=== PATIENT | female | born 1955 | race Caucasian/White ===

== ENCOUNTER 2019-11-08 20:43 | Emergency (ER) | payer OTHER, SELFPAY ==
[2019-11-08 20:53] VITALS: BP 118/66; PULSE 97; RESP 19; TEMP 36.6; O2SAT 97; BMI 38.2
--- NOTE | 2019-11-08 20:53 | ED.LOWEXIN ---
HPI - Extremity Injury (Lower) General Chief Complaint: Extremity Injury, Lower Stated Complaint: left knee pain Time Seen by Provider: 11/08/19 20:52 History of Present Illness HPI Narrative: 64-year-old woman with known left knee injuries and ganglion cyst was reaching up to grab a pain and stood on her tiptoes and experienced acute severe lancinating pain in the left knee. There was no specific trauma other than the extension. She was not able to bear weight and is in significant pain on arrival in the emergency room. Related Data Home Medications Medication Instructions Recorded Confirmed atorvastatin 10 mg tablet 10 mg PO BEDTIME 02/21/19 11/08/19 levothyroxine 50 mcg capsule 50 mcg PO QAM cap 02/21/19 11/08/19 aspirin 81 mg chewable tablet 81 mg PO DAILY 07/04/19 11/08/19 dupilumab 300 mg/2 mL subcutaneous 300 mg SUBCUT Q2W 08/01/19 11/08/19 syringe Previous Rx's Medication Instructions Recorded trazodone 100 mg tablet 200 mg PO BEDTIME #180 tab 04/11/19 venlafaxine 150 mg 150 mg PO DAILY #90 cap 04/11/19 capsule,extended release 24 hr duloxetine 60 mg capsule,delayed 60 mg PO BID #180 cap 10/31/19 release morphine 15 mg PO Q8H PRN #10 tab 11/08/19 Allergies Allergy/AdvReac Type Severity Reaction Status Date / Time adhesive tape Allergy Severe rash Verified 11/08/19 21:36 pseudoephedrine Allergy Severe tachy Verified 11/08/19 21:36 [From Sudafed] Sulfa (Sulfonamide Allergy Severe hives Verified 11/08/19 21:36 Antibiotics) fluticasone Allergy Intermediate hives Verified 11/08/19 21:36 [From Advair Diskus] salmeterol Allergy Intermediate hives Verified 11/08/19 21:36 [From Advair Diskus] naproxen Allergy Mild hives Verified 11/08/19 21:36 erythromycin base AdvReac Intermediate vomiting Verified 11/08/19 21:36 Review of Systems Review of Systems Narrative: Pertinent positive and negative findings as per HPI Remainder of review of systems is otherwise unremarkable for Constitutional: Fevers, chills, weakness ENT: No sore throat, neck pain, ear pain CV: Chest pain, palpitations, dyspnea on exertion Respiratory: Cough, wheeze, dyspnea GI: Nausea, vomiting, diarrhea, change in bowel habits, black or bloody stools : Dysuria, hematuria, flank pain MS: Muscle weakness, numbness, joint swelling or warmth Skin: Rashes, nonhealing lesions Neuro: Syncope, dizziness, tingling Psych: Depression, anxiety, suicidal ideation Endocrine: Fatigue, heat or cold intolerance, very dry skin Heme: Easy bruising or bleeding Allergy: Seasonal rhinorrhea, itchy eyes Patient History Medical History (Updated 11/08/19 @ 21:50 by Kimmy Larkin MD) Anxiety (Acute) History of posttraumatic stress disorder (PTSD) (Acute) Hypothyroid (Acute) Major depressive disorder, recurrent severe without psychotic features (Acute) Surgical History (Updated 11/08/19 @ 21:08 by Kimmy Larkin MD) H/O dilation and curettage (Acute) H/O hysterectomy with oophorectomy (Acute) H/O left wrist surgery (Acute) H/O sinus surgery (Acute) History of left knee surgery (Acute) Hx of breast biopsy (Acute) S/P rotator cuff repair (Acute) Social History Smoking Status: Never smoker Smoking Status: Never smoker Exam Narrative Exam Narrative: General: Alert appropriate in no acute distress Respiratory: Able to speak in full sentences, no obvious respiratory distress Skin: No obvious rashes, warm and dry Neurologic: Grossly intact no obvious asymmetries or abnormalities Psych, appropriate insight and affect, cooperative Left knee: No significant effusion, tender through the entire knee with more tenderness along the medial aspect of the knee. She is too tender to do any range of motion testing and having difficulty flexing or fully straightening the leg. Position of comfort is at approximately 20-30 degrees of flexion. There is no obvious deformity. She is neurovascularly intact distal. Initial Vital Signs Initial Vital Signs: Vital Signs Temperature 97.8 F 11/08/19 20:53 Pulse Rate 97 H 11/08/19 20:53 Respiratory Rate 19 11/08/19 20:53 Blood Pressure 118/66 11/08/19 20:53 Pulse Oximetry 97 11/08/19 20:53 Course Orders Ordered: Discontinued Medications Hydromorphone HCl (Dilaudid) 2 mg IM NOW ONE Stop: 11/08/19 21:03 Last Admin: 11/08/19 21:17 Dose: 2 mg Documented by: MILES Oxycodone/Acetaminophen (Endocet 5/325 Prepack) 1 bottle [facility] ONE Stop: 11/08/19 21:37 Last Admin: 11/08/19 21:46 Dose: 1 bottle Documented by: MILES Vital Signs Vital signs: Vital Signs - 8 hr 11/08/19 20:53 Temperature 97.8 F Pulse Rate 97 H Respiratory Rate 19 Blood Pressure 118/66 Pulse Oximetry 97 MDM - Extremity Injury (Lower) Imaging Data Left knee MRI: Radiologist's Impression: Study was done at [facility] on 10/17/2019 patient has an appointment with Dr. Mccauley, orthopedist on 11/13/2023 pain in the left knee. MRI was done in anticipation of that visit. She has the report and disc available for review. Report indicates: Tricompartmental osteoarthritis Persistent oblique tear at the posterior horn medial meniscus Persistent small radial or vertical tear at the inner 3rd of the lateral meniscal body 2.4 x 1.8 x 0.6 cm ganglion or synovial cyst between the superficial medial collateral ligament and the medial meniscal tibial ligaments without ligamentous tear Gerald Brooks MD 10/17/2019 [facility] Narrative Medical decision making narrative: Given the minimal injury prior to the excruciating pain I suspect that the full extension in reaching up to grab the kelly allowed her to rupture the ganglion or synovial cyst. She is neurovascularly intact, she has crutches at home, she has a follow-up orthopedic appointment already scheduled. She is placed in a knee immobilizer for pain control. Previous orthopedic surgeries have indicated that she does best with oral immediate release morphine for pain control and shared he has meloxicam that she uses twice a day. Will have her nonweightbearing, knee immobilizer in place as is helpful, crutches and keep her orthopedic follow-up in 5 days as previously scheduled Discharge Plan Departure Patient Disposition: Home Clinical Impression: Acute knee pain Qualifiers: Laterality: left Qualified Code(s): M25.562 - Pain in left knee Instructions: DI Ganglion Cyst Activity Restrictions/Additional Instructions: Thank you for coming in today Given the acute severe pain with the mechanism of injury being acute extension of the joint I suspect that the noted ganglion or synovial cyst in the medial part of your knee has ruptured. Aside from treating the acute pain there is nothing else that needs to be done at this time. Because of the pain I am concerned that your knee is less stable so I have given you a knee immobilizer. I would recommend crutches and a knee immobilizer until your able to safely and comfortably bear weight. Please keep your appointment next week with Dr. Mccauley regarding the ongoing knee issues. I do hope you feel better soon Prescriptions: New morphine 15 mg tablet 15 mg PO Q8H PRN (Reason: pain) Qty: 10 RF: 0 No Action levothyroxine 50 mcg capsule 50 mcg PO QAM RF: 0 atorvastatin [Lipitor] 10 mg tablet 10 mg PO BEDTIME RF: 0 duloxetine [Cymbalta] 60 mg capsule,delayed release(DR/EC) 60 mg PO BID Qty: 180 RF: 3 venlafaxine 150 mg capsule,extended release 24hr 150 mg PO DAILY Qty: 90 RF: 3 trazodone 100 mg tablet 200 mg PO BEDTIME Qty: 180 RF: 3 aspirin [Aspirin Childrens] 81 mg tablet,chewable 81 mg PO DAILY RF: 0 Dupixent 300 mg/2 mL syringe 300 mg SUBCUT Q2W RF: 0 Referrals: Momo Mccauley MD [Non-Staff] - Tamia Cabral PA-C [Primary Care Provider] -
[2019-11-08] MEDS: HYDROMORPHONE 1 MG INJ 2 MG IM (21:17)
[2019-11-08] MEDS: OXYCODONE/APAP 5/325 PREPACK 1 BOTTLE MISC (21:46)
[2019-11-08 21:54] VITALS: BP 104/59; PULSE 84; RESP 16; O2SAT 95
== END 2019-11-08 21:55 | disposition home or self-care (01) ==
PROVIDERS: Emergency Provider Emergency Medicine; PCP Physician Assistant Medical; Referring Provider Orthopaedic Surgery
DX: M25.562 Pain in left knee (principal)
CPT/HCPCS: 96372; 99283; J1170

== ENCOUNTER 2020-08-23 18:31 | Emergency (ER) | payer OTHER, SELFPAY ==
[2020-08-23] VITALS (10 sets, daily range): BP systolic 113–142; BP diastolic 58–77; PULSE 89–97; RESP 17–31; TEMP 36.6–36.9; O2SAT 93–98
--- NOTE | 2020-08-23 19:05 | DI.RAD.S_ITS ---
PROCEDURE: XR CHEST 2V INDICATIONS: shortness of breath TECHNIQUE: 2 views of the chest were acquired. COMPARISON: [facility], CR, XR CHEST 1 VIEW, 05/22/2019, 16:23. FINDINGS: Surgical changes and devices: None. Lungs and pleura: Lungs are clear. No pleural effusions or pneumothorax. Mediastinum: Mediastinal contours are normal. Heart size is normal. Bones and chest wall: No suspicious bony abnormalities. Soft tissues appear unremarkable. IMPRESSION: No acute cardiopulmonary disease. Dictated by: Matthew Puri M.D. on 08/23/2020 at 20:01 Approved by: Matthew Puri M.D. on 08/23/2020 at 20:01
[2020-08-23 19:33] LABS: COVID19 -Nasal RAPID Negative (Negative)
--- NOTE | 2020-08-23 19:56 | ED.SOB ---
HPI - SOB/Dyspnea General Chief Complaint: Shortness of Breath/Dyspnea Stated Complaint: cold, asthma, getting worse Time Seen by Provider: 08/23/20 19:41 Source: patient Mode of arrival: Wheelchair Limitations: no limitations History of Present Illness HPI Narrative: Patient is a 65-year-old female history of asthma presenting with respiratory symptoms ongoing for the last 3 days ago. She has nonproductive cough she is complaining of chest tightness. She used her albuterol inhaler last night in got some erythema on her face and no longer wants to take albuterol. She denies any lip swelling tongue swelling or worsening difficulty breathing. She was seen at a walk-in clinic today she got an IM injection of Solu-Medrol and inhalers of Atrovent along with prednisone taper. She presents here with worsening shortness of breath and chest tightness. She also has a history of remote PE she is no longer on any anticoagulation. She denies any fever chills, or coffee MD Complaint: shortness of breath Onset (ago): day(s) (3) Related Data Home Medications Medication Instructions Recorded Confirmed atorvastatin 10 mg tablet 10 mg PO BEDTIME 02/21/19 06/12/20 levothyroxine 50 mcg capsule 50 mcg PO QAM cap 02/21/19 06/12/20 aspirin 81 mg chewable tablet 81 mg PO DAILY 07/04/19 06/12/20 dupilumab 300 mg/2 mL subcutaneous 300 mg SUBCUT Q2W 08/01/19 06/12/20 syringe cholecalciferol (vitamin D3) 125 125 mcg PO DAILY 12/25/19 06/12/20 mcg (5,000 unit) capsule cyclobenzaprine 10 mg tablet 10 mg PO TID 06/12/20 06/12/20 methoprednisolone PO taper for 6 .ROUTE 06/12/20 06/12/20 days Previous Rx's Medication Instructions Recorded venlafaxine 150 mg 150 mg PO DAILY #90 cap 03/20/20 capsule,extended release 24 hr duloxetine 60 mg capsule,delayed 60 mg PO BID #180 cap 05/05/20 release trazodone 100 mg tablet 100 mg PO BEDTIME #90 tab 06/12/20 levalbuterol HCl [Xopenex] 1.25 mg INHALATION Q4-6H PRN #75 ml 08/23/20 Allergies Allergy/AdvReac Type Severity Reaction Status Date / Time adhesive tape Allergy Severe rash Verified 08/23/20 19:06 pseudoephedrine Allergy Severe tachy Verified 08/23/20 19:06 [From Sudafed] Sulfa (Sulfonamide Allergy Severe hives Verified 08/23/20 19:06 Antibiotics) fluticasone Allergy Intermediate hives Verified 08/23/20 19:06 [From Advair Diskus] salmeterol Allergy Intermediate hives Verified 08/23/20 19:06 [From Advair Diskus] naproxen Allergy Mild hives Verified 08/23/20 19:06 erythromycin base AdvReac Intermediate vomiting Verified 08/23/20 19:06 albuterol AdvReac Mild Verified 08/23/20 19:06 Review of Systems Review of Systems Narrative: GENERAL: Denies chills, fatigue, malaise, fever, sweats, travel HEENT: Denies sinus pain, ear pain, sore throat, difficulty swallowing, neck pain RESPIRATORY: See HPI CARDIOVASCULAR: Denies chest pain, palpitations, orthopnea, edema GASTROINTESTINAL: Denies nausea, vomiting, abdominal pain, diarrhea, constipation, melena. : Denies dysuria, frequency, incontinence, hematuria, urinary retention, flank pain. MUSCULOSKELETAL: Denies weakness, joint pain, or bony pain SKIN: No rash, no erythema, no pruritus NEUROLOGIC: Denies weakness, dizziness, headache, numbness, change in speech, confusion PSYCHIATRIC: No concerning psychosocial issues. 12 point review of systems is negative except for those stated above and HPI Patient History Medical History Anxiety History of posttraumatic stress disorder (PTSD) Hypothyroid Major depressive disorder, recurrent severe without psychotic features Surgical History H/O dilation and curettage H/O hysterectomy with oophorectomy H/O left wrist surgery H/O sinus surgery History of left knee surgery Hx of breast biopsy S/P rotator cuff repair Social History Smoking Status: Never smoker Smoking Status: Never smoker Substance Use Type: does not use Exam Initial Vital Signs Initial Vital Signs: Vital Signs Temperature 97.9 F 08/23/20 18:58 Pulse Rate 95 H 08/23/20 18:58 Respiratory Rate 17 08/23/20 18:58 Blood Pressure 142/77 H 08/23/20 18:58 Pulse Oximetry 97 08/23/20 18:58 GENERAL: Alert 65-year-old female slightly anxious and in no acute distress. HEENT: Head atraumatic,EOMI, pupils reactive, face symmetric, moist mucous membranes CARDIOVASCULAR: Regular rate and rhythm without murmurs, rubs or gallops. RESPIRATORY: Breath sounds equal bilaterally, no wheezes rales or rhonchi. ABDOMEN: Soft, nontender. Normoactive bowel sounds all 4 quadrants. No guarding or rebound. EXTREMITIES: Normal range of motion, no clubbing or edema. Neurovascularly intact NEUROLOGICAL: Alert and oriented x4.Normal gait and speech. Cranial nerves II through XII grossly intact. SKIN: Warm, dry, no laceration, no petechiae, no rashes or lesions. Course Orders Ordered: ED Orders 08/23/20 19:03 EKG-12 Lead Stat 08/23/20 19:05 XR chest 2V Stat COVID19 Stat Measure peak expiratory flow ONCE RT Consult Eval and Treat Now 08/23/20 19:57 CT angio chest PE protocol Stat 08/23/20 19:58 Complete Blood Count AUTO DIFF Stat Comprehensive Metabolic Panel Stat Lactate (Lactic Acid) Stat Discontinued Medications Levalbuterol HCl (Levalbuterol 0.63 Mg/3 Ml Neb) 0.63 mg INH NOW ONE Stop: 08/23/20 19:58 Last Admin: 08/23/20 20:37 Dose: Not Given Documented by: KWAKU Levalbuterol HCl (Levalbuterol 1.25 Mg/0.5 Ml Neb) 1.25 mg INH NOW ONE Stop: 08/23/20 20:18 Last Admin: 08/23/20 20:20 Dose: 1.25 mg Documented by: MICHELLE Levalbuterol HCl (Levalbuterol Hfa 200 Puff Inh) 1 puff INH NOW ONE Stop: 08/23/20 22:06 Last Admin: 08/23/20 22:22 Dose: Not Given Documented by: KWAKU Vital Signs Vital signs: Vital Signs - 8 hr 08/23/20 19:14 08/23/20 19:30 08/23/20 20:00 Temperature Pulse Rate 90 91 H 89 Respiratory Rate 19 21 23 Blood Pressure 138/69 Pulse Oximetry 94 93 93 08/23/20 20:20 08/23/20 20:30 08/23/20 21:00 Temperature 98.4 F Pulse Rate 94 H 92 H 97 H Respiratory Rate 20 31 H 23 Blood Pressure Pulse Oximetry 96 98 93 08/23/20 21:25 08/23/20 21:30 08/23/20 22:00 Temperature Pulse Rate 93 H 91 H 90 Respiratory Rate 24 25 H 27 H Blood Pressure 125/58 L 128/64 113/73 Pulse Oximetry 95 94 95 MDM - SOB/Dyspnea Lab Data Attestation: I reviewed the patient's lab results. Result diagrams: 08/23/20 19:58 08/23/20 19:58 Labs: Lab Results 08/23/20 08/23/20 08/23/20 Range/Units 19:05 19:58 19:58 WBC 7.3 (4.5-11.0) X10^3/uL RBC 4.37 (4.0-5.2) X10^6/uL Hgb 13.0 (12.0-16.0) g/dL Hct 39.7 (36-46) % MCV 90.7 (80-100) fL MCH 29.7 (26-34) PG MCHC 32.7 (30-36) % RDW 13.8 (11.6-14.8) % Plt Count 241 (150-400) X10^3/uL Neut % (Auto) 86.3 H (50-75) % Lymph % (Auto) 11.7 L (25-40) % Da[place]hin % (Auto) 1.6 L (3-14) % Eos % (Auto) 0.1 L (2-4) % Baso % (Auto) 0.3 (0-2) % Neut # (Auto) 6300 (2350-2242) /uL Lymph # (Auto) 900 L (9274-0007) /uL [place]hin # (Auto) 100 (0-900) /uL Eos # (Auto) 0 (0-450) /uL Baso # (Auto) 0 (0-100) /uL Sodium 137 (137-145) mmol/L Potassium 4.0 (3.4-5.1) mmol/L Chloride 107 (98-107) mmol/L Carbon Dioxide 22 (22-32) mmol/L BUN 21 H (7-17) mg/dL Creatinine 0.67 (0.52-1.04) mg/dL Estimated GFR > 60.0 (>60) mL/min BUN/Creatinine Ratio 31.3 H (6-22) Glucose 167 H (80-110) mg/dL Lactate (0.7-2.1) mmol/L Calcium 9.7 (8.4-10.2) mg/dL Total Bilirubin 0.4 (0.2-1.3) mg/dL AST 46 H (14-36) IU/L ALT 38 H (<35) IU/L Alkaline Phosphatase 75 (38-126) U/L Total Protein 7.5 (6.3-8.2) g/dL Albumin 4.4 (3.5-5.0) g/dL Globulin 3.1 (1.7-4.1) g/dL Albumin/Globulin Ratio 1.4 (1.0-2.8) SARS-CoV-2 (PCR) Negative (Negative) 08/23/20 Range/Units 19:58 WBC (4.5-11.0) X10^3/uL RBC (4.0-5.2) X10^6/uL Hgb (12.0-16.0) g/dL Hct (36-46) % MCV (80-100) fL MCH (26-34) PG MCHC (30-36) % RDW (11.6-14.8) % Plt Count (150-400) X10^3/uL Neut % (Auto) (50-75) % Lymph % (Auto) (25-40) % Da[place]hin % (Auto) (3-14) % Eos % (Auto) (2-4) % Baso % (Auto) (0-2) % Neut # (Auto) (1924-4314) /uL Lymph # (Auto) (1396-1761) /uL [place]hin # (Auto) (0-900) /uL Eos # (Auto) (0-450) /uL Baso # (Auto) (0-100) /uL Sodium (137-145) mmol/L Potassium (3.4-5.1) mmol/L Chloride (98-107) mmol/L Carbon Dioxide (22-32) mmol/L BUN (7-17) mg/dL Creatinine (0.52-1.04) mg/dL Estimated GFR (>60) mL/min BUN/Creatinine Ratio (6-22) Glucose (80-110) mg/dL Lactate 1.8 (0.7-2.1) mmol/L Calcium (8.4-10.2) mg/dL Total Bilirubin (0.2-1.3) mg/dL AST (14-36) IU/L ALT (<35) IU/L Alkaline Phosphatase (38-126) U/L Total Protein (6.3-8.2) g/dL Albumin (3.5-5.0) g/dL Globulin (1.7-4.1) g/dL Albumin/Globulin Ratio (1.0-2.8) SARS-CoV-2 (PCR) (Negative) Urine Dip Bedside Urine Glucose Negative Bedside Urine Bilirubin - Negative Bedside Urine Ketone - Negative Urine Specific Cushing 1.020 Bedside Urine Occult Blood + Bedside Urine pH 6.0 Bedside Urine Protein - Negative Bedside Urine Urobilinogen - Negative Bedside Urine Nitrite - Negative Bedside Urine Leukocytes - Negative Esterase Imaging Data Chest x-ray: Radiologist's Impression: PROCEDURE: XR CHEST 2V INDICATIONS: shortness of breath TECHNIQUE: 2 views of the chest were acquired. COMPARISON: [facility], XR CHEST 1 VIEW, 05/22/2019, 16:23. FINDINGS: Surgical changes and devices: None. Lungs and pleura: Lungs are clear. No pleural effusions or pneumothorax. Mediastinum: Mediastinal contours are normal. Heart size is normal. Bones and chest wall: No suspicious bony abnormalities. Soft tissues appear unremarkable. IMPRESSION: No acute cardiopulmonary disease. Dictated by: Matthew Puri M.D. on 08/23/2020 at 20:01 CT scan - chest: Radiologist's Impression: PROCEDURE: CT ANGIO CHEST PE PROTOCOL INDICATIONS: prior PE with SOB TECHNIQUE: After the administration of intravenous contrast, 2 mm thick sections acquired from the pulmonary apices to the posterior costophrenic angles. 3-dimensional maximum intensity projection (MIP) coronal and sagittal reformats were then acquired through the thorax. For radiation dose reduction, the following was used: automated exposure control, adjustment of mA and/or kV according to patient size. COMPARISON: [facility], XR CHEST 2V, 08/23/2020, 19:28. FINDINGS: Image quality: Excellent. Pulmonary arteries: Pulmonary arteries are normal in size, and demonstrate no intraluminal filling defects to suggest central pulmonary embolism. There is a small right lower lobe nodule. Nodule 1: 4mm; RLL; series 5, image 163. Lungs and pleura: Lungs are clear. No pleural effusions or pneumothorax. Central and peripheral airways are patent. Mediastinum: Heart size is normal, without pericardial effusion. Mild mediastinal adenopathy. There is a 1.1 cm right paratracheal lymph node. A 1.4 cm subcarinal lymph node is noted. Thoracic aorta is normal in caliber and enhancement. Esophagus is normal in caliber, without hiatal hernia. Bones and chest wall: No suspicious bony lesions. Ribs and thoracic spine appear intact throughout. Thyroid gland is normal. No axillary or supraclavicular adenopathy. Abdomen: Visualized upper abdominal solid organs appear normal in the early arterial phase of enhancement. IMPRESSION: 1. No evidence for pulmonary embolism. 2. Mild mediastinal lymphadenopathy. This finding is nonspecific and may be secondary to infectious, inflammatory or neoplastic etiology. Recommend clinical correlation and follow up. 3. A 4 mm right lower lobe nodule. Please see enclosed follow-up recommendation. Fleischner Society criteria for SOLID lung nodule followup. Nodule size (mm)Low-risk patientHigh-risk patient?4No follow-up neededFollow-up at 12 mo; if no change, no further follow-up>2-2Rnrbhd-mh CT at 12 mo; if no change, no further follow-up needed.Initial follow-up CT at 6-12 mo, then 18-24 mo if no change. >6-8Initial follow-up CT at 6-12 mo, then 18-24 mo if no change. Initial follow-up CT at 3-6 mo, then 9-12 mo and 24 mo if no change. >8Follow-up CT at 3, 9, 24 mo. Or PET and/or biopsy.Same as for low-risk pts. Dictated by: Matthew Puri M.D. on 08/23/2020 at 21:02 ECG Data Attestation: I personally reviewed and interpreted this ECG as follows: Prior ECG tracings: not available for review Interpretation: Normal sinus rhythm rate 91 p.r. interval 194 QRS [address] changes Q-wave noted in lead 3 only MDM Narrative Medical decision making narrative: Patient improved this open next. Signs and symptoms are consistent with asthma exacerbation. No indication for antibiotics at this time. CT is negative for PE. Her symptoms improved with Xopenex. She has already been given prescription for long prednisone taper. I have instructed her again how to take this medication. She is given Xopenex as opposed to albuterol. I recommend she use this as a rescue inhaler and have advised her that if her pain is not a rescue inhaler and was used as an adjunct with albuterol or Xopenex. I discussed all findings with the patient and spouse, Education has been performed regarding treatment plan, diagnosis, warning signs and symptoms and all concerns have been addressed. Verbally agree with and understood all of the above. Discharge Plan Departure Patient Disposition: Home Clinical Impression: Asthma with exacerbation Qualifiers: Asthma severity: moderate Asthma persistence: persistent Qualified Code(s): J45.41 - Moderate persistent asthma with (acute) exacerbation Instructions: DI for Asthma -- Adult Activity Restrictions/Additional Instructions: *You have been diagnosed with asthma exacerbation *What to do: At this time no antibiotics are indicated. CT scan is negative for pulmonary embolism. Recommend resting. *Continue to take medications as directed Xopenex 1-2 puffs every 4 hours if needed for shortness of breath Atrovent 1-2 times daily to be used with Xopenex, this is not a rescue inhaler Take prednisone as previously prescribed *Follow up with your primary care provider in 2-3 days *Return to ER if you should have increase use of Dovonex, increasing shortness of breath, chest pain or any new, worsening or concerning symptoms Prescriptions: New levalbuterol HCl [Xopenex] 1.25 mg/3 mL solution for nebulization 1.25 mg inhalation Q4-6H PRN (Reason: shortness of breath or wheezing) Qty: 75 RF: 0 No Action levothyroxine 50 mcg capsule 50 mcg PO QAM RF: 0 atorvastatin [Lipitor] 10 mg tablet 10 mg PO BEDTIME RF: 0 cholecalciferol (vitamin D3) 125 mcg (5,000 unit) capsule 125 mcg PO DAILY RF: 0 venlafaxine 150 mg capsule,extended release 24hr 150 mg PO DAILY Qty: 90 RF: 3 aspirin [Aspirin Childrens] 81 mg tablet,chewable 81 mg PO DAILY RF: 0 Dupixent Syringe 300 mg/2 mL syringe 300 mg SUBCUT Q2W RF: 0 cyclobenzaprine 10 mg tablet 10 mg PO TID RF: 0 methoprednisolone PO taper for 6 days .Route RF: 0 trazodone 100 mg tablet 100 mg PO BEDTIME Qty: 90 RF: 3 duloxetine [Cymbalta] 60 mg capsule,delayed release(DR/EC) 60 mg PO BID Qty: 180 RF: 3 Referrals: Tamia Cabral PA-C [Primary Care Provider] -
[2020-08-23 20:06] LABS: Add Manual Diff / Slide Review NO; Basophils Absolute Auto 0 /uL (0-100); Basophils Percent Auto 0.3 % (0-2); Eosinophils Absolute Auto 0 /uL (0-450); Eosinophils Percent Auto 0.1 % (2-4); Hematocrit 39.7 % (36-46); Lymphocytes Absolute Auto 900 /uL (1100-4500); Lymphocytes Percent Auto 11.7 % (25-40); Mean Corpuscular HGB Conc 32.7 % (30-36); Mean Corpuscular Hemoglobin 29.7 PG (26-34); Mean Corpuscular Volume 90.7 fL (80-100); Monocytes Absolute Auto 100 /uL (0-900); Monocytes Percent Auto 1.6 % (3-14); Neutrophils Absolute Auto 6300 /uL (1500-7000); Neutrophils Percent Auto 86.3 % (50-75); Platelet Count 241 X10^3/uL (150-400); Red Blood Cell Count 4.37 X10^6/uL (4.0-5.2); Red Cell Distribution Width 13.8 % (11.6-14.8); White Blood Cell Count 7.3 X10^3/uL (4.5-11.0)
[2020-08-23 20:17] LABS: Lactate (Lactic Acid) 1.8 mmol/L (0.7-2.1)
[2020-08-23 20:19] LABS: Alanine Aminotransferase 38 IU/L (<35); Albumin 4.4 g/dL (3.5-5.0); Albumin Globulin Ratio 1.4 (1.0-2.8); Alkaline Phosphatase 75 U/L (38-126); Aspartate Aminotransferase 46 IU/L (14-36); BUN Creatinine Ratio 31.3 (6-22); Bilirubin Total 0.4 mg/dL (0.2-1.3); Blood Urea Nitrogen 21 mg/dL (7-17); Calcium 9.7 mg/dL (8.4-10.2); Carbon Dioxide 22 mmol/L (22-32); Chloride 107 mmol/L (98-107); Estimated Glomerular Filt Rate > 60.0 mL/min (>60); Globulin 3.1 g/dL (1.7-4.1); Glucose 167 mg/dL (80-110); HEMOLYSIS < 15 (0-50); Sodium 137 mmol/L (137-145); Total Protein 7.5 g/dL (6.3-8.2)
[2020-08-23] MEDS: LEVALBUTEROL 1.25 MG/0.5 ML NEB INH (20:20)
--- NOTE | 2020-08-23 21:30 | PC.NURSE ---
accepting provider at [facility] requesting BiPap for pt's ABG. Pt advised and educated by RT on purpose of Bipap. pt refusing. aware.
== END 2020-08-23 22:23 | disposition home or self-care (01) ==
PROVIDERS: Emergency Provider Emergency Medicine; PCP Physician Assistant Medical
DX: J45.41 Moderate persistent asthma with (acute) exacerbation (principal); R06.02 Shortness of breath; R07.9 Chest pain, unspecified; Z20.822 Contact with and (suspected) exposure to COVID-19
CPT/HCPCS: 36415; 71046; 71275; 80053; 81003; 83605; 85025; 87635; 93005; 94150; 94640; 99284; C9803; J7614; Q9967

== ENCOUNTER 2020-08-25 09:57 | Inpatient (IN) | payer OTHER, SELFPAY ==
[2020-08-25] VITALS (21 sets, daily range): BP systolic 115–150; BP diastolic 55–84; PULSE 72–90; RESP 14–36; TEMP 36.3–37.2; O2SAT 92–99; BMI 39.1
--- NOTE | 2020-08-25 10:23 | ED.SOB ---
HPI - SOB/Dyspnea <Beatrice Sorto, [employer] PROFESSOR-BC - Last Filed: 08/25/20 14:40> General Chief Complaint: Shortness of Breath/Dyspnea Stated Complaint: Asthma flare up Time Seen by Provider: 08/25/20 10:19 Source: patient Mode of arrival: Ambulatory Limitations: no limitations History of Present Illness HPI Narrative: The patient is a 65-year-old with history of asthma presents with a chief complaint of worsening shortness of breath and an asthma exacerbation. She was actually here 2 days ago, received chest x-ray, coronavirus swab, was placed on a steroid pack for which she is on day 3. She does note that she did not get albuterol last time as she states she had an allergy, which is clarified to be red skin on her forehead. She presents this time requesting albuterol. She does complain of shortness of breath with exertion today. She notes that a few days ago, she had a CT a to rule out pulmonary embolism, as well as a chest x-ray. The past few days she states she has started producing yellow off colored sputum. Denies any fevers. She states she thinks she is taking 40 mg of prednisone per day, but is not sure. She has been admitted for her asthma prior, has never been intubated. Most recent admission was a few years ago at [facility] for several days. Related Data Home Medications Medication Instructions Recorded Confirmed atorvastatin 10 mg tablet 20 mg PO BEDTIME 02/21/19 08/25/20 levothyroxine 50 mcg capsule 50 mcg PO QAM cap 02/21/19 08/25/20 aspirin 81 mg chewable tablet 81 mg PO DAILY 07/04/19 08/25/20 dupilumab 300 mg/2 mL subcutaneous 300 mg SUBCUT Q2W 08/01/19 08/25/20 syringe cholecalciferol (vitamin D3) 125 125 mcg PO DAILY 12/25/19 08/25/20 mcg (5,000 unit) capsule prednisolone acetate [Pred Forte] 1 drp EYE-RIGHT BID 08/25/20 08/25/20 prednisone 40 mg PO DAILY 08/25/20 08/25/20 venlafaxine [Effexor XR] 150 mg PO DAILY 08/25/20 08/25/20 Previous Rx's Medication Instructions Recorded duloxetine 60 mg capsule,delayed 60 mg PO BID #180 cap 05/05/20 release trazodone 100 mg tablet 100 mg PO BEDTIME #90 tab 06/12/20 levalbuterol HCl [Xopenex] 1.25 mg INHALATION Q4-6H PRN #75 ml 08/23/20 levalbuterol tartrate [Xopenex HFA] 2 puff INHALATION Q4-6H PRN #15 g 08/24/20 Allergies Allergy/AdvReac Type Severity Reaction Status Date / Time adhesive tape Allergy Severe rash Verified 08/23/20 19:06 pseudoephedrine Allergy Severe tachy Verified 08/23/20 19:06 [From Sudafed] Sulfa (Sulfonamide Allergy Severe hives Verified 08/23/20 19:06 Antibiotics) fluticasone Allergy Intermediate hives Verified 08/23/20 19:06 [From Advair Diskus] salmeterol Allergy Intermediate hives Verified 08/23/20 19:06 [From Advair Diskus] naproxen Allergy Mild hives Verified 08/23/20 19:06 erythromycin base AdvReac Intermediate vomiting Verified 08/23/20 19:06 albuterol AdvReac Mild Verified 08/23/20 19:06 Review of Systems <LEELA Malin - Last Filed: 08/25/20 14:40> Review of Systems Narrative: GENERAL: Denies chills, fatigue, malaise, fever, sweats. HEENT: Denies sinus pain, ear pain, sore throat, difficulty swallowing, dizziness. RESPIRATORY: See HPI CARDIOVASCULAR: Denies chest pain, palpitations, orthopnea, edema, GASTROINTESTINAL: Denies nausea, vomiting, abdominal pain, diarrhea, constipation, melena. : Denies dysuria, frequency, incontinence, hematuria, urinary retention. MUSCULOSKELETAL: denies weakness, joint pain, or bony pain SKIN: Denies rash, skin lesions, or other NEUROLOGIC: Denies weakness, headache, numbness, change in speech, confusion, seizures, incoordination. PSYCHIATRIC: No concerning psychosocial issues. 12 point review of systems is negative except for those stated above Patient History <LEELA Malin - Last Filed: 08/25/20 14:40> Medical History (Updated 08/25/20 @ 17:14 by Guillermina Aviles RN) Anxiety Diabetes History of posttraumatic stress disorder (PTSD) Hypothyroid Major depressive disorder, recurrent severe without psychotic features Surgical History H/O dilation and curettage H/O hysterectomy with oophorectomy H/O left wrist surgery H/O sinus surgery History of left knee surgery Hx of breast biopsy S/P rotator cuff repair Social History household members: spouse Smoking Status: Never smoker alcohol intake: current Smoking Status: Never smoker Substance Use Type: does not use Exam <MCKAYLA Malin - Last Filed: 08/25/20 14:40> Narrative Exam Narrative: GENERAL: This is a well-nourished, well-developed patient, in no acute distress HEAD: Atraumatic. Normocephalic. No temporal or scalp tenderness. EYES: Pupils equal round and reactive. Extraocular motions intact. No scleral icterus. No injection or drainage. ENT: Nose without bleeding, purulent drainage or septal hematoma. Throat without erythema, tonsillar hypertrophy or exudate. Uvula midline. Airway patent. NECK: Trachea midline. No JVD or lymphadenopathy. Supple, nontender, no meningeal signs. CARDIOVASCULAR: Regular rate and rhythm without murmurs, gallops, or rubs. RESPIRATORY: Tachypneic, 2 word dyspnea, decreased to auscultation with very slight expiratory wheeze noted upper left, however not try potting and lying back reclining on stretcher GASTROINTESTINAL: Abdomen soft, non-tender, nondistended. No hepato-splenomegaly, or palpable masses. No guarding. EXTREMITIES: No clubbing, cyanosis, or edema. No joint tenderness, effusion, or edema noted. BACK: Nontender without deformity or crepitance. No flank tenderness. NEURO: AOx3. SKIN: No rash or erythema on visible skin Initial Vital Signs Initial Vital Signs: Vital Signs Temperature 98.9 F 08/25/20 10:19 Pulse Rate 90 08/25/20 10:19 Respiratory Rate 16 08/25/20 10:19 Blood Pressure 140/68 08/25/20 10:19 Pulse Oximetry 98 08/25/20 10:19 <David Powers DO - Last Filed: 08/25/20 17:25> Initial Vital Signs Initial Vital Signs: Vital Signs Temperature 98.9 F 08/25/20 10:19 Pulse Rate 90 08/25/20 10:19 Respiratory Rate 16 08/25/20 10:19 Blood Pressure 140/68 08/25/20 10:19 Pulse Oximetry 98 08/25/20 10:19 Scores <Beatrice OSBALDO Sorto-BC - Last Filed: 08/25/20 14:40> GCS [place] coma scale eye opening: Spontaneous [place] coma scale verbal response: Orientated [place] coma scale motor response: Obey commands [place] coma scale total score: 15 Course <Beatrice OSBALDO Sorto-BC - Last Filed: 08/25/20 14:40> Orders Ordered: ED Orders 08/25/20 10:17 COVID19 Stat 08/25/20 10:56 XR chest 2V Stat Sputum Culture Stat 08/25/20 11:16 Complete Blood Count AUTO DIFF Stat Comprehensive Metabolic Panel Stat Magnesium Stat NT-proBNP (BNP-Adult 18+) Stat Partial Thromboplastin Time Stat Prothrombin Time INR Stat Troponin & CK Cardiac Panel Stat 08/25/20 12:55 Arterial Blood Gas Stat Acetaminophen (Acetaminophen 325 Mg Tablet) 650 mg PO Q6HR PRN PRN Reason: Fever/Mild Pain (1-3) Last Admin: 08/25/20 17:18 Dose: 650 mg Documented by: LASHANDA Albuterol (Albuterol 2.5 Mg/3 Ml Neb (Adult)) 2.5 mg INH [id number] PRN PRN Reason: shortness of breath Albuterol/Ipratropium (Albuterol/Ipratropium 3 Ml Ampul) 3 ml INH RTBID JUSTIN Atorvastatin Calcium (Atorvastatin 20 Mg Tablet) 20 mg PO BEDTIME JUSTIN Duloxetine HCl (Duloxetine 30 Mg Capsule) 60 mg PO BID [facility] Enoxaparin Sodium (Enoxaparin 40 Mg/0.4 Ml Syringe) 40 mg SUBCUT DAILY [facility] Levothyroxine Sodium (Levothyroxine 50 Mcg Tablet) 50 mcg PO 0600 JUSTIN Prednisolone Acetate (Prednisolone Ophth Susp) 1 drops EYE-RIGHT BID [facility] Trazodone HCl (Trazodone 100 Mg Tablet) 100 mg PO BEDTIME JUSTIN Venlafaxine HCl (Venlafaxine Er 75 Mg Cap) 150 mg PO DAILY [facility] Vitamin D (Cholecalciferol (Vitamin D3) 5,000 Unit Tablet) 5,000 unit PO DAILY JUSTIN Discontinued Medications Albuterol (Albuterol 2.5 Mg/3 Ml Neb (Adult)) 2.5 mg INH NOW ONE Stop: 08/25/20 10:21 Last Admin: 08/25/20 11:04 Dose: 2.5 mg Documented by: ZACKERY Albuterol (Albuterol Hfa Mdi 60 Puff/8 Gm Inhaler) 2 puff INH NOW ONE Stop: 08/25/20 10:21 Last Admin: 08/25/20 10:32 Dose: 2 puff Documented by: ZACKERY Albuterol (Albuterol 2.5 Mg/3 Ml Neb (Adult)) 2.5 mg INH NOW ONE Stop: 08/25/20 11:52 Last Admin: 08/25/20 11:59 Dose: 2.5 mg Documented by: ZACKERY Magnesium Sulfate (Magnesium Sulfate) 2 gm in 50 mls @ 25 mls/hr IV NOW ONE Stop: 08/25/20 14:09 Last Infusion: 08/25/20 12:50 Dose: 0 mls/hr Documented by: KWAKU Cosigned by: ELIZABETH Admin: 08/25/20 12:23 Dose: 100 mls/hr Documented by: KWAKU Cosigned by: ELIZABETH Methylprednisolone (Methylprednisolone 125 Mg/2 Ml Vial) 125 mg IV NOW ONE Stop: 08/25/20 11:44 Last Admin: 08/25/20 11:50 Dose: 125 mg Documented by: KWAKU Vital Signs Vital signs: Vital Signs - 8 hr 08/25/20 10:19 08/25/20 10:28 08/25/20 10:53 Temperature 98.9 F Pulse Rate 90 80 81 Respiratory Rate 16 26 H 29 H Blood Pressure 140/68 Pulse Oximetry 98 99 94 08/25/20 11:00 08/25/20 11:05 08/25/20 11:28 Temperature Pulse Rate 86 82 Respiratory Rate 36 H 26 H Blood Pressure 128/69 115/58 L Pulse Oximetry 94 98 93 08/25/20 11:29 08/25/20 11:30 08/25/20 11:52 Temperature 97.5 F L Pulse Rate 80 81 Respiratory Rate 26 H 23 Blood Pressure 117/55 L Pulse Oximetry 93 92 08/25/20 11:59 08/25/20 12:00 08/25/20 12:23 Temperature Pulse Rate 78 82 80 Respiratory Rate 24 14 28 H Blood Pressure 124/60 Pulse Oximetry 99 98 94 08/25/20 12:30 08/25/20 13:00 08/25/20 13:30 Temperature Pulse Rate 84 79 83 Respiratory Rate 23 32 H 25 H Blood Pressure 122/55 L 116/56 L 118/58 L Pulse Oximetry 93 95 95 <David Powers, DO - Last Filed: 08/25/20 17:25> Orders Ordered: ED Orders 08/25/20 10:17 COVID19 Stat 08/25/20 10:56 XR chest 2V Stat Sputum Culture Stat 08/25/20 11:16 Complete Blood Count AUTO DIFF Stat Comprehensive Metabolic Panel Stat Magnesium Stat NT-proBNP (BNP-Adult 18+) Stat Partial Thromboplastin Time Stat Prothrombin Time INR Stat Troponin & CK Cardiac Panel Stat 08/25/20 12:55 Arterial Blood Gas Stat Acetaminophen (Acetaminophen 325 Mg Tablet) 650 mg PO Q6HR PRN PRN Reason: Fever/Mild Pain (1-3) Last Admin: 08/25/20 17:18 Dose: 650 mg Documented by: LASHANDA Albuterol (Albuterol 2.5 Mg/3 Ml Neb (Adult)) 2.5 mg INH [id number] PRN PRN Reason: shortness of breath Albuterol/Ipratropium (Albuterol/Ipratropium 3 Ml Ampul) 3 ml INH RTBID JUSTIN Atorvastatin Calcium (Atorvastatin 20 Mg Tablet) 20 mg PO BEDTIME JUSTIN Duloxetine HCl (Duloxetine 30 Mg Capsule) 60 mg PO BID [facility] Enoxaparin Sodium (Enoxaparin 40 Mg/0.4 Ml Syringe) 40 mg SUBCUT DAILY [facility] Levothyroxine Sodium (Levothyroxine 50 Mcg Tablet) 50 mcg PO 0600 [facility] Prednisolone Acetate (Prednisolone Ophth Susp) 1 drops EYE-RIGHT BID JUSTIN Trazodone HCl (Trazodone 100 Mg Tablet) 100 mg PO BEDTIME JUSTIN Venlafaxine HCl (Venlafaxine Er 75 Mg Cap) 150 mg PO DAILY [facility] Vitamin D (Cholecalciferol (Vitamin D3) 5,000 Unit Tablet) 5,000 unit PO DAILY JUSTIN Discontinued Medications Albuterol (Albuterol 2.5 Mg/3 Ml Neb (Adult)) 2.5 mg INH NOW ONE Stop: 08/25/20 10:21 Last Admin: 08/25/20 11:04 Dose: 2.5 mg Documented by: ZACKERY Albuterol (Albuterol Hfa Mdi 60 Puff/8 Gm Inhaler) 2 puff INH NOW ONE Stop: 08/25/20 10:21 Last Admin: 08/25/20 10:32 Dose: 2 puff Documented by: ZACKERY Albuterol (Albuterol 2.5 Mg/3 Ml Neb (Adult)) 2.5 mg INH NOW ONE Stop: 08/25/20 11:52 Last Admin: 08/25/20 11:59 Dose: 2.5 mg Documented by: ZACKERY Magnesium Sulfate (Magnesium Sulfate) 2 gm in 50 mls @ 25 mls/hr IV NOW ONE Stop: 08/25/20 14:09 Last Infusion: 08/25/20 12:50 Dose: 0 mls/hr Documented by: KWAKU Cosigned by: ELIZABETH Admin: 08/25/20 12:23 Dose: 100 mls/hr Documented by: KWAKU Cosigned by: ELIZABETH Methylprednisolone (Methylprednisolone 125 Mg/2 Ml Vial) 125 mg IV NOW ONE Stop: 08/25/20 11:44 Last Admin: 08/25/20 11:50 Dose: 125 mg Documented by: KWAKU Vital Signs Vital signs: Vital Signs - 8 hr 08/25/20 10:19 08/25/20 10:28 08/25/20 10:53 Temperature 98.9 F Pulse Rate 90 80 81 Respiratory Rate 16 26 H 29 H Blood Pressure 140/68 Pulse Oximetry 98 99 94 08/25/20 11:00 08/25/20 11:05 08/25/20 11:28 Temperature Pulse Rate 86 82 Respiratory Rate 36 H 26 H Blood Pressure 128/69 115/58 L Pulse Oximetry 94 98 93 08/25/20 11:29 08/25/20 11:30 08/25/20 11:52 Temperature 97.5 F L Pulse Rate 80 81 Respiratory Rate 26 H 23 Blood Pressure 117/55 L Pulse Oximetry 93 92 08/25/20 11:59 08/25/20 12:00 08/25/20 12:23 Temperature Pulse Rate 78 82 80 Respiratory Rate 24 14 28 H Blood Pressure 124/60 Pulse Oximetry 99 98 94 08/25/20 12:30 08/25/20 13:00 08/25/20 13:30 Temperature Pulse Rate 84 79 83 Respiratory Rate 23 32 H 25 H Blood Pressure 122/55 L 116/56 L 118/58 L Pulse Oximetry 93 95 95 MDM - SOB/Dyspnea <Beatrice Sorto [employer] PROFESSOR-BC - Last Filed: 08/25/20 14:40> Differential Diagnosis Differential diagnosis: Likely acute exacerbation of chronic obstructive airways disease, congestive heart failure, community acquired pneumonia and asthma with exacerbation Lab Data Attestation: I reviewed the patient's lab results. Result diagrams: 08/25/20 11:16 08/25/20 11:16 Labs: Lab Results 08/25/20 08/25/20 08/25/20 Range/Units 10:17 11:16 11:16 WBC 9.7 (4.5-11.0) X10^3/uL RBC 4.31 (4.0-5.2) X10^6/uL Hgb 13.0 (12.0-16.0) g/dL Hct 39.2 (36-46) % MCV 90.9 (80-100) fL MCH 30.2 (26-34) PG MCHC 33.2 (30-36) % RDW 13.7 (11.6-14.8) % Plt Count 225 (150-400) X10^3/uL Neut % (Auto) 81.7 H (50-75) % Lymph % (Auto) 13.5 L (25-40) % [place] % (Auto) 4.0 (3-14) % Eos % (Auto) 0.5 L (2-4) % Baso % (Auto) 0.3 (0-2) % Neut # (Auto) 7900 H (6770-7608) /uL Lymph # (Auto) 1300 (1918-4465) /uL [place] # (Auto) 400 (0-900) /uL Eos # (Auto) 0 (0-450) /uL Baso # (Auto) 0 (0-100) /uL PT 11.6 (10.1-12.7) SECONDS INR 1.0 (0.9-1.3) APTT 25 L (26.4-36.2) SECONDS ABG pH (7.35-7.45) ABG pCO2 (35-45) mmHg ABG pO2 (80-100) mmHg ABG HCO3 (22-26) mmol/L ABG Total CO2 (21-31) mmol/L ABG O2 Saturation (95-100) % ABG Base Excess (-2-2) mmol/L FiO2 Sodium (137-145) mmol/L Potassium (3.4-5.1) mmol/L Chloride (98-107) mmol/L Carbon Dioxide (22-32) mmol/L BUN (7-17) mg/dL Creatinine (0.52-1.04) mg/dL Estimated GFR (>60) mL/min BUN/Creatinine Ratio (6-22) Glucose (80-110) mg/dL Calcium (8.4-10.2) mg/dL Magnesium (1.6-2.3) mg/dL Total Bilirubin (0.2-1.3) mg/dL AST (14-36) IU/L ALT (<35) IU/L Alkaline Phosphatase (38-126) U/L Total Creatine Kinase (30-135) U/L CK-MB (CK-2) (<2.37) ng/mL CK-MB (CK-2) Rel Index (1.5-5.0) % Troponin I (0.01-0.034) ng/mL NT-Pro-B Natriuret Pep (<125) pg/mL Total Protein (6.3-8.2) g/dL Albumin (3.5-5.0) g/dL Globulin (1.7-4.1) g/dL Albumin/Globulin Ratio (1.0-2.8) SARS-CoV-2 (PCR) Negative (Negative) 08/25/20 08/25/20 Range/Units 11:16 12:55 WBC (4.5-11.0) X10^3/uL RBC (4.0-5.2) X10^6/uL Hgb (12.0-16.0) g/dL Hct (36-46) % MCV (80-100) fL MCH (26-34) PG MCHC (30-36) % RDW (11.6-14.8) % Plt Count (150-400) X10^3/uL Neut % (Auto) (50-75) % Lymph % (Auto) (25-40) % [place] % (Auto) (3-14) % Eos % (Auto) (2-4) % Baso % (Auto) (0-2) % Neut # (Auto) (7633-4201) /uL Lymph # (Auto) (8492-3881) /uL [place] # (Auto) (0-900) /uL Eos # (Auto) (0-450) /uL Baso # (Auto) (0-100) /uL PT (10.1-12.7) SECONDS INR (0.9-1.3) APTT (26.4-36.2) SECONDS ABG pH 7.49 H (7.35-7.45) ABG pCO2 29.7 L (35-45) mmHg ABG pO2 84 (80-100) mmHg ABG HCO3 23 (22-26) mmol/L ABG Total CO2 24 (21-31) mmol/L ABG O2 Saturation 97 (95-100) % ABG Base Excess 0.0 (-2-2) mmol/L FiO2 21 Sodium 137 (137-145) mmol/L Potassium 3.7 (3.4-5.1) mmol/L Chloride 105 (98-107) mmol/L Carbon Dioxide 25 (22-32) mmol/L BUN 23 H (7-17) mg/dL Creatinine 0.84 (0.52-1.04) mg/dL Estimated GFR > 60.0 (>60) mL/min BUN/Creatinine Ratio 27.4 H (6-22) Glucose 139 H (80-110) mg/dL Calcium 9.5 (8.4-10.2) mg/dL Magnesium 2.2 (1.6-2.3) mg/dL Total Bilirubin 0.4 (0.2-1.3) mg/dL AST 28 (14-36) IU/L ALT 35 H (<35) IU/L Alkaline Phosphatase 72 (38-126) U/L Total Creatine Kinase 128 (30-135) U/L CK-MB (CK-2) 1.15 (<2.37) ng/mL CK-MB (CK-2) Rel Index 0.9 L (1.5-5.0) % Troponin I < 0.012 (0.01-0.034) ng/mL NT-Pro-B Natriuret Pep 32 (<125) pg/mL Total Protein 7.1 (6.3-8.2) g/dL Albumin 4.6 (3.5-5.0) g/dL Globulin 2.5 (1.7-4.1) g/dL Albumin/Globulin Ratio 1.8 (1.0-2.8) SARS-CoV-2 (PCR) (Negative) Imaging Data Chest x-ray: Radiologist's Impression: [address] [place] [id number] ReportSigned Patient: Mora Kim DMR#: [id number]: 8Acct:[id number]/Sex: 65 / FDate of Service: 08/25/20Loc: EDAccession Number: [id number] Procedure: XR chest 2V Ordering Provider: Beatrice Sorto PROCEDURE: XR CHEST 2V INDICATIONS: sob, asthma TECHNIQUE: 2 views of the chest were acquired. COMPARISON: [facility], CR, XR CHEST 1 VIEW, 05/22/2019, 16:23. [facility], CR, XR CHEST 2V, 08/23/2020, 19:28. FINDINGS: Surgical changes and devices: None. Lungs and pleura: Lungs are clear without consolidation. No pleural effusions or pneumothorax. Mediastinum: Mediastinal contours are normal. Heart size is normal. Bones and chest wall: No suspicious bony abnormalities. Soft tissues appear unremarkable. IMPRESSION: 1. No acute cardiopulmonary disease. Dictated by: Juwan Louise M.D. on 08/25/2020 at 10:15 Approved by: Juwan Louise M.D. on 08/25/2020 at 10:17 ECG Data Attestation: I personally reviewed and interpreted this ECG as follows: Interpretation: Sinus rhythm. Ventricular rate 75. P.r. interval 170. QRS 90. viewed by Dr Yevgeniy THORNE Narrative Medical decision making narrative: The patient is a 65-year-old female with history of asthma who presents with a chief complaint of worsening of her asthma despite outpatient therapy. She was seen and evaluated at this facility 2 days ago, had a CT to rule out pulmonary embolism. She has been using her nebulizers every 4 hours at home. She has been on outpatient p.o. steroids. We re-did labs, BNP is normal, COVID is negative, chest x-ray is no acute findings. Given that the patient remains tachypneic, with 2-3 word dyspnea, I spoke with Dr Vuong regarding admission. He came down to evaluate the patient, we elected to do an ABG to help determine location of admission. Patient states understanding and appreciation. Patient to be admitted observation <David Powers DO - Last Filed: 08/25/20 17:25> Lab Data Labs: Lab Results 08/25/20 08/25/20 08/25/20 Range/Units 10:17 11:16 11:16 WBC 9.7 (4.5-11.0) X10^3/uL RBC 4.31 (4.0-5.2) X10^6/uL Hgb 13.0 (12.0-16.0) g/dL Hct 39.2 (36-46) % MCV 90.9 (80-100) fL MCH 30.2 (26-34) PG MCHC 33.2 (30-36) % RDW 13.7 (11.6-14.8) % Plt Count 225 (150-400) X10^3/uL Neut % (Auto) 81.7 H (50-75) % Lymph % (Auto) 13.5 L (25-40) % [place] % (Auto) 4.0 (3-14) % Eos % (Auto) 0.5 L (2-4) % Baso % (Auto) 0.3 (0-2) % Neut # (Auto) 7900 H (0508-3584) /uL Lymph # (Auto) 1300 (3338-3556) /uL [place] # (Auto) 400 (0-900) /uL Eos # (Auto) 0 (0-450) /uL Baso # (Auto) 0 (0-100) /uL PT 11.6 (10.1-12.7) SECONDS INR 1.0 (0.9-1.3) APTT 25 L (26.4-36.2) SECONDS ABG pH (7.35-7.45) ABG pCO2 (35-45) mmHg ABG pO2 (80-100) mmHg ABG HCO3 (22-26) mmol/L ABG Total CO2 (21-31) mmol/L ABG O2 Saturation (95-100) % ABG Base Excess (-2-2) mmol/L FiO2 Sodium (137-145) mmol/L Potassium (3.4-5.1) mmol/L Chloride (98-107) mmol/L Carbon Dioxide (22-32) mmol/L BUN (7-17) mg/dL Creatinine (0.52-1.04) mg/dL Estimated GFR (>60) mL/min BUN/Creatinine Ratio (6-22) Glucose (80-110) mg/dL Calcium (8.4-10.2) mg/dL Magnesium (1.6-2.3) mg/dL Total Bilirubin (0.2-1.3) mg/dL AST (14-36) IU/L ALT (<35) IU/L Alkaline Phosphatase (38-126) U/L Total Creatine Kinase (30-135) U/L CK-MB (CK-2) (<2.37) ng/mL CK-MB (CK-2) Rel Index (1.5-5.0) % Troponin I (0.01-0.034) ng/mL NT-Pro-B Natriuret Pep (<125) pg/mL Total Protein (6.3-8.2) g/dL Albumin (3.5-5.0) g/dL Globulin (1.7-4.1) g/dL Albumin/Globulin Ratio (1.0-2.8) SARS-CoV-2 (PCR) Negative (Negative) 08/25/20 08/25/20 Range/Units 11:16 12:55 WBC (4.5-11.0) X10^3/uL RBC (4.0-5.2) X10^6/uL Hgb (12.0-16.0) g/dL Hct (36-46) % MCV (80-100) fL MCH (26-34) PG MCHC (30-36) % RDW (11.6-14.8) % Plt Count (150-400) X10^3/uL Neut % (Auto) (50-75) % Lymph % (Auto) (25-40) % [place] % (Auto) (3-14) % Eos % (Auto) (2-4) % Baso % (Auto) (0-2) % Neut # (Auto) (3768-5343) /uL Lymph # (Auto) (5975-4967) /uL [place] # (Auto) (0-900) /uL Eos # (Auto) (0-450) /uL Baso # (Auto) (0-100) /uL PT (10.1-12.7) SECONDS INR (0.9-1.3) APTT (26.4-36.2) SECONDS ABG pH 7.49 H (7.35-7.45) ABG pCO2 29.7 L (35-45) mmHg ABG pO2 84 (80-100) mmHg ABG HCO3 23 (22-26) mmol/L ABG Total CO2 24 (21-31) mmol/L ABG O2 Saturation 97 (95-100) % ABG Base Excess 0.0 (-2-2) mmol/L FiO2 21 Sodium 137 (137-145) mmol/L Potassium 3.7 (3.4-5.1) mmol/L Chloride 105 (98-107) mmol/L Carbon Dioxide 25 (22-32) mmol/L BUN 23 H (7-17) mg/dL Creatinine 0.84 (0.52-1.04) mg/dL Estimated GFR > 60.0 (>60) mL/min BUN/Creatinine Ratio 27.4 H (6-22) Glucose 139 H (80-110) mg/dL Calcium 9.5 (8.4-10.2) mg/dL Magnesium 2.2 (1.6-2.3) mg/dL Total Bilirubin 0.4 (0.2-1.3) mg/dL AST 28 (14-36) IU/L ALT 35 H (<35) IU/L Alkaline Phosphatase 72 (38-126) U/L Total Creatine Kinase 128 (30-135) U/L CK-MB (CK-2) 1.15 (<2.37) ng/mL CK-MB (CK-2) Rel Index 0.9 L (1.5-5.0) % Troponin I < 0.012 (0.01-0.034) ng/mL NT-Pro-B Natriuret Pep 32 (<125) pg/mL Total Protein 7.1 (6.3-8.2) g/dL Albumin 4.6 (3.5-5.0) g/dL Globulin 2.5 (1.7-4.1) g/dL Albumin/Globulin Ratio 1.8 (1.0-2.8) SARS-CoV-2 (PCR) (Negative) Discharge Plan Departure Patient Disposition: Admitted as Observation Clinical Impression: Asthma with exacerbation Qualifiers: Asthma severity: unspecified severity Asthma persistence: unspecified Qualified Code(s): J45.901 - Unspecified asthma with (acute) exacerbation Admit Date/Time: 08/25/20 13:41 Admit Provider: Momo Vuong <David Powers, - Last Filed: 08/25/20 17:25> Cosign ED Attending Cosignature Attestation: Dr Powers Co-Sign Statement: I was available for consultation during this patient's emergency department visit. This chart is signed by myself for administrative purposes only. I did not have direct contact with this patient during this visit. They were seen independently by the APC.
--- NOTE | 2020-08-25 10:30 | RT ---
Peak flow predicted 415 Peak flow pre treatment 400 Peak flow post treatment 400 Moderate WOB, complaining of feeling SOB, anterior/posterior bilateral clear diminished in the bases home Asthma medications as directed
[2020-08-25] MEDS: ALBUTEROL HFA MDI 60 PUFF/8 GM INHALER INH (10:32)
[2020-08-25 10:54] LABS: COVID19 -Nasal RAPID Negative (Negative)
--- NOTE | 2020-08-25 10:56 | DI.RAD.S_ITS ---
PROCEDURE: XR CHEST 2V INDICATIONS: sob, asthma TECHNIQUE: 2 views of the chest were acquired. COMPARISON: [facility], CR, XR CHEST 1 VIEW, 05/22/2019, 16:23. [facility], CR, XR CHEST 2V, 08/23/2020, 19:28. FINDINGS: Surgical changes and devices: None. Lungs and pleura: Lungs are clear without consolidation. No pleural effusions or pneumothorax. Mediastinum: Mediastinal contours are normal. Heart size is normal. Bones and chest wall: No suspicious bony abnormalities. Soft tissues appear unremarkable. IMPRESSION: 1. No acute cardiopulmonary disease. Dictated by: Juwan Louise M.D. on 08/25/2020 at 10:15 Approved by: Juwan Louise M.D. on 08/25/2020 at 10:17
[2020-08-25] MEDS: ALBUTEROL 2.5 MG/3 ML NEB (ADULT) INH ×2 (11:04→11:59)
[2020-08-25 11:26] LABS: Add Manual Diff / Slide Review NO; Basophils Absolute Auto 0 /uL (0-100); Basophils Percent Auto 0.3 % (0-2); Eosinophils Absolute Auto 0 /uL (0-450); Eosinophils Percent Auto 0.5 % (2-4); Hematocrit 39.2 % (36-46); Lymphocytes Absolute Auto 1300 /uL (1100-4500); Lymphocytes Percent Auto 13.5 % (25-40); Mean Corpuscular HGB Conc 33.2 % (30-36); Mean Corpuscular Hemoglobin 30.2 PG (26-34); Mean Corpuscular Volume 90.9 fL (80-100); Monocytes Absolute Auto 400 /uL (0-900); Neutrophils Absolute Auto 7900 /uL (1500-7000); Neutrophils Percent Auto 81.7 % (50-75); Platelet Count 225 X10^3/uL (150-400); Red Blood Cell Count 4.31 X10^6/uL (4.0-5.2); Red Cell Distribution Width 13.7 % (11.6-14.8); White Blood Cell Count 9.7 X10^3/uL (4.5-11.0)
[2020-08-25 11:30] LABS: HEMOLYSIS < 15 (0-50)
[2020-08-25 11:31] LABS: Prothrombin Time 11.6 SECONDS (10.1-12.7)
[2020-08-25 11:35] LABS: PTT Partial Thromboplastin Tim 25 SECONDS (26.4-36.2)
[2020-08-25 11:37] LABS: Alanine Aminotransferase 35 IU/L (<35); Albumin 4.6 g/dL (3.5-5.0); Albumin Globulin Ratio 1.8 (1.0-2.8); Alkaline Phosphatase 72 U/L (38-126); Aspartate Aminotransferase 28 IU/L (14-36); BUN Creatinine Ratio 27.4 (6-22); Bilirubin Total 0.4 mg/dL (0.2-1.3); Blood Urea Nitrogen 23 mg/dL (7-17); Calcium 9.5 mg/dL (8.4-10.2); Carbon Dioxide 25 mmol/L (22-32); Chloride 105 mmol/L (98-107); Creatine Kinase 128 U/L (30-135); Estimated Glomerular Filt Rate > 60.0 mL/min (>60); Globulin 2.5 g/dL (1.7-4.1); Glucose 139 mg/dL (80-110); Magnesium 2.2 mg/dL (1.6-2.3); Potassium 3.7 mmol/L (3.4-5.1); Sodium 137 mmol/L (137-145); Total Protein 7.1 g/dL (6.3-8.2)
[2020-08-25] MEDS: methylPREDNISolone 125 MG/2 ML VIAL IV (11:50)
[2020-08-25 11:59] LABS: NT-proBNP (BNP-Adult 18+) 32 pg/mL (<125); Troponin I < 0.012 ng/mL (0.01-0.034)
[2020-08-25] MEDS: MAGNESIUM SULFATE 2 GM/50 ML PIGGYBACK IV (12:23)
[2020-08-25 13:10] LABS: HCO3 ABG 23 mmol/L (22-26); Oxygen Saturation ABG 97 % (95-100); PO2 ABG 84 mmHg (80-100); TCO2 ABG 24 mmol/L (21-31); pH ABG 7.49 (7.35-7.45)
[2020-08-25 13:11] LABS: Fractionated Inspired Oxygen 21
[2020-08-25 13:12] LABS: PCO2 ABG 29.7 mmHg (35-45)
--- NOTE | 2020-08-25 13:55 | P.HP_ITS ---
History of Present Illness History of Present Illness Date Patient Seen: 08/25/20 Time Patient Seen: 12:30 Chief complaint: Asthma flare up Narrative: Mora Kim is a 65-year-old female with a past medical history of severe persistent asthma on Dexilant, HLD, hypothyroidism and anxiety/ depression who presented with worsening shortness of breath. She has been experiencing symptoms in total for the past 5 days with shortness of breath. She was initially seen in an urgent care and given an IM dose of steroids and sent home on a steroid taper with continued worsening of her symptoms. She then presented to the ER and was discharged home with a change in her inhalers from albuterol to levalbuterol. Since then she has had continued worsening of her symptoms and became very difficult to breathe even at rest today. She denies any overt fever, chills, lower extremity edema. She does prop herself up with pillows at night and feels worse with lying flat. She states this episode started with nasal congestion and a runny nose, she has had multiple negative COVID tests. She had a negative CT angiogram while here in the emergency department a couple of days ago. In the emergency room, patient's vital signs were notable for tachypnea in the upper 20s to low 30s at times and she appeared very uncomfortable despite continued nebulizer therapies. She was given a dose of magnesium with some improvement and a dose of 125 mg of Solu-Medrol. Initial laboratory evaluation was unremarkable with a negative troponin and negative proBNP. Full respiratory panel was positive for rhino virus, negative for COVID-19. The chest x-ray shows poor inspiratory volumes, no gross consolidations although there does appear to be possibly some mild congestion versus poor inspiratory volume. Patient was admitted under observation status for further treatment of acute asthma exacerbation. Patient History Medical History Anxiety Diabetes History of posttraumatic stress disorder (PTSD) Hypothyroid Major depressive disorder, recurrent severe without psychotic features Surgical History H/O dilation and curettage H/O hysterectomy with oophorectomy H/O left wrist surgery H/O sinus surgery History of left knee surgery Hx of breast biopsy S/P rotator cuff repair Family & Social History Safety & Behavioral: Feels Safe in Current Yes Environment Been Physically Hurt or No Threatened By a Person Tobacco & Substance use: Smoking Status Never smoker Substance Use Type does not use Meds Home Medications and Allergies Home Medications Medication Instructions Recorded Confirmed Type atorvastatin 10 mg tablet 20 mg PO BEDTIME 02/21/19 08/25/20 History levothyroxine 50 mcg capsule 50 mcg PO QAM cap 02/21/19 08/25/20 History aspirin 81 mg chewable tablet 81 mg PO DAILY 07/04/19 08/25/20 History dupilumab 300 mg/2 mL subcutaneous 300 mg SUBCUT Q2W 08/01/19 08/25/20 History syringe cholecalciferol (vitamin D3) 125 125 mcg PO DAILY 12/25/19 08/25/20 History mcg (5,000 unit) capsule duloxetine 60 mg capsule,delayed 60 mg PO BID #180 cap 05/05/20 08/25/20 Rx release trazodone 100 mg tablet 100 mg PO BEDTIME #90 tab 06/12/20 08/25/20 Rx levalbuterol HCl [Xopenex] 1.25 mg INHALATION Q4-6H PRN #75 ml 08/23/20 08/25/20 Rx levalbuterol tartrate [Xopenex HFA] 2 puff INHALATION Q4-6H PRN #15 g 08/24/20 08/25/20 Rx prednisolone acetate [Pred Forte] 1 drp EYE-RIGHT BID 08/25/20 08/25/20 History prednisone 40 mg PO DAILY 08/25/20 08/25/20 History venlafaxine [Effexor XR] 150 mg PO DAILY 08/25/20 08/25/20 History Allergies Allergy/AdvReac Type Severity Reaction Status Date / Time adhesive tape Allergy Severe rash Verified 08/23/20 19:06 pseudoephedrine Allergy Severe tachy Verified 08/23/20 19:06 [From Sudafed] Sulfa (Sulfonamide Allergy Severe hives Verified 08/23/20 19:06 Antibiotics) fluticasone Allergy Intermediate hives Verified 08/23/20 19:06 [From Advair Diskus] salmeterol Allergy Intermediate hives Verified 08/23/20 19:06 [From Advair Diskus] naproxen Allergy Mild hives Verified 08/23/20 19:06 erythromycin base AdvReac Intermediate vomiting Verified 08/23/20 19:06 albuterol AdvReac Mild Verified 08/23/20 19:06 Review of Systems Review of Systems Narrative: All other systems reviewed with the patient and are negative unless otherwise stated. Exam Vital Signs (past 8 hours): - 08/25/20 10:19 08/25/20 10:28 08/25/20 10:53 Temperature 98.9 F Pulse Rate 90 80 81 Respiratory Rate 16 26 H 29 H Blood Pressure 140/68 Pulse Oximetry 98 99 94 08/25/20 11:00 08/25/20 11:05 08/25/20 11:28 Temperature Pulse Rate 86 82 Respiratory Rate 36 H 26 H Blood Pressure 128/69 115/58 L Pulse Oximetry 94 98 93 08/25/20 11:29 08/25/20 11:30 08/25/20 11:52 Temperature 97.5 F L Pulse Rate 80 81 Respiratory Rate 26 H 23 Blood Pressure 117/55 L Pulse Oximetry 93 92 08/25/20 11:59 08/25/20 12:00 08/25/20 12:23 Temperature Pulse Rate 78 82 80 Respiratory Rate 24 14 28 H Blood Pressure 124/60 Pulse Oximetry 99 98 94 08/25/20 12:30 08/25/20 13:00 Temperature Pulse Rate 84 79 Respiratory Rate 23 32 H Blood Pressure 122/55 L 116/56 L Pulse Oximetry 93 95 Oxygen Delivery Method Room Air Narrative Exam Narrative: GENERAL APPEARANCE: Well developed, well nourished, appears uncomfortable speaking in 2-3 word sentences and is very short of breath. SKIN: Inspection of the skin reveals no rashes, ulcerations or petechiae. HEENT: Normocephalic atraumatic, extraocular muscles are intact, oropharynx is clear and mucous membranes are moist, neck is supple without adenopathy NECK: Supple and symmetric. There was no thyroid enlargement, and no tenderness, or masses were felt. CHEST: Normal AP diameter and normal contour without any kyphoscoliosis. LUNGS: Auscultation of the lungs diffuse inspiratory and expiratory wheezing, although poor air flow and diminished breath sounds throughout. CARDIOVASCULAR: There was a regular rate and rhythm without any murmurs, gallops, rubs. Peripheral pulses were 2+ and symmetric. ABDOMEN: Soft and nontender with normal bowel sounds. No ascites was noted. MUSCULOSKELETAL: There was no tenderness or effusions noted. Muscle strength and tone were normal. EXTREMITIES: No cyanosis, clubbing or edema. NEUROLOGIC: Alert and oriented x 3. Normal affect. Strength is +5/5 in the Upper Extremities and Lower Extremities Bilaterally. Objective ECG Impression: NSR. Unremarkable EKG. Imaging Chest x-ray: My impression: The chest x-ray shows poor inspiratory volumes, no gross consolidations although there does appear to be possibly some mild congestion versus poor inspiratory volume. Radiologist's impression: PROCEDURE: XR CHEST 2V INDICATIONS: sob, asthma TECHNIQUE: 2 views of the chest were acquired. COMPARISON: [facility], CR, XR CHEST 1 VIEW, 05/22/2019, 16:23. [facility], CR, XR CHEST 2V, 08/23/2020, 19:28. FINDINGS: Surgical changes and devices: None. Lungs and pleura: Lungs are clear without consolidation. No pleural effusions or pneumothorax. Mediastinum: Mediastinal contours are normal. Heart size is normal. Bones and chest wall: No suspicious bony abnormalities. Soft tissues appear unremarkable. IMPRESSION: 1. No acute cardiopulmonary disease. Labs Result Diagrams: 08/25/20 11:16 08/25/20 11:16 Labs: Laboratory Results - last 24 hr 08/25/20 08/25/20 08/25/20 10:17 11:16 11:16 WBC 9.7 RBC 4.31 Hgb 13.0 Hct 39.2 MCV 90.9 MCH 30.2 MCHC 33.2 RDW 13.7 Plt Count 225 Neut % (Auto) 81.7 H Lymph % (Auto) 13.5 L [place] % (Auto) 4.0 Eos % (Auto) 0.5 L Baso % (Auto) 0.3 Neut # (Auto) 7900 H Lymph # (Auto) 1300 [place] # (Auto) 400 Eos # (Auto) 0 Baso # (Auto) 0 PT 11.6 INR 1.0 APTT 25 L ABG pH ABG pCO2 ABG pO2 ABG HCO3 ABG Total CO2 ABG O2 Saturation ABG Base Excess FiO2 Sodium Potassium Chloride Carbon Dioxide BUN Creatinine Estimated GFR BUN/Creatinine Ratio Glucose Calcium Magnesium Total Bilirubin AST ALT Alkaline Phosphatase Total Creatine Kinase Troponin I NT-Pro-B Natriuret Pep Total Protein Albumin Globulin Albumin/Globulin Ratio SARS-CoV-2 (PCR) Negative 08/25/20 08/25/20 11:16 12:55 WBC RBC Hgb Hct MCV MCH MCHC RDW Plt Count Neut % (Auto) Lymph % (Auto) [place] % (Auto) Eos % (Auto) Baso % (Auto) Neut # (Auto) Lymph # (Auto) [place] # (Auto) Eos # (Auto) Baso # (Auto) PT INR APTT ABG pH 7.49 H ABG pCO2 29.7 L ABG pO2 84 ABG HCO3 23 ABG Total CO2 24 ABG O2 Saturation 97 ABG Base Excess 0.0 FiO2 21 Sodium 137 Potassium 3.7 Chloride 105 Carbon Dioxide 25 BUN 23 H Creatinine 0.84 Estimated GFR > 60.0 BUN/Creatinine Ratio 27.4 H Glucose 139 H Calcium 9.5 Magnesium 2.2 Total Bilirubin 0.4 AST 28 ALT 35 H Alkaline Phosphatase 72 Total Creatine Kinase 128 Troponin I < 0.012 NT-Pro-B Natriuret Pep 32 Total Protein 7.1 Albumin 4.6 Globulin 2.5 Albumin/Globulin Ratio 1.8 SARS-CoV-2 (PCR) Assessment & Plan Assessment & Plan narrative: Mora Kim is a 65-year-old female with a past medical history of severe persistent asthma on Dexilant, HLD, hypothyroidism and anxiety/ depression who presented with worsening shortness of breath. She is admitted under observation status for further treatment of acute asthma exacerbation. 1. Severe persistent asthma with acute exacerbation, present on admission - RT evaluation and treatment - continue methylprednisolone 60 q8 hours, given 125 mg in ER. - patient is on outpatient dexilant, continue home inhalers in addition to steroids. Likely brought on by rhinovirus infection. - given persistence of symptoms despite adequate outpatient therapy, and given obesity can mask elevated pro-BNP, along with questionable congestion based on my evaluation of her CXR and orthopnic symptoms will perform an echocardiogram to evaluate for possibility of heart failure or possible pulmonary HTN. 2. Rhinoviral infection, acute, present on admission - continue with above supportive therapies, no symptoms of nasal congestion at this time. 3. HLD - continue home statin 4. Hypothyroidism, chronic - continue home levothyroxine. Will check TSH in AM. 5. Depression/anxiety - sees Dr. Sánchez of psychiatry, patient appears slightly anxious but reasonable given trouble breathing. No SI or HI. Continue home medications. 6. Elevated BP without a diagnosis of hypertension. - possibly related to steroid therapy, anxiety. Will continue to monitor. Code: full as discussed with the patient. Dispo: Admit under observation status. DVT: lovenox daily.
[2020-08-25 15:14] LABS: CKMB % Relative Index 0.9 % (1.5-5.0); Creatine Kinase MB 1.15 ng/mL (<2.37)
[2020-08-25 15:36] LABS: Adenovirus Not Detected (Not Detect); B. parapertussis Not Detected (Not Detecte); Bordetella pertussis Not Detected (Not Detecte); Chlamydophila pneumoniae Not Detected (Not Detect); Coronavirus 229E Not Detected (Not Detect); Coronavirus HKU1 Not Detected (Not Detect); Coronavirus NL 63 Not Detected (Not Detect); Coronavirus OC43 Not Detected (Not Detect); Human Metapneumovirus Not Detected (Not Detect); Human Rhinovirus/Enterovirus Detected (Not Detect); Influenza A Not Detected (Not Detect); Influenza B Not Detected (Not Detect); Mycoplasma pneumoniae Not Detected (Not Detect); Parainfluenza Virus 1 Not Detected (Not Detect); Parainfluenza Virus 2 Not Detected (Not Detect); Parainfluenza Virus 3 Not Detected (Not Detect); Parainfluenza Virus 4 Not Detected (Not Detect); Respiratory Syncytial Virus Not Detected (Not Detect); SARS- CoV-2 Not Detected (Not Detecte)
[2020-08-25] MEDS: ACETAMINOPHEN 325 MG TABLET 650 MG PO (17:18)
--- NOTE | 2020-08-25 18:13 | DI.ECHO.S_ITS ---
[place] [facility]---------+ [facility] +---------+ : : [address] : : : : [id number] : : : : Phone: [phone]+ Echocardiogram Report + + :Name: AMEYA BLANCO Study Date: 08/26/2020 Height: 65 in : :[facility] ReadingLocation: Weight: 235 lb : : Gender: Female BSA: 2.1 m2 : :: 1955 Age: 65 yrs BP: 124/57 mmHg: :Reason For Study: SHORTNESS OF BREATH, EVALUATE FOR HEART : :FAILURE : :Ordering Physician: GORDY, : :CLAYTON JOSEPH Performed By: Laney Concepcion : :Referring: CLAYTON KAMINSKI : + + Interpretation Summary 1) Normal left ventricular thickness, size, and systolic function (EF 60-65%). 2) There are no obvious focal wall motion abnormalities noted but poor endocardial definition reduces the sensitivity for the detection of such. 3) Grossly, normal right ventricular size and function. 4) No significant valvular abnormalities. 5) No prior Echo available for comparison. Procedure: A two-dimensional transthoracic echocardiogram with color flow and Doppler was performed. The study quality was technically adequate. There is no prior echocardiogram noted for this patient. The patient was in sinus rhythm with heart rates between 73-87 bpm during the exam. Left Ventricle: The left ventricle is normal in size. There is normal left ventricular wall thickness. The ejection fraction is estimated to be 60-65%. Left ventricular systolic function is normal. There are no obvious focal wall motion abnormalities noted but poor endocardial definition reduces the sensitivity for the detection of such. Diastolic parameters suggest a relaxation abnormality of the left ventricle, consistent with probable normal filling pressures. Right Ventricle: The right ventricle is not well visualized. The right ventricle visually is grossly normal size. The right ventricular systolic function is normal. Atria: The left atrium is mildly dilated. Right atrial size is normal. There is no Doppler evidence for an interatrial shunt. Mitral Valve: The mitral valve leaflets appear mildly thickened, but open well. There is trace mitral regurgitation. Aortic Valve: The aortic valve is trileaflet. The aortic valve opens well. There is no aortic valve stenosis. There is trace aortic regurgitation. Tricuspid Valve: The tricuspid valve is normal in structure and function. There is trace tricuspid regurgitation. Pulmonary artery pressures cannot be estimated because of the lack of a measurable TR jet velocity but the IVC suggests a CVP of around 3 mmHg. Pulmonic Valve: The pulmonic valve leaflets are thin and pliable; valve motion is normal. There is trace pulmonic regurgitation. Great Vessels: The aortic root is normal size. The dimensions of the ascending aorta are normal. The IVC is of normal diameter and collapses greater than 50% with a sniff. This suggests a low right atrial pressure of 3 mm Hg. Pericardium/ Pleura There is no pericardial effusion. There is no pleural effusion. MMode/2D Measurements & Calculations LVIDd: 4.6 cm LVOT diam: 2.0 cm LVIDs: 2.8 cm Ao root diam: 3.1 cm FS: 39.1 % asc Aorta Diam: 3.1 cm EPSS: 0.37 cm Ao Arch Diam (Prox Trans): 3.0 cm IVSd: 1.1 cm LVPWd: 0.86 cm LV moses. diameter/BSA (cm/m^2): 2.2 LV sys. diameter/BSA (cm/m^2): 1.3 LA A2 area: 24.8 cm2 RA long axis: 5.5 cm LA A4 area: 19.8 cm2 RA area: 16.5 cm2 LA length (vol): 5.6 cm RA vol: 41.7 ml LA vol: 74.9 ml RA : 19.7 ml/m2 LA vol index: 35.4 ml/m2 IVC diam: 1.6 cm TAPSE: 2.6 cm Doppler Measurements & Calculations Ao V2 max: 163.6 cm/sec LVOT Max Shukri: 142.7 cm/sec Ao V2 mean: 113.4 cm/sec LV V1 max P.1 mmHg Ao max P.7 mmHg LV V1 VTI: 27.8 cm Ao mean P.8 mmHg JULISA(I,D): 2.7 cm2 Ao V2 VTI: 33.7 cm JULISA(V,D): 2.8 cm2 sev ratio: 0.83 JULISA indexed to BSA (cm^2/m^2): 1.3 MV E max shukri: 99.0 cm/sec PA V2 max: 81.5 cm/sec MV A max shukri: 126.8 cm/sec PA V2 mean: 55.6 cm/sec MV E/A: 0.78 PA mean P.4 mmHg Med Peak E' Shukri: 8.6 cm/sec PA pr(Accel): 24.2 mmHg E/E' med: 11.5 Lat Peak E' Shukri: 8.6 cm/sec E/E' lat: 11.5 E/e' average: 11.5 MV dec time: 0.18 sec MVA(VTI): 2.4 cm2 MV V2 mean: 97.5 cm/sec SV(LVOT): 90.1 ml MV mean P.3 mmHg MV V2 VTI: 37.0 cm Reading Physician:01:00 PM
[2020-08-25] MEDS: ALBUTEROL/IPRATROPIUM 3 ML AMPUL INH (19:15)
[2020-08-25] MEDS: methylPREDNISolone 125 MG/2 ML VIAL 60 MG IV (19:45)
[2020-08-25] MEDS: prednisoLONE OPHTH SUSP 1 DROPS EYE-RIGHT (20:45)
[2020-08-25] MEDS: ATORVASTATIN 20 MG TABLET PO (20:46)
[2020-08-25] MEDS: TRAZODONE 100 MG TABLET PO (20:46)
[2020-08-25] MEDS: SODIUM CHLORIDE 0.9% FLUSH 10 ML IV (20:46)
[2020-08-25] MEDS: DULOXETINE 30 MG CAPSULE 60 MG PO (20:46)
--- NOTE | 2020-08-25 22:17 | PC.NURSE ---
Evening Shift Note- Patient alert and oriented and able to make needs known to staff. Patient reports headache pain at 4/10 durinbg assessment. PRN tylenol given as ordered per patient request. Patient tolerated with no s/s of ASE noted. No complaints of N/V. Respirations labored at rest and with exertion. Patient sating 95-97% on room air. Lung sounds clear and diminished throughout. Safety measures in place. Patient agrees to call for assistance as needed. Call fung and phone within reach. Will continue to monitor.
[2020-08-26] VITALS (10 sets, daily range): BP systolic 120–129; BP diastolic 56–74; PULSE 72–83; RESP 17–28; TEMP 36.3–36.8; O2SAT 95–100
[2020-08-26] MEDS: ALBUTEROL 2.5 MG/3 ML NEB (ADULT) INH ×3 (00:11→16:46)
--- NOTE | 2020-08-26 01:26 | PC.NURSE ---
Addendum entered by Rosa Perez R.N. 08/26/20 03:51: Up to BSC with SBA and did not become SOB like she had earlier. Now back in bed. Original Note: 0028: upon arrival to room found patient in bed and very SOB with RR of 28. Unable to speak in complete sentences but indicates she gets SOB when getting up to bathroom. RA sat 98% and breath sounds CTA. Notified RT who came and gave neb Rx after which patient improved but still exhibiting some SOB so placed on oxygen at 2L/min. Has intermittent non productive cough. Is on continuous oximetry. HRR w/telemetry reading of SR 1st degree AVB. Denies nausea. BT present and abdomen is soft. Denies dysuria, frequency or urgency with urination. Has been independent with mobility but due to SOB will have patient use BSC tonight. She states she is feeling weaker so instructed to call for staff assist when getting out of bed and patient verbalizes understanding. Noted puffiness in bilateral ankles. Placed on droplet isolation as respiratory panel done yesterday is positive for rhinovirus; patient informed and verbalizes understanding. Denies pain. Fall risk score is moderate.
[2020-08-26] MEDS: methylPREDNISolone 125 MG/2 ML VIAL 60 MG IV ×3 (03:13→19:32)
[2020-08-26] MEDS: SODIUM CHLORIDE 0.9% FLUSH 10 ML IV ×3 (03:14→22:33)
[2020-08-26 05:30] LABS: Hematocrit 37.8 % (36-46); Hemoglobin 12.4 g/dL (12.0-16.0); Mean Corpuscular HGB Conc 32.8 % (30-36); Mean Corpuscular Hemoglobin 29.9 PG (26-34); Mean Corpuscular Volume 91.1 fL (80-100); Platelet Count 229 X10^3/uL (150-400); Red Blood Cell Count 4.15 X10^6/uL (4.0-5.2); Red Cell Distribution Width 14.1 % (11.6-14.8); White Blood Cell Count 15.5 X10^3/uL (4.5-11.0)
[2020-08-26 05:33] LABS: Add Manual Diff / Slide Review YES
[2020-08-26 05:38] LABS: Blood Urea Nitrogen 20 mg/dL (7-17); Calcium 8.8 mg/dL (8.4-10.2); Carbon Dioxide 25 mmol/L (22-32); Chloride 105 mmol/L (98-107); Estimated Glomerular Filt Rate > 60.0 mL/min (>60); Glucose 168 mg/dL (80-110); HEMOLYSIS < 15 (0-50); Magnesium 2.6 mg/dL (1.6-2.3); Potassium 4.7 mmol/L (3.4-5.1); Sodium 135 mmol/L (137-145)
[2020-08-26] MEDS: LEVOTHYROXINE 50 MCG TABLET PO (05:43)
[2020-08-26 06:05] LABS: Neutrophils Absolute Manual 14105 /uL (3000-5900); RBC Morphology Normal Morphology; Total Cells Counted 100
[2020-08-26 06:06] LABS: TSH w/ Reflex to FT4 0.21 uIU/mL (0.47-4.68)
[2020-08-26 06:32] LABS: Free T4, Direct Thyroxine 0.72 ng/dL (0.78-2.19)
[2020-08-26] MEDS: ALBUTEROL/IPRATROPIUM 3 ML AMPUL INH ×2 (07:28→20:05)
[2020-08-26] MEDS: prednisoLONE OPHTH SUSP 1 DROPS EYE-RIGHT (08:03)
[2020-08-26] MEDS: DULOXETINE 30 MG CAPSULE 60 MG PO ×2 (08:05→19:40)
[2020-08-26] MEDS: VENLAFAXINE ER 75 MG CAP 150 MG PO (08:05)
[2020-08-26] MEDS: CHOLECALCIFEROL (VITAMIN D3) 5,000 UNIT TABLET 5000 UNIT PO (08:05)
[2020-08-26] MEDS: ACETAMINOPHEN 325 MG TABLET 650 MG PO ×2 (08:05→13:58)
[2020-08-26] MEDS: ENOXAPARIN 40 MG/0.4 ML SYRINGE SUBCUT (08:06)
[2020-08-26] MEDS: KETOROLAC 10 MG TABLET PO ×2 (11:01→16:51)
--- NOTE | 2020-08-26 11:33 | CM.DANOTE ---
Addendum entered by Sarah Cisneros LPN 08/26/20 11:50: Of note: pt also follows with Dr. Sánchez [facility]ry [facility]. Original Note: Discharge Planning/Care Management DCP: assessment: Case received, EMR reviewed and went to room to meet with pt. Found her in midst of ECHO: BOUBACAR Manzanares noted that this would take about 30 more minutes. Due to caseload triage need will defer the rest of in person assessment to dcp team on for this afternoon or tomorrow. Pt is a 65 year old female who admitted yesterday to care of hospitalist team. PCP: listed as Tamia Cabral Payer: Lucie Titus Admission status: OBS with change to INPT: confirmed by UR BOUBACAR Echeverria. CM Discharge Assessment Start: 08/26/20 11:31 Freq: Status: Active Protocol: Document 08/26/20 11:31 ITV (Rec: 08/26/20 11:33 ITV [id number]) Discharge Planning Assessment Advance Directives? No Advance Directives on File No History Provided By Medical Record Prior Living Arrangements House Household Members spouse Is patient alert and oriented? Yes Review Status In Process
--- NOTE | 2020-08-26 12:20 | PM.PN.1 ---
Subjective Subjective Date Patient Seen: 08/26/20 Time Patient Seen: 09:15 Interval history: Mora Kim is a 65-year-old female with a past medical history of severe persistent asthma on Dexilant, HLD, hypothyroidism and anxiety/ depression who presented with worsening shortness of breath. She is admitted for presumed asthma exacerbation. She is more comfortable appearing today but still has 2-3 were dyspnea and remain short of breath. She has been on IV steroids. Leukocytosis increased today likely secondary to the steroids. Echocardiogram was performed but read is currently pending for further evaluation of her shortness of breath. She denies any fevers or chills overnight. She remains off of oxygen. Exam Vital Signs (past 8 hours): - 08/26/20 07:29 08/26/20 07:30 08/26/20 09:31 Temperature 97.8 F Pulse Rate 74 72 78 Respiratory Rate 18 21 22 Blood Pressure 120/60 Pulse Oximetry 96 97 100 Oxygen Delivery Method Room Air Oxygen Flow Rate 0 Narrative Exam Narrative: GENERAL APPEARANCE: Well developed, well nourished, appears more comfortable but still speaking in 2-3 word sentences and is very short of breath. SKIN: Inspection of the skin reveals no rashes, ulcerations or petechiae. HEENT: Normocephalic atraumatic, extraocular muscles are intact, oropharynx is clear and mucous membranes are moist, neck is supple without adenopathy NECK: Supple and symmetric. There was no thyroid enlargement, and no tenderness, or masses were felt. CHEST: Normal AP diameter and normal contour without any kyphoscoliosis. LUNGS: Diminished breath sounds bilaterally, no wheezing today, no rhonchi or rales. CARDIOVASCULAR: There was a regular rate and rhythm without any murmurs, gallops, rubs. Peripheral pulses were 2+ and symmetric. ABDOMEN: Soft and nontender with normal bowel sounds. No ascites was noted. MUSCULOSKELETAL: There was no tenderness or effusions noted. Muscle strength and tone were normal. EXTREMITIES: No cyanosis, clubbing or edema. NEUROLOGIC: Alert and oriented x 3. Normal affect. Strength is +5/5 in the Upper Extremities and Lower Extremities Bilaterally. Objective Labs Result Diagrams: 08/26/20 05:05 08/26/20 05:05 Labs: Laboratory Results - last 24 hr 08/25/20 08/25/20 08/25/20 11:16 12:55 13:45 WBC RBC Hgb Hct MCV MCH MCHC RDW Plt Count Neut % (Auto) Lymph % (Auto) [place] % (Auto) Eos % (Auto) Baso % (Auto) Lymph # (Auto) [place] # (Auto) Baso # (Auto) Total Counted Seg Neutrophils % Band Neutrophils % Lymphocytes % (Manual) Monocytes % (Manual) Neutrophils # (Manual) RBC Morphology ABG pH 7.49 H ABG pCO2 29.7 L ABG pO2 84 ABG HCO3 23 ABG Total CO2 24 ABG O2 Saturation 97 ABG Base Excess 0.0 FiO2 21 Sodium Potassium Chloride Carbon Dioxide BUN Creatinine Estimated GFR BUN/Creatinine Ratio Glucose Calcium Magnesium CK-MB (CK-2) 1.15 CK-MB (CK-2) Rel Index 0.9 L TSH Free T4 Chlamy pneumoniae PCR Cancelled Adenovirus (PCR) Cancelled B. pertussis DNA (PCR) B.parapertussis DNA PCR Cancelled Coronavirus OC43 (PCR) Cancelled Coronavirus HKU1 (PCR) Cancelled Coronavirus 229E (PCR) Cancelled SARS-CoV-2 (PCR) Cancelled Coronavirus NL63 (PCR) Cancelled Human Metapneumovir PCR Cancelled Influenza Type A (PCR) Cancelled Influenza Type B (PCR) Cancelled M. pneumoniae (PCR) Cancelled Parainfluenza 1 (PCR) Cancelled Parainfluenza 2 (PCR) Cancelled Parainfluenza 3 (PCR) Cancelled Parainfluenza 4 (PCR) Cancelled RSV (PCR) Cancelled Entero/Rhino (PCR) Cancelled 08/25/20 08/25/20 08/25/20 13:45 13:45 13:59 WBC RBC Hgb Hct MCV MCH MCHC RDW Plt Count Neut % (Auto) Lymph % (Auto) [place] % (Auto) Eos % (Auto) Baso % (Auto) Lymph # (Auto) [place] # (Auto) Baso # (Auto) Total Counted Seg Neutrophils % Band Neutrophils % Lymphocytes % (Manual) Monocytes % (Manual) Neutrophils # (Manual) RBC Morphology ABG pH ABG pCO2 ABG pO2 ABG HCO3 ABG Total CO2 ABG O2 Saturation ABG Base Excess FiO2 Sodium Potassium Chloride Carbon Dioxide BUN Creatinine Estimated GFR BUN/Creatinine Ratio Glucose Calcium Magnesium CK-MB (CK-2) CK-MB (CK-2) Rel Index TSH Free T4 Chlamy pneumoniae PCR Not detected Cancelled Adenovirus (PCR) Not detected Cancelled B. pertussis DNA (PCR) Not detected B.parapertussis DNA PCR Cancelled Not detected Cancelled Coronavirus OC43 (PCR) Not detected Cancelled Coronavirus HKU1 (PCR) Not detected Cancelled Coronavirus 229E (PCR) Not detected Cancelled SARS-CoV-2 (PCR) Not detected Cancelled Coronavirus NL63 (PCR) Not detected Cancelled Human Metapneumovir PCR Not detected Cancelled Influenza Type A (PCR) Not detected Cancelled Influenza Type B (PCR) Not detected Cancelled M. pneumoniae (PCR) Not detected Cancelled Parainfluenza 1 (PCR) Not detected Cancelled Parainfluenza 2 (PCR) Not detected Cancelled Parainfluenza 3 (PCR) Not detected Cancelled Parainfluenza 4 (PCR) Not detected Cancelled RSV (PCR) Not detected Cancelled Entero/Rhino (PCR) Detected H Cancelled 08/25/20 08/26/20 08/26/20 13:59 05:05 05:05 WBC 15.5 H D RBC 4.15 Hgb 12.4 Hct 37.8 MCV 91.1 MCH 29.9 MCHC 32.8 RDW 14.1 Plt Count 229 Neut % (Auto) Not Reportable Lymph % (Auto) Not Reportable [place] % (Auto) Not Reportable Eos % (Auto) Not Reportable Baso % (Auto) Not Reportable Lymph # (Auto) Not Reportable [place] # (Auto) Not Reportable Baso # (Auto) Not Reportable Total Counted 100 Seg Neutrophils % 88.0 H Band Neutrophils % 3.0 Lymphocytes % (Manual) 7.0 L Monocytes % (Manual) 2.0 Neutrophils # (Manual) 07424 H RBC Morphology Normal morphology ABG pH ABG pCO2 ABG pO2 ABG HCO3 ABG Total CO2 ABG O2 Saturation ABG Base Excess FiO2 Sodium 135 L Potassium 4.7 Chloride 105 Carbon Dioxide 25 BUN 20 H Creatinine 0.69 Estimated GFR > 60.0 BUN/Creatinine Ratio 29.0 H Glucose 168 H Calcium 8.8 Magnesium 2.6 H CK-MB (CK-2) CK-MB (CK-2) Rel Index TSH Free T4 Chlamy pneumoniae PCR Adenovirus (PCR) B. pertussis DNA (PCR) B.parapertussis DNA PCR Cancelled Coronavirus OC43 (PCR) Coronavirus HKU1 (PCR) Coronavirus 229E (PCR) SARS-CoV-2 (PCR) Coronavirus NL63 (PCR) Human Metapneumovir PCR Influenza Type A (PCR) Influenza Type B (PCR) M. pneumoniae (PCR) Parainfluenza 1 (PCR) Parainfluenza 2 (PCR) Parainfluenza 3 (PCR) Parainfluenza 4 (PCR) RSV (PCR) Entero/Rhino (PCR) 08/26/20 05:05 WBC RBC Hgb Hct MCV MCH MCHC RDW Plt Count Neut % (Auto) Lymph % (Auto) [place] % (Auto) Eos % (Auto) Baso % (Auto) Lymph # (Auto) [place] # (Auto) Baso # (Auto) Total Counted Seg Neutrophils % Band Neutrophils % Lymphocytes % (Manual) Monocytes % (Manual) Neutrophils # (Manual) RBC Morphology ABG pH ABG pCO2 ABG pO2 ABG HCO3 ABG Total CO2 ABG O2 Saturation ABG Base Excess FiO2 Sodium Potassium Chloride Carbon Dioxide BUN Creatinine Estimated GFR BUN/Creatinine Ratio Glucose Calcium Magnesium CK-MB (CK-2) CK-MB (CK-2) Rel Index TSH 0.21 L Free T4 0.72 L Chlamy pneumoniae PCR Adenovirus (PCR) B. pertussis DNA (PCR) B.parapertussis DNA PCR Coronavirus OC43 (PCR) Coronavirus HKU1 (PCR) Coronavirus 229E (PCR) SARS-CoV-2 (PCR) Coronavirus NL63 (PCR) Human Metapneumovir PCR Influenza Type A (PCR) Influenza Type B (PCR) M. pneumoniae (PCR) Parainfluenza 1 (PCR) Parainfluenza 2 (PCR) Parainfluenza 3 (PCR) Parainfluenza 4 (PCR) RSV (PCR) Entero/Rhino (PCR) [facility] Medical History Anxiety Diabetes History of posttraumatic stress disorder (PTSD) Hypothyroid Major depressive disorder, recurrent severe without psychotic features Surgical History H/O dilation and curettage H/O hysterectomy with oophorectomy H/O left wrist surgery H/O sinus surgery History of left knee surgery Hx of breast biopsy S/P rotator cuff repair Social History (Reviewed 08/25/20 @ 11:08 by Beatrice Sorto [facility]) household members: spouse Smoking Status: Never smoker alcohol intake: current Assessment & Plan Assessment & Plan narrative: Mora Kim is a 65-year-old female with a past medical history of severe persistent asthma on Dexilant, HLD, hypothyroidism and anxiety/ depression who presented with worsening shortness of breath. She is admitted under observation status for further treatment of acute asthma exacerbation. 1. Severe persistent asthma with acute exacerbation, present on admission - appreciate respiratory therapy consultation - continue methylprednisolone 60 q8 hours, given 125 mg in ER. - patient is on outpatient dexilant, continue home inhalers in addition to steroids. Likely brought on by rhinovirus infection. - given persistence of symptoms despite adequate outpatient therapy, and given obesity can mask elevated pro-BNP, along with questionable congestion based on my evaluation of her CXR and orthopnic symptoms ordered an echocardiogram, which was performed today however her final read is currently pending. 2. Rhinoviral infection, acute, present on admission - continue with above supportive therapies, no symptoms of nasal congestion at this time. 3. HLD - continue home statin 4. Hypothyroidism, chronic - continue home levothyroxine. TSH is low with a borderline low free T4. Recommend recheck given no overt symptoms once improved from her asthma exacerbation. 5. Depression/anxiety - sees Dr. Sánchez of psychiatry, patient appears slightly anxious but reasonable given trouble breathing. No SI or HI. Continue home medications. 6. Elevated BP without a diagnosis of hypertension, improved. - possibly related to steroid therapy, anxiety. Will continue to monitor, but her blood pressures have improved today. Code: full as discussed with the patient. Dispo: changed to inpatient, discharge home when dyspnea improves. DVT: lovenox daily. Quality VTE Deep Vein Thrombosis/Pulmonary Embolism Present on Admission: No
[2020-08-26] MEDS: TRAZODONE 100 MG TABLET PO (19:40)
[2020-08-26] MEDS: ATORVASTATIN 20 MG TABLET PO (19:40)
--- NOTE | 2020-08-26 22:59 | PC.NURSE ---
Report received, care assumed 1530. A&Ox4. SOB at rest, shallow breathing, but oxygen sats in high 90's on RA. Requests respiratory treatments for comfort. Becomes winded with activity; therefore, voids in BSC. C/o headache, resolved with Toradol. Using home CPAP when sleeping.
[2020-08-27] VITALS (10 sets, daily range): BP systolic 121–141; BP diastolic 62–90; PULSE 68–88; RESP 15–26; TEMP 36.5–37.1; O2SAT 96–100
[2020-08-27] MEDS: methylPREDNISolone 125 MG/2 ML VIAL 60 MG IV ×3 (03:08→20:39)
[2020-08-27] MEDS: KETOROLAC 10 MG TABLET PO ×3 (03:08→20:37)
[2020-08-27] MEDS: ALBUTEROL 2.5 MG/3 ML NEB (ADULT) INH ×2 (03:58→17:30)
[2020-08-27] MEDS: LEVOTHYROXINE 50 MCG TABLET PO (05:24)
[2020-08-27 06:29] LABS: Add Manual Diff / Slide Review NO; Basophils Absolute Auto 0 /uL (0-100); Basophils Percent Auto 0.1 % (0-2); Eosinophils Absolute Auto 0 /uL (0-450); Eosinophils Percent Auto 0.1 % (2-4); Hematocrit 37.8 % (36-46); Hemoglobin 12.4 g/dL (12.0-16.0); Lymphocytes Absolute Auto 1300 /uL (1100-4500); Lymphocytes Percent Auto 8.4 % (25-40); Mean Corpuscular HGB Conc 32.9 % (30-36); Mean Corpuscular Volume 91.1 fL (80-100); Monocytes Absolute Auto 600 /uL (0-900); Monocytes Percent Auto 4.1 % (3-14); Neutrophils Absolute Auto 13500 /uL (1500-7000); Neutrophils Percent Auto 87.3 % (50-75); Platelet Count 235 X10^3/uL (150-400); Red Blood Cell Count 4.15 X10^6/uL (4.0-5.2); White Blood Cell Count 15.4 X10^3/uL (4.5-11.0)
[2020-08-27 06:37] LABS: Blood Urea Nitrogen 27 mg/dL (7-17); Calcium 9.1 mg/dL (8.4-10.2); Carbon Dioxide 23 mmol/L (22-32); Chloride 104 mmol/L (98-107); Estimated Glomerular Filt Rate > 60.0 mL/min (>60); Glucose 217 mg/dL (80-110); HEMOLYSIS 16 (0-50); Magnesium 2.3 mg/dL (1.6-2.3); Potassium 4.4 mmol/L (3.4-5.1); Sodium 134 mmol/L (137-145)
[2020-08-27] MEDS: ALBUTEROL/IPRATROPIUM 3 ML AMPUL INH ×2 (07:42→20:42)
[2020-08-27] MEDS: prednisoLONE OPHTH SUSP 1 DROPS EYE-RIGHT (08:23)
[2020-08-27] MEDS: DULOXETINE 30 MG CAPSULE 60 MG PO ×2 (08:24→20:37)
[2020-08-27] MEDS: CHOLECALCIFEROL (VITAMIN D3) 5,000 UNIT TABLET 5000 UNIT PO (08:24)
[2020-08-27] MEDS: VENLAFAXINE ER 75 MG CAP 150 MG PO (08:24)
[2020-08-27] MEDS: ENOXAPARIN 40 MG/0.4 ML SYRINGE SUBCUT (08:25)
[2020-08-27] MEDS: ACETAMINOPHEN 325 MG TABLET 650 MG PO (08:25)
[2020-08-27] MEDS: SODIUM CHLORIDE 0.9% FLUSH 10 ML IV ×2 (08:25→20:39)
--- NOTE | 2020-08-27 10:18 | PC.NURSE ---
Assess- Patient is A&Ox3, her breath sounds are cdi, 98% RA, she does get sob with exertion. Given tylenol for discomfort and headache and this seems to have helped. She states that when she takes any kind of steroids that she gets bad headaches. Patient is do for iv steroid around 12, will medicate her with toradol prior. She is resting in bed now and tolerated her breakfast well.
[2020-08-27] MEDS: levoFLOXacin 750 MG/150 ML PIGGYBACK 100 MG IV (11:05)
--- NOTE | 2020-08-27 15:40 | CM.DPC ---
DCP Cont: Discussed patient during team rounds. Dr. Vuong indicated that patent is not yet medically ready for discharge, need to get Asthma under control, and may need antibiotics. Patient is not on oxygen. P: DCP to continue to follow. Plan is for home when stable, will be available for any resources if needed. Gricelda Danielson RN/[employer]
--- NOTE | 2020-08-27 16:36 | P.PN_ITS ---
Subjective Subjective Date Patient Seen: 08/27/20 Time Patient Seen: 10:30 Interval history: Mora Kim is a 65-year-old female with a past medical history of severe persistent asthma on Dexilant, HLD, hypothyroidism and anxiety/ depression who presented with worsening shortness of breath. She is admitted for presumed asthma exacerbation. She still has 2-3 were dyspnea and remain short of breath. She has been on IV steroids. Leukocytosis stable but increased cough and sputum production. Echocardiogram was performed and was unremarkable. She denies any fevers or chills overnight. She remains off of oxygen. Will start antibiotics given leukocytosis and increased sputum production today. Exam Vital Signs (past 8 hours): - 08/27/20 12:00 08/27/20 15:30 Temperature 98.7 F 97.7 F Pulse Rate 74 68 Respiratory Rate 18 26 H Blood Pressure 121/62 141/71 H Pulse Oximetry 98 97 Oxygen Delivery Method Room Air Oxygen Flow Rate 0 Narrative Exam Narrative: GENERAL APPEARANCE: Well developed, well nourished, appears more comfortable but still speaking in 2-3 word sentences and is very short of breath. SKIN: Inspection of the skin reveals no rashes, ulcerations or petechiae. HEENT: Normocephalic atraumatic, extraocular muscles are intact, oropharynx is clear and mucous membranes are moist, neck is supple without adenopathy NECK: Supple and symmetric. There was no thyroid enlargement, and no tenderness, or masses were felt. CHEST: Normal AP diameter and normal contour without any kyphoscoliosis. LUNGS: Diminished breath sounds bilaterally, no wheezing today, no rhonchi or rales. CARDIOVASCULAR: There was a regular rate and rhythm without any murmurs, gallops, rubs. Peripheral pulses were 2+ and symmetric. ABDOMEN: Soft and nontender with normal bowel sounds. No ascites was noted. MUSCULOSKELETAL: There was no tenderness or effusions noted. Muscle strength and tone were normal. EXTREMITIES: No cyanosis, clubbing or edema. NEUROLOGIC: Alert and oriented x 3. Normal affect. Strength is +5/5 in the Upper Extremities and Lower Extremities Bilaterally. Objective Labs Result Diagrams: 08/27/20 05:53 08/27/20 05:53 Labs: Laboratory Results - last 24 hr 08/27/20 08/27/20 05:53 05:53 WBC 15.4 H RBC 4.15 Hgb 12.4 Hct 37.8 MCV 91.1 MCH 30.0 MCHC 32.9 RDW 14.0 Plt Count 235 Neut % (Auto) 87.3 H Lymph % (Auto) 8.4 L [place] % (Auto) 4.1 Eos % (Auto) 0.1 L Baso % (Auto) 0.1 Neut # (Auto) 78586 H Lymph # (Auto) 1300 [place] # (Auto) 600 Eos # (Auto) 0 Baso # (Auto) 0 Sodium 134 L Potassium 4.4 Chloride 104 Carbon Dioxide 23 BUN 27 H Creatinine 0.71 Estimated GFR > 60.0 BUN/Creatinine Ratio 38.0 H Glucose 217 H Calcium 9.1 Magnesium 2.3 PFSH Medical History Anxiety Diabetes History of posttraumatic stress disorder (PTSD) Hypothyroid Major depressive disorder, recurrent severe without psychotic features Surgical History H/O dilation and curettage H/O hysterectomy with oophorectomy H/O left wrist surgery H/O sinus surgery History of left knee surgery Hx of breast biopsy S/P rotator cuff repair Social History household members: spouse Smoking Status: Never smoker alcohol intake: current Assessment & Plan Assessment & Plan narrative: Mora Kim is a 65-year-old female with a past medical history of severe persistent asthma on Dexilant, HLD, hypothyroidism and anxiety/ depression who presented with worsening shortness of breath. She is admitted under observation status for further treatment of acute asthma exacerbation. 1. Severe persistent asthma with acute exacerbation, present on admission - appreciate respiratory therapy consultation - continue methylprednisolone 60 q8 hours, given 125 mg in ER. Given persistent leukocytosis, no significant improvement in symptoms, and increased sputum will add levaquin for possible pneumonia. Will repeat CXR. - patient is on outpatient dexilant, continue home inhalers in addition to steroids. Likely brought on by rhinovirus infection. - given persistence of symptoms despite adequate outpatient therapy, and given obesity can mask elevated pro-BNP, along with questionable congestion based on my evaluation of her CXR and orthopnic symptoms ordered an echocardiogram, which ultimately was unremarkable. 2. Rhinoviral infection, acute, present on admission - continue with above supportive therapies, no symptoms of nasal congestion at this time. 3. HLD - continue home statin 4. Hypothyroidism, chronic - continue home levothyroxine. TSH is low with a borderline low free T4. Recommend recheck given no overt symptoms once improved from her asthma exacerbation. 5. Depression/anxiety - sees Dr. Sánchez of psychiatry, patient appears slightly anxious but reasonable given trouble breathing. No SI or HI. Continue home medications. 6. Elevated BP without a diagnosis of hypertension, improved. - possibly related to steroid therapy, anxiety. Will continue to monitor. Code: full as discussed with the patient. Dispo: changed to inpatient, discharge home when dyspnea improves. DVT: lovenox daily. Quality VTE Deep Vein Thrombosis/Pulmonary Embolism Present on Admission: No
--- NOTE | 2020-08-27 16:40 | DI.RAD.S_ITS ---
PROCEDURE: XR CHEST 2V INDICATIONS: persistent dyspnea and increased cough/sputum TECHNIQUE: 2 views of the chest were acquired. COMPARISON: [facility], CR, XR CHEST 2V, 08/25/2020, 11:01. [facility], CR, XR CHEST 2V, 08/23/2020, 19:28. FINDINGS: Surgical changes and devices: None. Lungs and pleura: Lungs are clear. No pleural effusions or pneumothorax. Mediastinum: Mediastinal contours are normal. Heart size is normal. Bones and chest wall: No suspicious bony abnormalities. Soft tissues appear unremarkable. IMPRESSION: Reduced inspiratory volume, mild interstitial prominence, possible prior smoking history.. Dictated by: Raúl Chiu M.D. on 08/27/2020 at 17:14 Approved by: Raúl Chiu M.D. on 08/27/2020 at 17:15
--- NOTE | 2020-08-27 19:18 | PC.NURSE ---
Patient has been resting in bed most of the shift. Has been very short of breath w/any activity or coughing, patient got breathing tx after she got back from xray, which helped a little. Patient has denied having pain. Up to BSC w/ help from . Patient has been A&O, calm and cooperative.
[2020-08-27] MEDS: TRAZODONE 100 MG TABLET PO (20:37)
[2020-08-27] MEDS: ATORVASTATIN 20 MG TABLET PO (20:37)
[2020-08-28] VITALS (10 sets, daily range): BP systolic 124–138; BP diastolic 57–78; PULSE 65–78; RESP 16–24; TEMP 36.2–37.2; O2SAT 95–98
--- NOTE | 2020-08-28 03:15 | PC.NURSE ---
SADIE Lea notified with the CBG of 214, ordered to recheck her CBG. Will implement order & monitor.
[2020-08-28] MEDS: methylPREDNISolone 125 MG/2 ML VIAL 60 MG IV ×2 (03:53→12:49)
[2020-08-28] MEDS: KETOROLAC 10 MG TABLET PO ×2 (03:53→12:49)
[2020-08-28] MEDS: SODIUM CHLORIDE 0.9% FLUSH 10 ML IV ×3 (03:53→21:01)
[2020-08-28 06:01] LABS: Add Manual Diff / Slide Review NO; Basophils Absolute Auto 0 /uL (0-100); Basophils Percent Auto 0.1 % (0-2); Eosinophils Absolute Auto 0 /uL (0-450); Hematocrit 37.7 % (36-46); Hemoglobin 12.3 g/dL (12.0-16.0); Lymphocytes Absolute Auto 1800 /uL (1100-4500); Lymphocytes Percent Auto 10.7 % (25-40); Mean Corpuscular HGB Conc 32.7 % (30-36); Mean Corpuscular Hemoglobin 29.8 PG (26-34); Mean Corpuscular Volume 91.1 fL (80-100); Monocytes Absolute Auto 800 /uL (0-900); Monocytes Percent Auto 4.6 % (3-14); Neutrophils Absolute Auto 14400 /uL (1500-7000); Neutrophils Percent Auto 84.6 % (50-75); Platelet Count 248 X10^3/uL (150-400); Red Blood Cell Count 4.13 X10^6/uL (4.0-5.2)
[2020-08-28 06:05] LABS: BUN Creatinine Ratio 35.4 (6-22); Blood Urea Nitrogen 28 mg/dL (7-17); Calcium 8.9 mg/dL (8.4-10.2); Carbon Dioxide 24 mmol/L (22-32); Chloride 104 mmol/L (98-107); Estimated Glomerular Filt Rate > 60.0 mL/min (>60); Glucose 204 mg/dL (80-110); HEMOLYSIS < 15 (0-50); Magnesium 2.3 mg/dL (1.6-2.3); Potassium 4.8 mmol/L (3.4-5.1); Sodium 133 mmol/L (137-145)
[2020-08-28] MEDS: LEVOTHYROXINE 50 MCG TABLET PO (06:13)
--- NOTE | 2020-08-28 06:38 | PC.NURSE ---
Pt. reports feeling much better tis morning. Requested Toradol 10 mg. PO with Solumedrol, states I have to have Toradol otherwise I get MILLS with steroid. Denies any pain this morning. No C/O SOB & dyspnea with exertion, SPO2 in room air 97-98%. no cough noted. Will cont. POC & monitor.
[2020-08-28] MEDS: ALBUTEROL/IPRATROPIUM 3 ML AMPUL INH ×2 (07:54→20:34)
[2020-08-28] MEDS: ACETAMINOPHEN 325 MG TABLET 650 MG PO (07:57)
[2020-08-28] MEDS: VENLAFAXINE ER 75 MG CAP 150 MG PO (08:54)
[2020-08-28] MEDS: ENOXAPARIN 40 MG/0.4 ML SYRINGE SUBCUT (08:54)
[2020-08-28] MEDS: CHOLECALCIFEROL (VITAMIN D3) 5,000 UNIT TABLET 5000 UNIT PO (08:54)
[2020-08-28] MEDS: DULOXETINE 30 MG CAPSULE 60 MG PO ×2 (08:54→21:00)
[2020-08-28] MEDS: prednisoLONE OPHTH SUSP 1 DROPS EYE-RIGHT (08:57)
[2020-08-28] MEDS: levoFLOXacin 750 MG/150 ML PIGGYBACK 100 MG IV (09:01)
--- NOTE | 2020-08-28 09:07 | PC.NURSE ---
0900- A/O x4, Pt reports feeling much better this morning. reports diaphoretic last night and yesterday, currently skin is warm and dry. 100% RA, LS RLL and Posterior ronchi wheeze, Upper lobes better with faint wheeze to Up right, SOB while resting and more with exertion to BSC. Pt does report much easier to breathe than yesterday. BG-161, no intervention given. BT+ but reports constipation, DR aware and new orders for bowel protocol. Pt tired from eating breakfast and going to take a nap. Levo infusing to RAC, call light in reach.
--- NOTE | 2020-08-28 12:07 | PM.PN.1 ---
Subjective Subjective Date Patient Seen: 08/28/20 Time Patient Seen: 11:30 Interval history: Mora Kim is a 65-year-old female with a past medical history of severe persistent asthma on Dexilant, HLD, hypothyroidism and anxiety/ depression who presented with worsening shortness of breath. She is admitted for presumed asthma exacerbation. Dyspnea has improved today and she is still able to speak in longer sentences but still cannot ambulate to her bathroom without shortness of breath. Will start to taper steroids today. She was started on antibiotics yesterday as well. She denies fever, chills, abdominal pain, nausea, vomiting. No chest pain, orthopnea, LE edema. She states she is starting to feel improved today, the first time since her admission. Exam Vital Signs (past 8 hours): - 08/28/20 08:00 08/28/20 08:08 08/28/20 11:56 Temperature 97.9 F 98.9 F Pulse Rate 68 73 77 Respiratory Rate 16 16 16 Blood Pressure 124/73 131/61 Pulse Oximetry 98 97 97 Oxygen Delivery Method Room Air Oxygen Flow Rate 0 Narrative Exam Narrative: GENERAL APPEARANCE: Well developed, well nourished, appears more comfortable but still speaking in 2-3 word sentences and is very short of breath. SKIN: Inspection of the skin reveals no rashes, ulcerations or petechiae. HEENT: Normocephalic atraumatic, extraocular muscles are intact, oropharynx is clear and mucous membranes are moist, neck is supple without adenopathy NECK: Supple and symmetric. There was no thyroid enlargement, and no tenderness, or masses were felt. CHEST: Normal AP diameter and normal contour without any kyphoscoliosis. LUNGS: Diminished breath sounds bilaterally, no wheezing today, no rhonchi or rales. CARDIOVASCULAR: There was a regular rate and rhythm without any murmurs, gallops, rubs. Peripheral pulses were 2+ and symmetric. ABDOMEN: Soft and nontender with normal bowel sounds. No ascites was noted. MUSCULOSKELETAL: There was no tenderness or effusions noted. Muscle strength and tone were normal. EXTREMITIES: No cyanosis, clubbing or edema. NEUROLOGIC: Alert and oriented x 3. Normal affect. Strength is +5/5 in the Upper Extremities and Lower Extremities Bilaterally. Objective Labs Result Diagrams: 08/28/20 05:25 08/28/20 05:25 Labs: Laboratory Results - last 24 hr 08/28/20 08/28/20 05:25 05:25 WBC 17.0 H RBC 4.13 Hgb 12.3 Hct 37.7 MCV 91.1 MCH 29.8 MCHC 32.7 RDW 14.0 Plt Count 248 Neut % (Auto) 84.6 H Lymph % (Auto) 10.7 L [place] % (Auto) 4.6 Eos % (Auto) 0.0 L Baso % (Auto) 0.1 Neut # (Auto) 40817 H Lymph # (Auto) 1800 [place] # (Auto) 800 Eos # (Auto) 0 Baso # (Auto) 0 Sodium 133 L Potassium 4.8 Chloride 104 Carbon Dioxide 24 BUN 28 H Creatinine 0.79 Estimated GFR > 60.0 BUN/Creatinine Ratio 35.4 H Glucose 204 H Calcium 8.9 Magnesium 2.3 PFSH Medical History Anxiety Diabetes History of posttraumatic stress disorder (PTSD) Hypothyroid Major depressive disorder, recurrent severe without psychotic features Surgical History H/O dilation and curettage H/O hysterectomy with oophorectomy H/O left wrist surgery H/O sinus surgery History of left knee surgery Hx of breast biopsy S/P rotator cuff repair Social History household members: spouse Smoking Status: Never smoker alcohol intake: current Assessment & Plan Assessment & Plan narrative: Mora Kim is a 65-year-old female with a past medical history of severe persistent asthma on Dexilant, HLD, hypothyroidism and anxiety/ depression who presented with worsening shortness of breath. She is admitted under observation status for further treatment of acute asthma exacerbation. 1. Severe persistent asthma with acute exacerbation, present on admission - appreciate respiratory therapy consultation - continued methylprednisolone 60 q8 hours, given 125 mg in ER. Given persistent leukocytosis, no significant improvement in symptoms, and increased sputum added levaquin for possible pneumonia. Repeat CXR unremarkable. Will start to taper steroids today to q12 hours. Consider transition to oral steroids tomorrow. - patient is on outpatient dexilant, continue home inhalers in addition to steroids. Likely brought on by rhinovirus infection. - given persistence of symptoms despite adequate outpatient therapy, and given obesity can mask elevated pro-BNP, along with questionable congestion based on my evaluation of her CXR and orthopnic symptoms ordered an echocardiogram, which ultimately was unremarkable. 2. Rhinoviral infection, acute, present on admission - continue with above supportive therapies, no symptoms of nasal congestion at this time. 3. HLD - continue home statin 4. Hypothyroidism, chronic - continue home levothyroxine. TSH is low with a borderline low free T4. Recommend recheck given no overt symptoms once improved from her asthma exacerbation. 5. Depression/anxiety - sees Dr. Sánchez of psychiatry, patient appears slightly anxious but reasonable given trouble breathing. No SI or HI. Continue home medications. 6. Elevated BP without a diagnosis of hypertension, improved. - possibly related to steroid therapy, anxiety. Will continue to monitor. Code: full as discussed with the patient. Dispo: changed to inpatient, discharge home when dyspnea improves. DVT: lovenox daily. Quality VTE Deep Vein Thrombosis/Pulmonary Embolism Present on Admission: No
[2020-08-28] MEDS: DOCUSATE 100 MG CAPSULE PO ×2 (12:49→21:00)
[2020-08-28] MEDS: ALBUTEROL 2.5 MG/3 ML NEB (ADULT) INH ×2 (13:15→17:04)
[2020-08-28] MEDS: INSULIN ASPART 100 UNIT/ML INSULN PEN SUBCUT (16:46)
[2020-08-28] MEDS: TRAZODONE 100 MG TABLET PO (21:00)
[2020-08-28] MEDS: ATORVASTATIN 20 MG TABLET PO (21:00)
--- NOTE | 2020-08-28 22:34 | PC.NURSE ---
Assumed care of pt at 1500. Pt resting in bed during bedside hand-off report. Orientedx4. R. arm in sling. Aquacel C/D/I. Arm numb r/t surgical block. Radial pulse palpable. Denies pain. Bed alarm on. Pt verbalized she will call for needs. Pt up to BSC to void a few times this shift. Steady on feet, gait belt used for transfer. Tolerating diet. Denies nausea. Reports numbness is subsiding, now able to wiggle fingers. Medicating with Tylenol and ice pack applied for 3/10 post-op shoulder pain. Refused SCD's at approx 1800. VTE risks advised. Cooperative and pleasant with care this shift.
--- NOTE | 2020-08-28 23:09 | PC.NURSE ---
Assumed care of pt at 1500. Pt resting bed during bedside hand-off. Oriented x4. Denies pain. Noted SOB with rest during conversation and more SOB with activity. RA 96-98% Nebs PRN. Pt independent in room. Calling appropriately for needs. Droplet isolation remains in effect.
[2020-08-29] VITALS (9 sets, daily range): BP systolic 124–149; BP diastolic 56–76; PULSE 66–91; RESP 15–20; TEMP 36.2–37; O2SAT 95–99
[2020-08-29] MEDS: methylPREDNISolone 125 MG/2 ML VIAL 60 MG IV ×2 (00:03→12:59)
[2020-08-29] MEDS: SODIUM CHLORIDE 0.9% FLUSH 10 ML IV ×3 (00:03→20:30)
--- NOTE | 2020-08-29 01:00 | PC.NURSE ---
0012: patient is alert and oriented. Breath sounds CTA with RA sat of 99%; on continuous oximetry. Wearing CPAP at night. States she still experiences SOB when up to BSC but improved. Seems slightly SOB with conversation but is able to speak in complete sentences. Reports she is coughing up yellow/power sputum but none noted at this time. HRR w/BP of 134/71. Denies nausea. BT present and is passing flatus but has not had BM x 5days; started on Senna and Colace yesterday. Denies dysuria, frequency or urgency with urination; urine is light, clear yellow. Independent with mobility. Denies pain. Still has puffiness of bilateral ankles. Fall risk score is moderate but patient denies weakess/dizziness and is steady on feet. Remains on droplet precautions as was positive for rhinovirus.
[2020-08-29] MEDS: LEVOTHYROXINE 50 MCG TABLET PO (05:50)
[2020-08-29 06:40] LABS: Hematocrit 40.1 % (36-46); Mean Corpuscular HGB Conc 32.5 % (30-36); Mean Corpuscular Hemoglobin 29.6 PG (26-34); Platelet Count 261 X10^3/uL (150-400); Red Blood Cell Count 4.41 X10^6/uL (4.0-5.2); Red Cell Distribution Width 14.1 % (11.6-14.8); White Blood Cell Count 17.4 X10^3/uL (4.5-11.0)
[2020-08-29 06:45] LABS: Add Manual Diff / Slide Review YES
[2020-08-29 06:51] LABS: Alanine Aminotransferase 30 IU/L (<35); Albumin 4.2 g/dL (3.5-5.0); Albumin Globulin Ratio 1.6 (1.0-2.8); Alkaline Phosphatase 57 U/L (38-126); Aspartate Aminotransferase 23 IU/L (14-36); BUN Creatinine Ratio 28.8 (6-22); Bilirubin Total 0.6 mg/dL (0.2-1.3); Blood Urea Nitrogen 23 mg/dL (7-17); Calcium 8.9 mg/dL (8.4-10.2); Carbon Dioxide 24 mmol/L (22-32); Chloride 101 mmol/L (98-107); Estimated Glomerular Filt Rate > 60.0 mL/min (>60); Globulin 2.6 g/dL (1.7-4.1); Glucose 188 mg/dL (80-110); HEMOLYSIS < 15 (0-50); Potassium 4.7 mmol/L (3.4-5.1); Sodium 134 mmol/L (137-145); Total Protein 6.8 g/dL (6.3-8.2)
[2020-08-29 07:32] LABS: Neutrophils Absolute Manual 15138 /uL (3000-5900); Total Cells Counted 100
[2020-08-29 07:33] LABS: RBC Morphology Normal Morphology
[2020-08-29] MEDS: ALBUTEROL/IPRATROPIUM 3 ML AMPUL INH ×2 (07:47→19:07)
[2020-08-29] MEDS: prednisoLONE OPHTH SUSP 1 DROPS EYE-RIGHT (09:30)
[2020-08-29] MEDS: CHOLECALCIFEROL (VITAMIN D3) 5,000 UNIT TABLET 5000 UNIT PO (09:51)
[2020-08-29] MEDS: DOCUSATE 100 MG CAPSULE PO ×2 (09:51→20:29)
[2020-08-29] MEDS: ENOXAPARIN 40 MG/0.4 ML SYRINGE SUBCUT (09:51)
[2020-08-29] MEDS: DULOXETINE 30 MG CAPSULE 60 MG PO ×2 (09:51→20:29)
[2020-08-29] MEDS: VENLAFAXINE ER 75 MG CAP 150 MG PO (09:52)
[2020-08-29] MEDS: levoFLOXacin 750 MG/150 ML PIGGYBACK 100 MG IV (10:00)
[2020-08-29] MEDS: ALBUTEROL 2.5 MG/3 ML NEB (ADULT) INH (13:59)
--- NOTE | 2020-08-29 15:00 | P.PN_ITS ---
Subjective Subjective Interval history: Mora Kim is a 65-year-old female with a past medical history of severe persistent asthma on Dexilant, HLD, hypothyroidism and anxiety/ depression who presented with worsening shortness of breath. She is admitted for presumed asthma exacerbation. Dyspnea has improved and she is still able to speak in longer sentences but still cannot ambulate to her bathroom without shortness of breath.Steroids taper was started 08/28/2020. She was started on antibiotics . She denies fever, chills, abdominal pain, nausea, vomiting. No chest pain, orthopnea, LE edema. Exam Vital Signs (past 8 hours): - 08/29/20 08:00 08/29/20 11:56 08/29/20 13:59 Temperature 98.6 F 98.1 F Pulse Rate 74 79 76 Respiratory Rate 16 15 20 Blood Pressure 124/63 124/67 Pulse Oximetry 96 97 96 08/29/20 15:38 Temperature 98.5 F Pulse Rate 91 H Respiratory Rate 20 Blood Pressure 141/75 H Pulse Oximetry 95 Oxygen Delivery Method Room Air Oxygen Flow Rate 0 Narrative Exam Narrative: GENERAL APPEARANCE: Well developed, well nourished, appears more comfortable SKIN: Inspection of the skin reveals no rashes, ulcerations or petechiae. HEENT: Normocephalic atraumatic, extraocular muscles are intact, oropharynx is clear and mucous membranes are moist, neck is supple without adenopathy NECK: Supple and symmetric. There was no thyroid enlargement, and no tenderness, or masses were felt. CHEST: Normal AP diameter and normal contour without any kyphoscoliosis. LUNGS: Diminished breath sounds bilaterally, no wheezing, rhonchi or rales. CARDIOVASCULAR: There was a regular rate and rhythm without any murmurs, gallops, rubs. Peripheral pulses were 2+ and symmetric. ABDOMEN: Soft and nontender with normal bowel sounds. No ascites was noted. MUSCULOSKELETAL: There was no tenderness or effusions noted. Muscle strength and tone were normal. EXTREMITIES: No cyanosis, clubbing or edema. NEUROLOGIC: Alert and oriented x 3. Normal affect. Strength is +5/5 in the Upper Extremities and Lower Extremities Bilaterally. Objective Labs Result Diagrams: 08/29/20 06:05 08/29/20 06:05 Labs: Laboratory Results - last 24 hr 03/05/21 03/05/21 06:05 06:05 WBC 17.4 H RBC 4.41 Hgb 13.0 Hct 40.1 MCV 91.0 MCH 29.6 MCHC 32.5 RDW 14.1 Plt Count 261 Neut % (Auto) Not Reportable Lymph % (Auto) Not Reportable Hood % (Auto) Not Reportable Eos % (Auto) Not Reportable Baso % (Auto) Not Reportable Lymph # (Auto) Not Reportable Hood # (Auto) Not Reportable Baso # (Auto) Not Reportable Total Counted 100 Seg Neutrophils % 84.0 H Band Neutrophils % 3.0 Lymphocytes % (Manual) 10.0 L Monocytes % (Manual) 2.0 Eosinophils % (Manual) 1.0 L Neutrophils # (Manual) 85942 H RBC Morphology Normal morphology Sodium 134 L Potassium 4.7 Chloride 101 Carbon Dioxide 24 BUN 23 H Creatinine 0.80 Estimated GFR > 60.0 BUN/Creatinine Ratio 28.8 H Glucose 188 H Calcium 8.9 Total Bilirubin 0.6 AST 23 ALT 30 Alkaline Phosphatase 57 Total Protein 6.8 Albumin 4.2 Globulin 2.6 Albumin/Globulin Ratio 1.6 PFSH Medical History Anxiety Diabetes History of posttraumatic stress disorder (PTSD) Hypothyroid Major depressive disorder, recurrent severe without psychotic features Surgical History H/O dilation and curettage H/O hysterectomy with oophorectomy H/O left wrist surgery H/O sinus surgery History of left knee surgery Hx of breast biopsy S/P rotator cuff repair Social History household members: spouse Smoking Status: Never smoker alcohol intake: current Assessment & Plan Assessment & Plan narrative: Mora Kim is a 65-year-old female with a past medical history of severe persistent asthma on Dexilant, HLD, hypothyroidism and anxiety/ depression who presented with worsening shortness of breath. She is admitted under observation status for further treatment of acute asthma exacerbation. 1. Severe persistent asthma with acute exacerbation, present on admission Clinically improving. Patient is able to go from her bed to the bathroom without shortness of breath. She is able to speak longer before becoming short of breath. States that now she can talk up to 10-15 words at a time before shortness of breath. - appreciate respiratory therapy consultation - continued methylprednisolone 60 q12h hours, given 125 mg in ER. - patient is on outpatient dexilant, continue home inhalers in addition to steroids. Likely brought on by rhinovirus infection. - given persistence of symptoms despite adequate outpatient therapy, and given obesity can marked elevated pro-BNP, along with questionable congestion based on my evaluation of her CXR and orthopnic symptoms ordered an echocardiogram, which ultimately was unremarkable. 2. Rhinoviral infection, acute, present on admission - continue with above supportive therapies, no symptoms of nasal congestion at this time. 3. HLD - continue home statin 4. Hypothyroidism, chronic - continue home levothyroxine. TSH is low with a borderline low free T4. Recommend recheck given no overt symptoms once improved from her asthma exacerbation. 5. Depression/anxiety - sees Dr. Sánchez of psychiatry, patient appears slightly anxious but reasonable given trouble breathing. No SI or HI. Continue home medications. 6. Elevated BP without a diagnosis of hypertension, improved. - possibly related to steroid therapy, anxiety. Will continue to monitor. 7. Leukocytosis No evidence of active infection probably secondary to steroids Daily CBC Code: full as discussed with the patient. Dispo: changed to inpatient, discharge home when dyspnea improves. Quality VTE Deep Vein Thrombosis/Pulmonary Embolism Present on Admission: No
[2020-08-29] MEDS: TRAZODONE 100 MG TABLET PO (20:29)
[2020-08-29] MEDS: ATORVASTATIN 20 MG TABLET PO (20:30)
[2020-08-30] VITALS (10 sets, daily range): BP systolic 110–133; BP diastolic 57–96; PULSE 69–92; RESP 14–22; TEMP 36–37.1; O2SAT 97–100
[2020-08-30] MEDS: methylPREDNISolone 125 MG/2 ML VIAL 60 MG IV (00:11)
[2020-08-30] MEDS: SODIUM CHLORIDE 0.9% FLUSH 10 ML IV ×2 (00:11→09:14)
--- NOTE | 2020-08-30 02:12 | PC.NURSE ---
0020: patient is alert and oriented. Breath sounds CTA with RA sat of 99%. Reports less SOB with exertion and shorter recovery period. Also reports continued intermittent cough productive of small amounts power/yellow sputum. Continues to be monitored on continuous pulse oximetry. Is using home CPAP for sleep. HRR. BP 133/96. Denies nausea. BT present and abdomen is soft; had BM yesterday. Denies dysuria, frequency or urgency with urination. Is independent with mobility. Denies pain. Still with puffiness bilateral ankles. Remains on droplet precautions for rhinovirus. Fall risk score is moderate
[2020-08-30] MEDS: ALBUTEROL 2.5 MG/3 ML NEB (ADULT) INH ×2 (02:26→15:11)
[2020-08-30] MEDS: LEVOTHYROXINE 50 MCG TABLET PO (05:56)
[2020-08-30 06:24] LABS: Hematocrit 41.5 % (36-46); Hemoglobin 13.6 g/dL (12.0-16.0); Mean Corpuscular HGB Conc 32.8 % (30-36); Mean Corpuscular Hemoglobin 29.7 PG (26-34); Mean Corpuscular Volume 90.7 fL (80-100); Platelet Count 265 X10^3/uL (150-400); Red Blood Cell Count 4.58 X10^6/uL (4.0-5.2); Red Cell Distribution Width 13.9 % (11.6-14.8)
[2020-08-30 06:26] LABS: Add Manual Diff / Slide Review YES
[2020-08-30 06:27] LABS: Alanine Aminotransferase 36 IU/L (<35); Albumin 4.3 g/dL (3.5-5.0); Albumin Globulin Ratio 1.6 (1.0-2.8); Alkaline Phosphatase 60 U/L (38-126); Aspartate Aminotransferase 22 IU/L (14-36); BUN Creatinine Ratio 27.9 (6-22); Bilirubin Total 0.6 mg/dL (0.2-1.3); Blood Urea Nitrogen 24 mg/dL (7-17); Calcium 9.2 mg/dL (8.4-10.2); Carbon Dioxide 25 mmol/L (22-32); Chloride 99 mmol/L (98-107); Estimated Glomerular Filt Rate > 60.0 mL/min (>60); Globulin 2.7 g/dL (1.7-4.1); Glucose 213 mg/dL (80-110); HEMOLYSIS < 15 (0-50); Potassium 4.6 mmol/L (3.4-5.1); Sodium 133 mmol/L (137-145)
[2020-08-30 07:03] LABS: Neutrophils Absolute Manual 13280 /uL (3000-5900); RBC Morphology Normal Morphology; Total Cells Counted 100
[2020-08-30] MEDS: ALBUTEROL/IPRATROPIUM 3 ML AMPUL INH ×2 (08:37→20:41)
[2020-08-30] MEDS: prednisoLONE OPHTH SUSP 1 DROPS EYE-RIGHT (09:08)
[2020-08-30] MEDS: VENLAFAXINE ER 75 MG CAP 150 MG PO (09:13)
[2020-08-30] MEDS: DOCUSATE 100 MG CAPSULE PO (09:13)
[2020-08-30] MEDS: CHOLECALCIFEROL (VITAMIN D3) 5,000 UNIT TABLET 5000 UNIT PO (09:13)
[2020-08-30] MEDS: DULOXETINE 30 MG CAPSULE 60 MG PO ×2 (09:13→20:37)
[2020-08-30] MEDS: levoFLOXacin 250 MG TABLET 750 MG PO (09:13)
[2020-08-30] MEDS: ENOXAPARIN 40 MG/0.4 ML SYRINGE SUBCUT (09:13)
[2020-08-30] MEDS: predniSONE 20 MG TABLET 40 MG PO (12:23)
[2020-08-30] MEDS: ACETAMINOPHEN 325 MG TABLET 650 MG PO ×2 (13:24→20:37)
--- NOTE | 2020-08-30 13:27 | CM.DPC ---
DCP: continued: case received and discussed in Team Rounds. Pt remains on DROPLET precautions. Is up independently in the room. Dr. Urena states pt is improving and he anticipates d/c to home setting tomorrow. Will follow up prn.
--- NOTE | 2020-08-30 15:45 | P.PN_ITS ---
Subjective Subjective Date Patient Seen: 08/30/20 Time Patient Seen: 15:46 Interval history: Mora Kim is a 65-year-old female with a past medical history of severe persistent asthma on Dexilant, HLD, hypothyroidism and anxiety/ depression who presented with worsening shortness of breath. She is admitted for presumed asthma exacerbation. She states that her breathing is much better. She is able to walk to the bathroom without any significant difficulty. She was even able to take a shower without any increased shortness of breath She was started on antibiotics . She denies fever, chills, abdominal pain, nausea, vomiting. No chest pain, orthopnea, LE edema. Exam Vital Signs (past 8 hours): - 08/30/20 08:00 08/30/20 08:37 08/30/20 12:00 Temperature 98.7 F 98.7 F Pulse Rate 80 72 82 Respiratory Rate 19 20 20 Blood Pressure 110/70 113/71 Pulse Oximetry 97 97 98 08/30/20 15:11 Temperature Pulse Rate 92 H Respiratory Rate 20 Blood Pressure Pulse Oximetry 98 Oxygen Delivery Method Room Air Oxygen Flow Rate 0 Narrative Exam Narrative: GENERAL APPEARANCE: Well developed, well nourished, appears more comfortable SKIN: Inspection of the skin reveals no rashes, ulcerations or petechiae. HEENT: Normocephalic atraumatic, extraocular muscles are intact, oropharynx is clear and mucous membranes are moist, neck is supple without adenopathy NECK: Supple and symmetric. There was no thyroid enlargement, and no tenderness, or masses were felt. CHEST: Normal AP diameter and normal contour without any kyphoscoliosis. LUNGS: Clear to auscultation. There was no wheezes air entry was good. There was no rhonchi or rales. CARDIOVASCULAR: There was a regular rate and rhythm without any murmurs, gallops, rubs. Peripheral pulses were 2+ and symmetric. ABDOMEN: Soft and nontender with normal bowel sounds. No ascites was noted. MUSCULOSKELETAL: There was no tenderness or effusions noted. Muscle strength and tone were normal. EXTREMITIES: No cyanosis, clubbing or edema. NEUROLOGIC: Alert and oriented x 3. Normal affect. Strength is +5/5 in the Upper Extremities and Lower Extremities Bilaterally. Objective Labs Result Diagrams: 08/30/20 05:44 08/30/20 05:44 Labs: Laboratory Results - last 24 hr 08/30/20 08/30/20 05:44 05:44 WBC 16.0 H RBC 4.58 Hgb 13.6 Hct 41.5 MCV 90.7 MCH 29.7 MCHC 32.8 RDW 13.9 Plt Count 265 Neut % (Auto) Not Reportable Lymph % (Auto) Not Reportable [place]s % (Auto) Not Reportable Eos % (Auto) Not Reportable Baso % (Auto) Not Reportable Lymph # (Auto) Not Reportable [place]s # (Auto) Not Reportable Baso # (Auto) Not Reportable Total Counted 100 Seg Neutrophils % 82.0 H Band Neutrophils % 1.0 L Lymphocytes % (Manual) 4.0 L Atypical Lymphs % 8.0 H Monocytes % (Manual) 5.0 Neutrophils # (Manual) 62552 H RBC Morphology Normal morphology Sodium 133 L Potassium 4.6 Chloride 99 Carbon Dioxide 25 BUN 24 H Creatinine 0.86 Estimated GFR > 60.0 BUN/Creatinine Ratio 27.9 H Glucose 213 H Calcium 9.2 Total Bilirubin 0.6 AST 22 ALT 36 H Alkaline Phosphatase 60 Total Protein 7.0 Albumin 4.3 Globulin 2.7 Albumin/Globulin Ratio 1.6 PFSH Medical History Anxiety Diabetes History of posttraumatic stress disorder (PTSD) Hypothyroid Major depressive disorder, recurrent severe without psychotic features Surgical History H/O dilation and curettage H/O hysterectomy with oophorectomy H/O left wrist surgery H/O sinus surgery History of left knee surgery Hx of breast biopsy S/P rotator cuff repair Social History (Reviewed 08/25/20 @ 11:08 by Beatrice Sorto [facility] household members: spouse Smoking Status: Never smoker alcohol intake: current Assessment & Plan Assessment & Plan narrative: Mora Kim is a 65-year-old female with a past medical history of severe persistent asthma on Dexilant, HLD, hypothyroidism and anxiety/ depression who presented with worsening shortness of breath. She is admitted under observation status for further treatment of acute asthma exacerbation. 1. Severe persistent asthma with acute exacerbation, present on admission Improving as mentioned in subjective above -will change methylprednisolone 60 q12h hours to prednisone 40 mg daily. - patient is on outpatient dexilant, continue home inhalers in addition to steroids. Likely brought on by rhinovirus infection. - given persistence of symptoms despite adequate outpatient therapy, and given obesity can marked elevated pro-BNP, along with questionable congestion based on evaluation of her CXR and orthopnic symptoms ordered an echocardiogram, which ultimately was unremarkable. 2. Rhinoviral infection, acute, present on admission - continue with above supportive therapies, no symptoms of nasal congestion at this time. 3. HLD - continue home statin 4. Hypothyroidism, chronic - continue home levothyroxine. TSH is low with a borderline low free T4. Recommend recheck given no overt symptoms once improved from her asthma exacerbation. 5. Depression/anxiety - sees Dr. Sánchez of psychiatry, patient appears slightly anxious but reasonable given trouble breathing. No SI or HI. Continue home medications. 6. Elevated BP without a diagnosis of hypertension, improved. - possibly related to steroid therapy, anxiety. -resolved with improvement of her pulmonary process.. 7. Leukocytosis No evidence of active infection probably secondary to steroids. WBC remains L ablated but slightly lower than yesterday Daily CBC Code: full as discussed with the patient. Dispo: changed to inpatient, discharge home when dyspnea improves. Quality VTE Deep Vein Thrombosis/Pulmonary Embolism Present on Admission: No
[2020-08-30] MEDS: TRAZODONE 100 MG TABLET PO (20:37)
[2020-08-30] MEDS: ATORVASTATIN 20 MG TABLET PO (20:38)
[2020-08-31] VITALS (7 sets, daily range): BP systolic 110–132; BP diastolic 63–77; PULSE 66–93; RESP 12–20; TEMP 35.9–36.7; O2SAT 96–99
--- NOTE | 2020-08-31 00:53 | PC.NURSE ---
Addendum entered by Rosa Perez R.N. 08/31/20 05:06: 0400 patient complains of neck pain so medicated with Tylenol. Also complains of some tenderness on medial aspect of right lower leg just below patella and small pea size lump palpated. Venu NOEL, informed and saw patient and ordered US for this morning stating could wait until day shift. Patient instructed not to cross legs and to notify RN if increased pain or SOB; verbalizes understanding. Original Note: 0018: patient is alert and oriented. Breath sounds CTA with RA sat of 99% and remains on continuous oximetry. Reports still SOB with exertion but markedly improved and feels ready to discharge home. HRR. BP improved but still elevated at 132/68. Denies nausea. BT present and abdomen is soft. Denies dysuria, frequency or urgency with urination; patient removed measuring hat from toilet and states she no longer wants urine measured and has been voiding good amounts. Is independent with mobility. Continues to have puffiness bilateral ankles but is unchanged. Remains on droplet precautions for rhinovirus. Fall risk score is moderate but patient is steady and denies dizziness or weakness.
[2020-08-31] MEDS: ACETAMINOPHEN 325 MG TABLET 650 MG PO (03:56)
--- NOTE | 2020-08-31 04:19 | DI.US.S_ITS ---
PROCEDURE: US PERIPH VENOUS LOW EXTREM RT INDICATIONS: RIGHT CALF PAIN/WARM. HISTORY OF PULMONARY EMBOLISM. TECHNIQUE: Real-time imaging, as well as color and pulse Doppler interrogation, were performed of the lower extremity deep veins from the inguinal ligament to the popliteal fossa. COMPARISON: None. FINDINGS: The common femoral, femoral and popliteal veins are normally compressible, and free of intraluminal thrombus. Color and pulse Doppler demonstrate normal phasic intraluminal flow. There is normal augmentation response to distal compression maneuver. IMPRESSION: Negative right lower extremity duplex venous ultrasound for DVT. Dictated by: Aristides Malone M.D. on 08/31/2020 at 9:35 Approved by: Aristides Malone M.D. on 08/31/2020 at 9:35
[2020-08-31] MEDS: LEVOTHYROXINE 50 MCG TABLET PO (05:40)
[2020-08-31 06:23] LABS: Alanine Aminotransferase 33 IU/L (<35); Albumin Globulin Ratio 1.5 (1.0-2.8); Alkaline Phosphatase 55 U/L (38-126); Aspartate Aminotransferase 20 IU/L (14-36); Bilirubin Total 0.7 mg/dL (0.2-1.3); Blood Urea Nitrogen 22 mg/dL (7-17); Carbon Dioxide 27 mmol/L (22-32); Chloride 100 mmol/L (98-107); Estimated Glomerular Filt Rate > 60.0 mL/min (>60); Globulin 2.7 g/dL (1.7-4.1); Glucose 134 mg/dL (80-110); HEMOLYSIS < 15 (0-50); Potassium 4.2 mmol/L (3.4-5.1); Sodium 132 mmol/L (137-145); Total Protein 6.7 g/dL (6.3-8.2)
[2020-08-31 06:24] LABS: Add Manual Diff / Slide Review NO; Basophils Absolute Auto 0 /uL (0-100); Basophils Percent Auto 0.1 % (0-2); Eosinophils Absolute Auto 200 /uL (0-450); Eosinophils Percent Auto 1.4 % (2-4); Hematocrit 41.3 % (36-46); Hemoglobin 13.6 g/dL (12.0-16.0); Lymphocytes Absolute Auto 3900 /uL (1100-4500); Lymphocytes Percent Auto 23.1 % (25-40); Mean Corpuscular HGB Conc 32.9 % (30-36); Mean Corpuscular Hemoglobin 29.8 PG (26-34); Mean Corpuscular Volume 90.7 fL (80-100); Monocytes Absolute Auto 1300 /uL (0-900); Monocytes Percent Auto 7.9 % (3-14); Neutrophils Absolute Auto 11400 /uL (1500-7000); Neutrophils Percent Auto 67.5 % (50-75); Platelet Count 267 X10^3/uL (150-400); Red Blood Cell Count 4.56 X10^6/uL (4.0-5.2); Red Cell Distribution Width 14.2 % (11.6-14.8)
[2020-08-31] MEDS: ALBUTEROL/IPRATROPIUM 3 ML AMPUL INH (07:59)
[2020-08-31] MEDS: VENLAFAXINE ER 75 MG CAP 150 MG PO (08:50)
[2020-08-31] MEDS: CHOLECALCIFEROL (VITAMIN D3) 5,000 UNIT TABLET 5000 UNIT PO (08:50)
[2020-08-31] MEDS: DULOXETINE 30 MG CAPSULE 60 MG PO (08:51)
[2020-08-31] MEDS: DOCUSATE 100 MG CAPSULE PO (08:51)
[2020-08-31] MEDS: ENOXAPARIN 40 MG/0.4 ML SYRINGE SUBCUT (08:51)
[2020-08-31] MEDS: predniSONE 20 MG TABLET 40 MG PO (08:51)
[2020-08-31] MEDS: levoFLOXacin 250 MG TABLET 750 MG PO (08:51)
[2020-08-31] MEDS: prednisoLONE OPHTH SUSP 1 DROPS EYE-RIGHT (08:52)
--- NOTE | 2020-08-31 11:01 | PC.NURSE ---
Addendum entered by Jessy Leslie R.N. 08/31/20 14:26: Patients bs up to the 180s, she is anxious and thought that this would prolong her stay, explained to patient that she will be okay to go home around 1800 after dinner, we will take her blood sugar before and if needed she will get insulin. Addendum entered by Jessy Leslie R.N. 08/31/20 13:15: Patient called on her light and states that she felt really foggy. Took blood sugar again and 143, BP was 120s/60s and pulse 91. She seems to be a bit anxious, was on iv steroids and has transitioned to oral prednisone. Talked to Dr. Kiran and he would like patient to be discharged after dinner. We will take patients blood sugar again around 1400. is here now and is going to alert him of time of discharge. Sitting up in the chair now. Addendum entered by Jessy Leslie R.N. 08/31/20 12:09: Patients bs 66, eating lunch will recheck in one hour after she has eaten. Original Note: Assess- Patient is doing better this day. She is only slightly sob with exertion. States that she is feeling better. She is taking po steroids and on po antibiotics. Denies pain or discomfort. On RA. Patient had her ultrasound of her r. calf. Will look at results of this and talk to Doctor. She is most likely going to discharge home today.
--- NOTE | 2020-08-31 11:51 | PM.DS.1 ---
History of Present Illness History of Present Illness Date Patient Seen: 08/31/20 Chief complaint: Asthma flare up Narrative: Mora Kim is a 65-year-old female with a past medical history of severe persistent asthma on Dexilant, HLD, hypothyroidism and anxiety/ depression who presented with worsening shortness of breath. She is admitted for presumed asthma exacerbation. She states that her breathing is much better. She is able to walk to the bathroom without any significant difficulty. She was even able to take a shower without any increased shortness of breath. She denies fever, chills, abdominal pain, nausea, vomiting. No chest pain, orthopnea, LE edema. She had diffuse inspiratory and expiratory wheezes on day of admission. Chest x-ray and BMP were unremarkable. She was therefore admitted for further treatment of exacerbation of asthma Discharge Providers Provider Date of admission: 08/25/20 13:41 Discharge Date: 08/31/20 Primary care physician: Tamia Cabral PA-C Consults: 08/25/20 15:24 Consult to Respiratory Therapy Evaluate & Treat Comment: Physician Instructions: Evaluate and treat Discharge provider: Pablo Cuba MD Summary Hospital Course Discharge Diagnosis: 1. Asthma exacerbation 2. Rhinovirus infection 3. Hypertension resolved 3. Hypothyroid 4. Depression/anxiety 5. hyperlipidemia Hospital Course: 1. Severe persistent asthma with acute exacerbation She was placed on scheduled DuoNeb treatments and also albuterol 2.5 mg neb q.2 hours as needed. IV methylprednisolone was started on admission and changed to to prednisone 40 mg daily the day prior to discharge she was doing well. For 48 hours prior to discharge her pulmonary exam was unremarkable. Air entry was good. There was no wheezes rhonchi or rales. She had no nasal flaring no use of accessory muscles of respiration. She was able to ambulate without any increased shortness of breath. Is felt that her exacerbation was brought on by rhinovirus infection. Because of her pretty insistent symptoms and obesity echocardiogram was obtained to see if there was any problems with LV dysfunction or pulmonary hypertension. The echocardiogram revealed normal EF of 60-65% no focal wall motion abnormalities and normal right ventricular size and function. 2. Rhinoviral infection, acute, present on admission As part of her workup on admission she had a respiratory panel. It was positive for rhino virus. She was negative for COVID 19. She was placed on isolation because of her rhino viral infection. Supplemental O2 and treatment of her asthma was done. 3. RIGHT LOWER EXTREMITY DISCOMFORT On the day of discharge the patient complaining of right lower extremity discomfort. A potential cord was felt palpated by the c unix developer. Has result ultrasound study of that extremity was done to rule out DVT. No DVT was noted 4. Hypothyroidism, chronic She was maintained on her home levothyroxine. TSH is low with a borderline low free T4. Recommend recheck given no overt symptoms once improved from her asthma exacerbation. 5. Depression/anxiety She sees Dr. Sánchez of psychiatry. There were no SI or HI. She was maintained on her home med. She had no problems with situational depression during hospitalization because of her pulmonary problems nor was there any problems with anxiety.. 6. Elevated BP without a diagnosis of hypertension, improved. Possibly related to steroid therapy asthma exacerbation This resolved with resolution of her pulmonary process. In the 24 hours prior to discharge her blood pressures were 119/70 8-132/68 7. Leukocytosis No evidence of active infection probably secondary to margination secondary to her steroids. Follow-up of CBC all steroids as outpatient Status at Discharge Cognitive/behavioral status at discharge: oriented Functional status at discharge: independent ambulation Time Spent with Patient Time spent: Greater than 30 minutes Exam Vital Signs (past 8 hours): - 08/31/20 04:05 08/31/20 07:59 08/31/20 08:10 Temperature 96.7 F L 98.0 F Pulse Rate 66 82 77 Respiratory Rate 16 20 16 Blood Pressure 124/77 124/63 Pulse Oximetry 96 97 99 Oxygen Delivery Method Room Air Oxygen Flow Rate 0 Narrative Exam Narrative: GENERAL APPEARANCE: Well developed, well nourished, appears more comfortable SKIN: Inspection of the skin reveals no rashes, ulcerations or petechiae. HEENT: Normocephalic atraumatic, extraocular muscles are intact, oropharynx is clear and mucous membranes are moist, neck is supple without adenopathy NECK: Supple and symmetric. There was no thyroid enlargement, and no tenderness, or masses were felt. CHEST: Normal AP diameter and normal contour without any kyphoscoliosis. LUNGS: Clear to auscultation. There was no wheezes air entry was good. There was no rhonchi or rales. CARDIOVASCULAR: There was a regular rate and rhythm without any murmurs, gallops, rubs. Peripheral pulses were 2+ and symmetric. ABDOMEN: Soft and nontender with normal bowel sounds. No ascites was noted. MUSCULOSKELETAL: There was no tenderness or effusions noted. Muscle strength and tone were normal. EXTREMITIES: No cyanosis, clubbing or edema. NEUROLOGIC: Alert and oriented x 3. Normal affect. Strength is +5/5 in the Upper Extremities and Lower Extremities Bilaterally. Objective Labs Result Diagrams: 08/31/20 05:46 08/31/20 05:46 Labs: Laboratory Results - last 24 hr 08/31/20 08/31/20 05:46 05:46 WBC 17.0 H RBC 4.56 Hgb 13.6 Hct 41.3 MCV 90.7 MCH 29.8 MCHC 32.9 RDW 14.2 Plt Count 267 Neut % (Auto) 67.5 Lymph % (Auto) 23.1 L [place] % (Auto) 7.9 Eos % (Auto) 1.4 L Baso % (Auto) 0.1 Neut # (Auto) 09031 H Lymph # (Auto) 3900 [place] # (Auto) 1300 H Eos # (Auto) 200 Baso # (Auto) 0 Sodium 132 L Potassium 4.2 Chloride 100 Carbon Dioxide 27 BUN 22 H Creatinine 0.88 Estimated GFR > 60.0 BUN/Creatinine Ratio 25.0 H Glucose 134 H Calcium 9.0 Total Bilirubin 0.7 AST 20 ALT 33 Alkaline Phosphatase 55 Total Protein 6.7 Albumin 4.0 Globulin 2.7 Albumin/Globulin Ratio 1.5 ECHO Interpretation Summary 1) Normal left ventricular thickness, size, and systolic function (EF 60-65%). 2) There are no obvious focal wall motion abnormalities noted but poor endocardial definition reduces the sensitivity for the detection of such. 3) Grossly, normal right ventricular size and function. 4) No significant valvular abnormalities. 5) No prior Echo available for comparison. TWO-VIEW CHEST X-RAY IMPRESSION: 1. No acute cardiopulmonary disease VASCULAR ULTRASOUND RIGHT LOWER EXTREMITY IMPRESSION: Negative right lower extremity duplex venous ultrasound for DVT. [facility] Medical History Anxiety Diabetes History of posttraumatic stress disorder (PTSD) Hypothyroid Major depressive disorder, recurrent severe without psychotic features Surgical History H/O dilation and curettage H/O hysterectomy with oophorectomy H/O left wrist surgery H/O sinus surgery History of left knee surgery Hx of breast biopsy S/P rotator cuff repair Social History household members: spouse Smoking Status: Never smoker alcohol intake: current Discharge Plan Discharge Plan Patient Disposition: Home Discharge orders & Medications Prescriptions: New prednisone 10 mg tablet 40 mg PO DAILY Qty: 20 RF: 0 ipratropium-albuterol 0.5 mg-3 mg(2.5 mg base)/3 mL Solution For Nebulization 3 ml INH RTBID Qty: 50 RF: 0 Continued levothyroxine 50 mcg capsule 50 mcg PO QAM RF: 0 atorvastatin [Lipitor] 10 mg tablet 20 mg PO BEDTIME RF: 0 cholecalciferol (vitamin D3) 125 mcg (5,000 unit) capsule 125 mcg PO DAILY RF: 0 aspirin [Aspirin Childrens] 81 mg tablet,chewable 81 mg PO DAILY RF: 0 Dupixent Syringe 300 mg/2 mL syringe 300 mg SUBCUT Q2W RF: 0 trazodone 100 mg tablet 100 mg PO BEDTIME Qty: 90 RF: 3 duloxetine [Cymbalta] 60 mg capsule,delayed release(DR/EC) 60 mg PO BID Qty: 180 RF: 3 levalbuterol tartrate [Xopenex HFA] 45 mcg/actuation HFA aerosol inhaler 2 puff inhalation Q4-6H PRN (Reason: shortness of breath or wheezing) Qty: 15 RF: 0 venlafaxine [Effexor XR] 150 mg capsule,extended release 24hr 150 mg PO DAILY RF: 0 prednisolone acetate [Pred Forte] 1 % drops,suspension 1 drp EYE-RIGHT BID RF: 0 Discontinued levalbuterol HCl [Xopenex] 1.25 mg/3 mL solution for nebulization 1.25 mg inhalation Q4-6H PRN (Reason: shortness of breath or wheezing) Qty: 75 RF: 0 prednisone 10 mg Tablet 40 mg PO DAILY RF: 0 Follow up/Referrals: Tamia Cabral PA-C [Primary Care Provider] - Diet/Activity/Treatments Diet: Diet as Tolerated and Regular Discharge Data Primary Care Provider: Tamia Cabral VTE Deep Vein Thrombosis/Pulmonary Embolism Present on Admission: No
--- NOTE | 2020-08-31 12:19 | CM.DPC ---
DCP: continued. Pt now with d/c order to home. Met with her know and found her sitting up eating lunch. She says she is aware of the d/c order for today and that her will be arriving to take her home. She said she was comfortable with the plan for d/c today.
--- NOTE | 2020-08-31 18:00 | PC.NURSE ---
1630: A&OX4. 98%RA. LS: clear. pt denies chest pain. CMS+. discharge instruction given. scripts given. pt will leave at 1800. call light in reach.
== END 2020-08-31 17:56 | disposition home or self-care (01) | DRG 202 ==
LOC: ED 10:19 → AC 13:51
PROVIDERS: Internal Medicine; Nurse Practitioner Family; Admitting Provider Internal Medicine; Emergency Provider Nurse Practitioner Family; PCP Physician Assistant Medical; Referring Provider Nurse Practitioner Family; Visit Provider Internal Medicine
DX: J45.51 Severe persistent asthma with (acute) exacerbation (principal); Z68.41 Body mass index [BMI] 40.0-44.9, adult; E66.9 Obesity, unspecified; B34.8 Other viral infections of unspecified site; Z20.822 Contact with and (suspected) exposure to COVID-19; E78.5 Hyperlipidemia, unspecified; E03.9 Hypothyroidism, unspecified; F41.9 Anxiety disorder, unspecified; F32.9 Major depressive disorder, single episode, unspecified; R03.0 Elevated blood-pressure reading, without diagnosis of hypertension; M79.661 Pain in right lower leg; D72.829 Elevated white blood cell count, unspecified; T38.0X5A Adverse effect of glucocorticoids and synthetic analogues, initial encounter; Z86.711 Personal history of pulmonary embolism
CPT/HCPCS: 36415; 36600; 71046; 71275; 80048; 80053; 81003; 82550; 82553; 82805; 82962; 83605; 83735; 83880; 84439; 84443; 84484; 85007; 85025; 85610; 85730; 87070; 87205; 87633; 87635; 93005; 93306; 93971; 94150; 94640; 94760; 94762; 96365; 96375; 99283; 99284; C9803; A9270; J1650; J1956; J2930; J3475; J7613; J7614; Q9967

== ENCOUNTER 2021-07-28 10:10 | Emergency (ER) | payer OTHER, SELFPAY ==
[2021-01-12 10:25] VITALS: BMI 39.1
[2021-07-28] VITALS (11 sets, daily range): BP systolic 118–152; BP diastolic 61–72; PULSE 70–93; RESP 17–28; TEMP 36.2; O2SAT 93–100
--- NOTE | 2021-07-28 10:28 | DI.RAD.S_ITS ---
PROCEDURE: XR CHEST 1V INDICATIONS: sob TECHNIQUE: One view of the chest was acquired. COMPARISON: [facility], CT, CT ANGIO CHEST PE PROTOCOL, 08/23/2020, 20:21. [facility], CR, XR CHEST 2V, 08/27/2020, 16:42. [facility], CR, XR CHEST 2V, 08/25/2020, 11:01. FINDINGS: Surgical changes and devices: None. Lungs and pleura: Prominent interstitial markings. Lung volumes are within normal limits. No consolidation seen. No pleural effusions or pneumothorax. Mediastinum: Mediastinal contours appear unchanged. Heart size is prominent. Bones and chest wall: No suspicious bony lesions. Right shoulder anchors. Overlying soft tissues appear unremarkable. IMPRESSION: Prominent interstitial markings. This could be seen in pulmonary vasculature engorgement. Dictated by: Shaquille Garay M.D. on 07/28/2021 at 11:28 Approved by: Shaquille Garay M.D. on 07/28/2021 at 11:39
[2021-07-28 10:46] LABS: COVID19 -Nasal RAPID Negative (Negative)
--- NOTE | 2021-07-28 11:02 | ED_ITS ---
HPI - General Adult General Chief complaint: Shortness of Breath/Dyspnea Stated complaint: severe asthma attack Time Seen by Provider: 07/28/21 10:19 Source: patient and family Mode of arrival: Ambulatory History of Present Illness HPI narrative: Patient is a 65-year-old female. Does have a history of asthma. Has nebulizers and inhalers at home. States that 2 weeks ago her came down with an upper respiratory infection. She subsequently developed symptoms as well. Since that time she has had an increase in the use of her nebulizers. Over the past couple days she has had increasing shortness of breath and cough. She went to her primary doctor's office today but they could not see her. She called her stationary engineer apprentice. She did take 40 mg of prednisone today. Her symptoms have continued to worsen since she came to the emergency department. She states that she normally does not have any wheezing during the symptoms but this does feel like her prior asthma issues. Related Data Home Medications Medication Instructions Recorded Confirmed atorvastatin 10 mg tablet (Lipitor) 20 mg PO BEDTIME 02/21/19 06/15/21 levothyroxine 50 mcg capsule 50 mcg PO QAM cap 02/21/19 06/15/21 aspirin 81 mg chewable tablet 81 mg PO DAILY 07/04/19 06/15/21 (Aspirin Childrens) dupilumab 300 mg/2 mL subcutaneous 300 mg SUBCUT Q2W 08/01/19 06/15/21 syringe (Dupixent) cholecalciferol (vitamin D3) 125 125 mcg PO DAILY 12/25/19 06/15/21 mcg (5,000 unit) capsule prednisolone acetate 1 % eye 1 drp EYE-RIGHT BID 08/25/20 06/15/21 drops,suspension (Pred Forte) budesonide 160 mcg-glycopyr 9 2 inh INHALATION BID 12/04/20 06/15/21 mcg-formot 4.8 mcg/actuation HFA inhaler (Breztri JustPartsphere) Previous Rx's Medication Instructions Recorded levalbuterol tartrate 45 2 puff INHALATION Q4-6H PRN #15 g 08/24/20 mcg/actuation aerosol inhaler (Xopenex HFA) ipratropium 0.5 mg-albuterol 3 mg 3 ml INH RTBID #50 ml 08/31/20 (2.5 mg base)/3 mL nebulization soln prednisone 10 mg tablet 40 mg PO DAILY #20 tab 08/31/20 venlafaxine 150 mg 150 mg PO DAILY #90 cap 03/05/21 capsule,extended release 24 hr (Effexor XR) duloxetine 60 mg capsule,delayed See Rx Instructions .ROUTE 05/28/21 release .COMPLEX #60 cap duloxetine 30 mg capsule,delayed 30 mg PO DAILY #30 cap 06/15/21 release trazodone 100 mg tablet 100 mg PO BEDTIME #90 tab 07/10/21 albuterol sulfate 2.5 mg (3 mL) INHALATION Q4-6H PRN 07/28/21 #90 ml prednisone 20 mg tablet 20 mg PO DAILY #30 tab 07/28/21 Allergies Allergy/AdvReac Type Severity Reaction Status Date / Time adhesive tape Allergy Severe rash Verified 07/28/21 10:16 pseudoephedrine Allergy Severe tachy Verified 07/28/21 10:16 [From Sudafed] Sulfa (Sulfonamide Allergy Severe hives Verified 07/28/21 10:16 Antibiotics) fluticasone Allergy Intermediate hives Verified 07/28/21 10:16 [From Advair Diskus] salmeterol Allergy Intermediate hives Verified 07/28/21 10:16 [From Advair Diskus] naproxen Allergy Mild hives Verified 07/28/21 10:16 erythromycin base AdvReac Intermediate vomiting Verified 07/28/21 10:16 albuterol AdvReac Mild Verified 07/28/21 10:16 Review of Systems Constitutional Constitutional: Denies headache(s) ENT Ears, Nose, Mouth, and Throat: Denies headache(s) Cardiovascular Cardiovascular: Reports system reviewed and no additional complaints, except as documented Respiratory Respiratory: Reports as per HPI and Reports system reviewed and no additional complaints, except as documented Gastrointestinal Gastrointestinal: Reports system reviewed and no additional complaints, except as documented Genitourinary Genitourinary: Reports system reviewed and no additional complaints, except as documented Musculoskeletal Musculoskeletal: Reports system reviewed and no additional complaints, except as documented Integumentary/Breasts Skin/Breast: Reports system reviewed and no additional complaints, except as documented Neurologic Neurologic: Denies headache(s) Hematologic/Lymphatic On Anticoagulants: No Allergic/Immunologic Allergic/Immunologic: Reports system reviewed and no additional complaints, except as documented Patient History Medical History Anxiety Diabetes History of posttraumatic stress disorder (PTSD) Hypothyroid Major depressive disorder, recurrent severe without psychotic features Surgical History H/O dilation and curettage H/O hysterectomy with oophorectomy H/O left wrist surgery H/O sinus surgery History of left knee surgery Hx of breast biopsy S/P rotator cuff repair Social History household members: spouse Smoking Status: Never smoker alcohol intake: current Smoking Status: Never smoker alcohol intake frequency: a few times a week Substance Use Type: does not use Exam Initial Vital Signs Initial Vital Signs: Vital Signs Temperature 97.1 F L 07/28/21 10:10 Pulse Rate 72 07/28/21 10:10 Respiratory Rate 28 H 07/28/21 10:10 Blood Pressure 135/72 07/28/21 10:10 Pulse Oximetry 100 07/28/21 10:10 HENMT Head: normal to inspection Resp Effort & Inspection: not labored and tachypneic Auscultation: clear to auscultation bilaterally Cardio Rate: regular rate Rhythm: regular rhythm GI Inspection: normal to inspection Skin General: no rashes or lesions noted Neuro General: patient alert, patient awake and moves all extremities Extrem General: normal to inspection Psych Appearance: grossly normal Course Orders Ordered: ED Orders 07/28/21 10:16 COVID19 -Nasal swab/Pre-Proc Stat 07/28/21 10:18 EKG-12 Lead Stat 07/28/21 10:28 XR chest 1V Stat 07/28/21 12:15 Basic Metabolic Panel Stat Complete Blood Count AUTO DIFF Stat NT-proBNP (BNP-Adult 18+) Stat Troponin & CK Cardiac Panel Stat Discontinued Medications Albuterol (Albuterol 2.5 Mg/3 Ml Neb (Adult)) 5 mg INH NOW ONE Stop: 07/28/21 11:03 Last Admin: 07/28/21 11:12 Dose: 5 mg Documented by: BAILEY Vital Signs Vital signs: Vital Signs - 8 hr 07/28/21 11:00 07/28/21 11:14 07/28/21 11:30 Pulse Rate 75 76 Respiratory Rate 24 22 Blood Pressure 152/70 H Pulse Oximetry 96 98 97 07/28/21 11:31 07/28/21 12:11 07/28/21 12:30 Pulse Rate 75 83 89 Respiratory Rate 20 22 24 Blood Pressure 118/64 127/65 131/65 Pulse Oximetry 95 98 96 07/28/21 13:00 Pulse Rate 93 H Respiratory Rate 17 Blood Pressure 119/61 Pulse Oximetry 93 Medical Decision Making Lab Data Result diagrams: 07/28/21 12:15 07/28/21 12:15 Labs: Lab Results 07/28/21 07/28/21 07/28/21 Range/Units 10:16 12:15 12:15 WBC 8.8 (4.5-11.0) X10^3/uL RBC 4.39 (4.0-5.2) X10^6/uL Hgb 13.1 (12.0-16.0) g/dL Hct 39.0 (36-46) % MCV 88.7 (80-100) fL MCH 29.9 (26-34) PG MCHC 33.7 (30-36) % RDW 13.8 (11.6-14.8) % Plt Count 230 (150-400) X10^3/uL Neut % (Auto) 83.9 H (50-75) % Lymph % (Auto) 13.0 L (25-40) % [place] % (Auto) 2.3 L (3-14) % Eos % (Auto) 0.4 L (2-4) % Baso % (Auto) 0.4 (0-2) % Neut # (Auto) 7400 H (3981-3094) /uL Lymph # (Auto) 1100 (8811-2810) /uL [place] # (Auto) 200 (0-900) /uL Eos # (Auto) 0 (0-450) /uL Baso # (Auto) 0 (0-100) /uL Sodium 139 (137-145) mmol/L Potassium 3.8 (3.4-5.1) mmol/L Chloride 106 (98-107) mmol/L Carbon Dioxide 26 (22-32) mmol/L BUN 20 H (7-17) mg/dL Creatinine 0.76 (0.52-1.04) mg/dL Estimated GFR > 60.0 (>60) mL/min BUN/Creatinine Ratio 26.3 H (6-22) Glucose 114 H (80-110) mg/dL Calcium 9.5 (8.4-10.2) mg/dL Total Creatine Kinase 166 H (30-135) U/L CK-MB (CK-2) 1.99 (<2.37) ng/mL CK-MB (CK-2) Rel Index 1.2 L (1.5-5.0) % Troponin I < 0.012 (0.01-0.034) ng/mL NT-Pro-B Natriuret Pep 40 (<125) pg/mL SARS-CoV-2 (PCR) Negative (Negative) Imaging Data Chest x-ray: Radiologist's Impression: [address] [address] XRay Report Signed Patient: Mora Kim MR#: [id number] : 1955 Acct:[id number] Age/Sex: 65 / F Date of Service: 07/28/21 Loc: ED Accession Number: [id number] ?? Procedure: XR chest 1V Ordering Provider: David Powers D.O. PROCEDURE:? XR CHEST 1V ? INDICATIONS:? sob ? TECHNIQUE:? One view of the chest was acquired.? ? COMPARISON:? [facility], CT, CT ANGIO CHEST PE PROTOCOL, 08/23/2020, 20:21.? [facility], CR, XR CHEST 2V, 08/27/2020, 16:42.? [facility], CR, XR CHEST 2V, 08/25/2020, 11:01. ? FINDINGS:? ? Surgical changes and devices:? None.? ? Lungs and pleura:? Prominent interstitial markings.? Lung volumes are within normal limits.? No consolidation seen.? No pleural effusions or pneumothorax.? ? Mediastinum:? Mediastinal contours appear unchanged.? Heart size is prominent.? ? Bones and chest wall:? No suspicious bony lesions.? Right shoulder anchors.? Overlying soft tissues appear unremarkable.? ? IMPRESSION:? Prominent interstitial markings. This could be seen in pulmonary vasculature engorgement. ? ? Dictated by: Shaquille Garay M.D. on 07/28/2021 at 11:28 ? ? Approved by: Shaquille Garay M.D. on 07/28/2021 at 11:39 ECG Data Attestation: I personally reviewed and interpreted this ECG as follows: Prior ECG tracings: not available for review Interpretation: Sinus rhythm Ventricular rate of 77 Normal axis Normal QRS Normal QTC No ST T wave changes MDM Narrative Medical decision making narrative: Patient has clear lung exam. Her labs are unremarkable. Chest x-ray shows no signs of pneumonia. She states she did feel somewhat better after the treatments here in the ER. Not hypoxic. No indication for admission the hospital. No indication for antibiotics. She does have prednisone at home and I will give her a another prescription for this in case she needs to extended we had a significant discussion about this. Will give a refill of her albuterol nebulizer medications. She was given return precautions and follow-up instructions. She expressed understanding and agreement. Discharge Plan Departure Patient Disposition: Home Clinical Impression: Asthma with exacerbation Instructions: DI for Asthma -- Adult Activity Restrictions/Additional Instructions: Continue to take all of your medications as directed. Contact your primary doctor for a follow-up and return to the emergency department for any new or worsening symptoms. Prescriptions: New albuterol sulfate 2.5 mg /3 mL (0.083 %) solution for nebulization 2.5 mg inhalation Q4-6H PRN (Reason: shortness of breath or wheezing) Qty: 90 0RF prednisone 20 mg tablet 20 mg PO DAILY Qty: 30 0RF Rx Instructions: use as directed No Action levothyroxine 50 mcg capsule 50 mcg PO QAM 0RF atorvastatin [Lipitor] 10 mg tablet 20 mg PO BEDTIME 0RF cholecalciferol (vitamin D3) 125 mcg (5,000 unit) capsule 125 mcg PO DAILY 0RF Breztri Aerosphere 160-9-4.8 mcg/actuation HFA aerosol inhaler 2 inh inhalation BID 0RF duloxetine 30 mg capsule,delayed release(DR/EC) 30 mg PO DAILY Qty: 30 0RF Rx Instructions: tapering dose: take once daily aspirin [Aspirin Childrens] 81 mg tablet,chewable 81 mg PO DAILY 0RF Dupixent Syringe 300 mg/2 mL syringe 300 mg SUBCUT Q2W 0RF venlafaxine [Effexor XR] 150 mg capsule,extended release 24hr 150 mg PO DAILY Qty: 90 3RF duloxetine 60 mg capsule,delayed release(DR/EC) See Rx Instructions .ROUTE .COMPLEX Qty: 60 2RF Dose Instruction: Take 1 capsule by mouth twice a day Rx Instructions: Take 1 capsule by mouth twice a day trazodone 100 mg tablet 100 mg PO BEDTIME Qty: 90 1RF levalbuterol tartrate [Xopenex HFA] 45 mcg/actuation HFA aerosol inhaler 2 puff inhalation Q4-6H PRN (Reason: shortness of breath or wheezing) Qty: 15 0RF prednisolone acetate [Pred Forte] 1 % drops,suspension 1 drp EYE-RIGHT BID 0RF prednisone 10 mg tablet 40 mg PO DAILY Qty: 20 0RF Rx Instructions: take 4 tabs for 2 days then 3 tabs for 2 days then 2 tabs for 2 days then 1 tab for 2 days ipratropium-albuterol 0.5 mg-3 mg(2.5 mg base)/3 mL Solution For Nebulization 3 ml INH RTBID Qty: 50 0RF Referrals: Tamia Cabral PA-C [Primary Care Provider] -
[2021-07-28] MEDS: ALBUTEROL 2.5 MG/3 ML NEB (ADULT) 5 MG INH (11:12)
[2021-07-28 12:34] LABS: Add Manual Diff / Slide Review NO; Basophils Absolute Auto 0 /uL (0-100); Basophils Percent Auto 0.4 % (0-2); Eosinophils Absolute Auto 0 /uL (0-450); Eosinophils Percent Auto 0.4 % (2-4); Hemoglobin 13.1 g/dL (12.0-16.0); Lymphocytes Absolute Auto 1100 /uL (1100-4500); Mean Corpuscular HGB Conc 33.7 % (30-36); Mean Corpuscular Hemoglobin 29.9 PG (26-34); Mean Corpuscular Volume 88.7 fL (80-100); Monocytes Absolute Auto 200 /uL (0-900); Monocytes Percent Auto 2.3 % (3-14); Neutrophils Absolute Auto 7400 /uL (1500-7000); Neutrophils Percent Auto 83.9 % (50-75); Platelet Count 230 X10^3/uL (150-400); Red Blood Cell Count 4.39 X10^6/uL (4.0-5.2); Red Cell Distribution Width 13.8 % (11.6-14.8); White Blood Cell Count 8.8 X10^3/uL (4.5-11.0)
[2021-07-28 12:49] LABS: BUN Creatinine Ratio 26.3 (6-22); Blood Urea Nitrogen 20 mg/dL (7-17); Calcium 9.5 mg/dL (8.4-10.2); Carbon Dioxide 26 mmol/L (22-32); Chloride 106 mmol/L (98-107); Creatine Kinase 166 U/L (30-135); Estimated Glomerular Filt Rate > 60.0 mL/min (>60); Glucose 114 mg/dL (80-110); HEMOLYSIS < 15 (0-50); Potassium 3.8 mmol/L (3.4-5.1); Sodium 139 mmol/L (137-145)
[2021-07-28 13:01] LABS: NT-proBNP (BNP-Adult 18+) 40 pg/mL (<125); Troponin I < 0.012 ng/mL (0.01-0.034)
[2021-07-28 13:03] LABS: CKMB % Relative Index 1.2 % (1.5-5.0); Creatine Kinase MB 1.99 ng/mL (<2.37)
== END 2021-07-28 13:40 | disposition home or self-care (01) ==
PROVIDERS: Emergency Provider Emergency Medicine; PCP Physician Assistant Medical
DX: J45.901 Unspecified asthma with (acute) exacerbation (principal); Z88.8 Allergy status to other drugs, medicaments and biological substances; Z20.822 Contact with and (suspected) exposure to COVID-19
CPT/HCPCS: 36415; 71045; 80048; 82550; 82553; 83880; 84484; 85025; 87635; 93005; 94150; 94640; 99284; C9803; J7613

== ENCOUNTER → 2022-03-11 11:34 | Outpatient (CLI) | payer OTHER, SELFPAY ==
[2021-01-12 10:25] VITALS: BMI 39.1
--- NOTE | 2022-03-11 | DI.RAD.S_ITS ---
PROCEDURE: XR KNEE LT 3V INDICATIONS: Right Knee pain, Left knee pain TECHNIQUE: 3 views of the knee were acquired. COMPARISON: None. FINDINGS: Bones: No fractures or dislocations. No suspicious bony lesions. There is moderate tricompartmental osteoarthritic type degenerative change with the medial compartment most severely affected. Soft tissues: No joint effusion. No suspicious soft tissue calcifications. IMPRESSION: 1. No evidence for acute osseous abnormality involving the left knee. 2. 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 Dictated by: David Albrecht M.D. on 03/11/2022 at 11:56 Approved by: David Albrecht M.D. on 03/11/2022 at 11:58
--- NOTE | 2022-03-11 | DI.RAD.S_ITS ---
PROCEDURE: XR KNEE RT 3V INDICATIONS: Right Knee pain, Left knee pain TECHNIQUE: 3 views of the knee were acquired. COMPARISON: None. FINDINGS: Bones: No fractures or dislocations. No suspicious bony lesions. There is moderate tricompartmental osteoarthritic degenerative change involving the right knee with medial compartment most severely affected. Soft tissues: No joint effusion. No suspicious soft tissue calcifications. IMPRESSION: 1. No evidence for acute osseous abnormality identified. 2. Moderate tricompartmental osteoarthritic degenerative change of the medial compartment most severely affected. Dictated by: David Albrecht M.D. on 03/11/2022 at 11:59 Approved by: David Albrecht M.D. on 03/11/2022 at 12:00
== END ==
PROVIDERS: PCP Family Medicine; Referring Provider Family Medicine; Visit Provider Family Medicine
DX: M25.561 Pain in right knee (principal); M25.562 Pain in left knee
CPT/HCPCS: 73562

== ENCOUNTER 2022-04-14 14:22 | Emergency (ER) | payer OTHER, SELFPAY ==
[2021-01-12 10:25] VITALS: BMI 39.1
[2022-04-14 14:33] VITALS: BP 151/71; PULSE 71; RESP 18; TEMP 35.6; O2SAT 97; BMI 41.1
--- NOTE | 2022-04-14 15:08 | DI.CT.S_ITS ---
PROCEDURE: CT KNEE RIGHT WITHOUT CON INDICATIONS: avulsion fracture of rt MCL, tibial plateau fracture TECHNIQUE: Noncontrast 1-1.5 mm axial sections acquired from the mid-patella to the proximal tibia, with coronal and sagittal reformats. COMPARISON: [facility], CR, XR KNEE RT 3V, 03/11/2022, 11:40. [facility], CR, XR KNEE RT 1TO2V, 04/14/2022, 14:57. FINDINGS: Image quality: Excellent. Bones: No acute osseous fracture or dislocation. Tricompartmental degenerative changes are seen that are most prominent at the medial compartment. There is moderate joint space narrowing with marginal osteophyte formation and subchondral sclerosis. Mild joint space narrowing and marginal osteophytes are seen at the lateral and anterior compartments. Soft tissues: Moderate joint effusion. The ligaments, tendons, menisci, and articular cartilages are not well evaluated with standard CT. The musculature surrounding the knee is normal in bulk. Small varicose veins are seen in the posterolateral subcutaneous tissues. Mild subcutaneous soft tissue edema anteriorly. IMPRESSION: 1. No acute osseous abnormality. If there is continued concern for trabecular bone injury, occult fracture, or significant soft tissue injury, MRI could be performed for further evaluation. 2. Moderate joint effusion. 3. Tricompartmental osteoarthrosis. Approved by: David Sawant M.D. on 04/14/2022 at 16:35
--- NOTE | 2022-04-14 15:10 | DI.RAD.S_ITS ---
PROCEDURE: XR KNEE RT 1TO2V INDICATIONS: injury TECHNIQUE: 2 views of the knee were acquired. COMPARISON: None. FINDINGS: Bones: There is a slight asymmetric appearance of the medial tibial plateau. However, it is relatively stable compared to prior exam. No suspicious bony lesions. Soft tissues: Mild joint effusion. No suspicious soft tissue calcifications. IMPRESSION: No visualized acute fracture or dislocation. However, if clinical concern and/or pain persist, short interval imaging followup in 7-10 days is recommended, as occult injury cannot be definitively excluded. Dictated by: Judy Marks M.D. on 04/14/2022 at 15:45 Approved by: Judy Marks M.D. on 04/14/2022 at 15:46
--- NOTE | 2022-04-14 15:15 | ED_ITS ---
HPI - Extremity Injury (Lower) <Hilda Ha, [facility] - Last Filed: 04/14/22 20:23> General Chief Complaint: Extremity Injury, Lower Stated Complaint: right knee injury Time Seen by Provider: 04/14/22 14:51 History of Present Illness HPI Narrative: This is a 66-year-old female presents to the emergency department complaining of right knee pain after she twisted at work yesterday to bend over and belt picker something and felt immediate pain in her right knee, states it was severe, 10/10 pain on the medial aspect and has not been able to walk on without unstable and having severe pain. She was seen at the urgent care who did plain x-rays and reported that there was an avulsion fracture related to a likely MCL injury. She was given Toradol IM and discharged home, she was unable to sleep last night due to pain, muscle spasms, and went to the emergency department at [facility]. They did not complete any additional imaging, she was given an IM injection of Dilaudid, and discharged home. Her primary care provider is Stefani Castellanos at the [facility] and reportedly sent her to the emergency department with hope for MRI. Patient endorses having 10/10 pain, has not had any Toradol today, endorses pain on the medial aspect, denies any sensation changes, ankle pain, foot pain or hip pain. She is not able to bear weight, reports that it feels unstable. She has a history of asthma, PTSD, depression and anxiety. There is no open wound, this is a work-related injury. Related Data Home Medications Medication Instructions Recorded Confirmed atorvastatin 10 mg tablet (Lipitor) 20 mg PO BEDTIME 02/21/19 02/21/22 levothyroxine 50 mcg capsule 50 mcg PO QAM 02/21/19 02/21/22 aspirin 81 mg chewable tablet 81 mg PO DAILY 07/04/19 02/21/22 (Aspirin Childrens) dupilumab 300 mg/2 mL subcutaneous 300 mg SUBCUT Q2W 08/01/19 02/21/22 syringe (Dupixent) cholecalciferol (vitamin D3) 125 125 mcg PO DAILY 12/25/19 02/21/22 mcg (5,000 unit) capsule prednisolone acetate 1 % eye 1 drp EYE-RIGHT BID 03/01/21 08/28/22 drops,suspension (Pred Forte) budesonide 160 mcg-glycopyr 9 2 inh inhalation BID 12/04/20 02/21/22 mcg-formot 4.8 mcg/actuation HFA inhaler (Breztri MiniBanda.ruphere) Previous Rx's Medication Instructions Recorded levalbuterol tartrate 45 2 puff inhalation Q4-6H PRN 08/24/20 mcg/actuation aerosol inhaler shortness of breath or wheezing (Xopenex HFA) #15 grams ipratropium 0.5 mg-albuterol 3 mg 3 ml INH RTBID #50 mL 08/31/20 (2.5 mg base)/3 mL nebulization soln prednisone 10 mg tablet 40 mg PO DAILY #20 tabs 08/31/20 albuterol sulfate 2.5 mg/3 mL 2.5 mg (3 mL) inhalation Q4-6H PRN 07/28/21 (0.083 %) solution for nebulization shortness of breath or wheezing #90 mL prednisone 20 mg tablet 20 mg PO DAILY #30 tabs 07/28/21 trazodone 100 mg tablet 100 mg PO BEDTIME #90 tabs 03/08/22 venlafaxine 150 mg 150 mg PO DAILY #90 caps 03/08/22 capsule,extended release 24 hr (Effexor XR) diclofenac sodium 1 % topical gel 4 g topical QID #100 grams 04/14/22 ketorolac 10 mg tablet 10 mg PO Q8H PRN pain #30 tabs 04/14/22 methocarbamol 750 mg tablet 750 mg PO TID muscle spasms #30 04/14/22 tabs oxycodone-acetaminophen 5 mg-325 1 tab PO Q6H PRN pain #14 tabs 04/14/22 mg tablet (Percocet) Allergies Allergy/AdvReac Type Severity Reaction Status Date / Time adhesive tape Allergy Severe rash Verified 04/14/22 14:33 pseudoephedrine Allergy Severe tachy Verified 04/14/22 14:33 [From Sudafed] Sulfa (Sulfonamide Allergy Severe hives Verified 04/14/22 14:33 Antibiotics) fluticasone Allergy Intermediate hives Verified 04/14/22 14:33 [From Advair Diskus] salmeterol Allergy Intermediate hives Verified 04/14/22 14:33 [From Advair Diskus] naproxen Allergy Mild hives Verified 04/14/22 14:33 erythromycin base AdvReac Intermediate vomiting Verified 04/14/22 14:33 albuterol AdvReac Mild Verified 04/14/22 14:33 Review of Systems <SADIE Mcfadden - Last Filed: 04/14/22 20:23> Review of Systems Narrative: Review of systems is negative for acute abnormalities unless otherwise noted in HPI Patient History <SADIE Mcfadden - Last Filed: 04/14/22 20:23> Medical History Anxiety Diabetes History of posttraumatic stress disorder (PTSD) Hypothyroid Major depressive disorder, recurrent severe without psychotic features Surgical History H/O dilation and curettage H/O hysterectomy with oophorectomy H/O left wrist surgery H/O sinus surgery History of left knee surgery Hx of breast biopsy S/P rotator cuff repair Social History household members: spouse Smoking Status: Never smoker alcohol intake: current Smoking Status: Never smoker alcohol intake frequency: 0-2 drinks per day Substance Use Type: does not use Exam <SADIE Mcfadden - Last Filed: 04/14/22 20:23> Narrative Exam Narrative: Reviewed vitals signs and nursing notes. General: cooperative, comfortable, in acute distress, well groomed, overweight HEENT: symmetrical facial expressions, moist mucous membranes Cardiovascular: regular rate and rhythm, no peripheral edema, warm extremities Respiratory: normal effort, able to speak in complete sentences, without wheezing, stridor, or abnormal breath sounds. No retractions or tachypnea. GI: abdomen soft, nontender to palpation, nondistended, without masses, rebound tenderness or exquisite tenderness with exam. MSK: moves all extremities, neurovascularly intact, no weakness, normal tone, muscle spasm of the quadriceps, unable to flex knee for x-ray Skin: brisk capillary refill, without pallor or erythema, ecchymosis on the medial aspect, palpable effusion Neuro: normal speech and cognition, A&O x3, ambulatory, clear speech Psych: mental status is grossly normal, congruent mood, normal affect, pleasant and cooperative Initial Vital Signs Initial Vital Signs: Vital Signs Temperature 96.0 F L 04/14/22 14:33 Pulse Rate 71 04/14/22 14:33 Respiratory Rate 18 04/14/22 14:33 Blood Pressure 151/71 H 04/14/22 14:33 Pulse Oximetry 97 04/14/22 14:33 Oxygen Delivery Method 04/14/22 14:33 <Antonia Melara DO - Last Filed: 04/15/22 07:33> Initial Vital Signs Initial Vital Signs: Vital Signs Temperature 96.0 F L 04/14/22 14:33 Pulse Rate 71 04/14/22 14:33 Respiratory Rate 18 04/14/22 14:33 Blood Pressure 151/71 H 04/14/22 14:33 Pulse Oximetry 97 04/14/22 14:33 Oxygen Delivery Method 04/14/22 14:33 Course <SADIE Mcfadden - Last Filed: 04/14/22 20:23> Orders Ordered: Discontinued Medications Hydromorphone HCl (Hydromorphone 1 Mg Inj) 1 mg IM NOW ONE Stop: 04/14/22 15:12 Last Admin: 04/14/22 15:36 Dose: 1 mg Documented By: MALINDA Ketorolac Tromethamine (Ketorolac 30 Mg/Ml Vial) 15 mg IM NOW ONE Stop: 04/14/22 15:12 Last Admin: 04/14/22 15:35 Dose: 15 mg Documented By: MALINDA Methocarbamol (Methocarbamol 500 Mg Tablet) 750 mg PO NOW ONE Stop: 04/14/22 15:12 Last Admin: 04/14/22 15:36 Dose: 750 mg Documented By: MALINDA Vital Signs Vital signs: Vital Signs - 8 hr 04/14/22 14:33 04/14/22 17:06 Temperature 96.0 F L Pulse Rate 71 65 Respiratory Rate 18 18 Blood Pressure 151/71 H 152/66 H Pulse Oximetry 97 97 Oxygen Delivery Method Room Air Room Air <Antonia Melara DO - Last Filed: 04/15/22 07:33> Orders Ordered: Discontinued Medications Hydromorphone HCl (Hydromorphone 1 Mg Inj) 1 mg IM NOW ONE Stop: 04/14/22 15:12 Last Admin: 04/14/22 15:36 Dose: 1 mg Documented By: MALINDA Ketorolac Tromethamine (Ketorolac 30 Mg/Ml Vial) 15 mg IM NOW ONE Stop: 04/14/22 15:12 Last Admin: 04/14/22 15:35 Dose: 15 mg Documented By: MALINDA Methocarbamol (Methocarbamol 500 Mg Tablet) 750 mg PO NOW ONE Stop: 04/14/22 15:12 Last Admin: 04/14/22 15:36 Dose: 750 mg Documented By: MALINDA Vital Signs Vital signs: Vital Signs - 8 hr 04/14/22 14:33 04/14/22 17:06 Temperature 96.0 F L Pulse Rate 71 65 Respiratory Rate 18 18 Blood Pressure 151/71 H 152/66 H Pulse Oximetry 97 97 Oxygen Delivery Method Room Air Room Air MDM - Extremity Injury (Lower) <Hilda Ha, [facility] - Last Filed: 04/14/22 20:23> Imaging Data Extremity x-ray #1: Radiologist's Impression: No radiology's report was available to carry over, right knee two-view x-ray was obtained as patient was unable to flex her right knee, impression states no visualized acute fracture dislocation but under the bones it says there is a slight asymmetric appearance of the medial tibial plateau however it is relatively stable compared to prior exam without suspicious bony lesions. ct rt knee: Radiologist's Impression: PROCEDURE:? CT KNEE RIGHT WITHOUT CON ? INDICATIONS:? avulsion fracture of rt MCL, tibial plateau fracture ? TECHNIQUE:? Noncontrast 1-1.5 mm axial sections acquired from the mid-patella to the proximal tibia, with coronal and sagittal reformats.? ? COMPARISON:? [facility], CR, XR KNEE RT 3V, 03/11/2022, 11:40.? [facility], CR, XR KNEE RT 1TO2V, 04/14/2022, 14:57. ? FINDINGS:? Image quality:? Excellent.? ? Bones:? No acute osseous fracture or dislocation.? Tricompartmental degenerative changes are seen that are most prominent at the medial compartment.? There is moderate joint space narrowing with marginal osteophyte formation and subchondral sclerosis.? Mild joint space narrowing and marginal osteophytes are seen at the lateral and anterior compartments. ? Soft tissues:? Moderate joint effusion.? The ligaments, tendons, menisci, and articular cartilages are not well evaluated with standard CT.? The musculature surrounding the knee is normal in bulk.? Small varicose veins are seen in the posterolateral subcutaneous tissues.? Mild subcutaneous soft tissue edema anteriorly. ? IMPRESSION:? 1. No acute osseous abnormality.? If there is continued concern for trabecular bone injury, occult fracture, or significant soft tissue injury, MRI could be performed for further evaluation. 2. Moderate joint effusion.? 3. Tricompartmental osteoarthrosis. ? ? ? Approved by: David Sawant M.D. on 04/14/2022 at 16:35? [facility] Narrative Medical decision making narrative: This is a 66-year-old female with history of osteoarthrosis upper bilateral knees, presents to the emergency department after a work related injury where she twisted while bending over to grab something and felt a sharp pain in her right knee on the medial aspect and has been unable to bear weight due to pain and sensation of instability. She states that the tenderness on the medial aspect has been so painful that she can not touch it. Her injury occurred yesterday, she was seen at urgent care where plain x-rays were taken, she was told that there was an avulsion fracture and was seen at the [facility] emergency department last night for pain, she was unable to sleep at night and received hydromorphone in the emergency department but no further imaging was obtained. These images were not viewable from the emergency department today. A repeat of her right knee x-ray was obtained which did not show any acute osseous abnormalities. A CT without contrast was then obtained for concern about tibial plateau fracture as there was a question on the lateral view of the plain film. CT does not show any acute osseous abnormality, there is a moderate joint effusion and tricompartmental osteoarthrosis. Discussed these findings with the patient, she already has a knee immobilizer in his wearing it, it fits her well, she has crutches, not using them today because she has a wheelchair here in the emergency department. Patient understands to follow-up with Orthopedics, she will call and make an appointment, she understands that she can get an MRI ordered from her primary care provider for evaluation of her MCL. On exam she has tenderness over the MCL, suprapatellar effusion, she is unable to flex due to pain, she had quadriceps spasms while she was here in the emergency department today. I gave her methocarbamol, an IM injection of Dilaudid, and Toradol which patient reports marked relief of her pain. She was given a prescription of methocarbamol, Percocet, ketorolac, diclofenac gel, and patient states this should be adequate to help her through the next day or 2. She is gracious for her care, is able to bear weight with crutches or assistive walking device. She is neurovascularly intact, negative Esvin's, presume likely MCL tear either full or partial. No patellar tendon tenderness to palpation. This was her 3rd visit regarding this injury, her pain was out of proportion with concern for compartment syndrome, this was not present, she has a strong pedal pulse both DP and PT, brisk cap refill without lower extremity edema[place] [id number]. Discharge Plan Departure Patient Disposition: Home Clinical Impression: Work related injury, Effusion, right knee, Tricompartment osteoarthritis of right knee Acute knee pain Qualifiers: Laterality: right Qualified Code(s): M25.561 - Pain in right knee Instructions: Knee Sprain, DI for Knee Effusion, How to Use a Knee Immobilizer, How to Apply an Elastic Wrap on Knee Activity Restrictions/Additional Instructions: *You have been diagnosed with a right knee injury with a presumed MCL injury, CT shows no bony abnormality which is great news, there is osteoarthritis and soft tissue edema but no signs of dislocation or major injury. Please use the knee immobilizer any time your bearing weight, try to avoid twisting or further injur y of your knee. Please ice this frequently to 5 times a day, take Toradol as needed for pain, try topical anything that works for pain, use muscle relaxers for spasms, this will make you sleepy, please do not forget to use MiraLax to soften your stools so you do not become constipated. Please call [facility] and make an appointment for follow-up for your right knee injury, let them know that images were completed here and if you have an MRI coming up. Thank you for your patients today, I hope you feel better soon, I wish you good luck with this injury. Please ask your primary care provider to order your MRI here. *What to do: *Please continue to take your regular medications as directed. [x ] New medication prescriptions sent to your pharmacy: [[facility] ] [ ] New medication written as a paper prescription [ ] No new medications given *Please follow up with your primary care provider in 2-3 days, call for an appointment. Let them know you were seen in the Emergency Department and that we asked that you be seen for follow-up. We will electronically transmit a record of today's note if your PCP is in our system *If you do not have a primary care provider please contact [phone] to establish care with one of the [facility] primary care providers. *Return to Emergency Department if you should have any new, worsening, or argelia rning symptoms, such as [fever greater than 101F, chills, worsening pain, persistent vomiting or other bothersome symptoms]. Prescriptions: New methocarbamol 750 mg tablet 750 mg PO TID Qty: 30 0RF oxycodone-acetaminophen [Percocet] 5-325 mg tablet 1 tab PO Q6H PRN (Reason: pain) Qty: 14 0RF diclofenac sodium 1 % gel 4 g topical QID Qty: 100 0RF Rx Instructions: apply to rt knee as needed for pain ketorolac 10 mg tablet 10 mg PO Q8H PRN (Reason: pain) Qty: 30 0RF Rx Instructions: take with food and water No Action levothyroxine 50 mcg capsule 50 mcg PO QAM atorvastatin [Lipitor] 10 mg tablet 20 mg PO BEDTIME cholecalciferol (vitamin D3) 125 mcg (5,000 unit) capsule 125 mcg PO DAILY Breztri Aerosphere 160-9-4.8 mcg/actuation HFA aerosol inhaler 2 inh inhalation BID aspirin [Aspirin Childrens] 81 mg tablet,chewable 81 mg PO DAILY Dupixent Syringe 300 mg/2 mL syringe 300 mg SUBCUT Q2W trazodone 100 mg tablet 100 mg PO BEDTIME Qty: 90 3RF venlafaxine [Effexor XR] 150 mg capsule,extended release 24hr 150 mg PO DAILY Qty: 90 3RF levalbuterol tartrate [Xopenex HFA] 45 mcg/actuation HFA aerosol inhaler 2 puff inhalation Q4-6H PRN (Reason: shortness of breath or wheezing) Qty: 15 0RF prednisolone acetate [Pred Forte] 1 % drops,suspension 1 drp EYE-RIGHT BID prednisone 10 mg tablet 40 mg PO DAILY Qty: 20 0RF Rx Instructions: take 4 tabs for 2 days then 3 tabs for 2 days then 2 tabs for 2 days then 1 tab for 2 days ipratropium-albuterol 0.5 mg-3 mg(2.5 mg base)/3 mL Solution For Nebulization 3 ml INH RTBID Qty: 50 0RF albuterol sulfate 2.5 mg /3 mL (0.083 %) solution for nebulization 2.5 mg inhalation Q4-6H PRN (Reason: shortness of breath or wheezing) Qty: 90 0RF prednisone 20 mg tablet 20 mg PO DAILY Qty: 30 0RF Rx Instructions: use as directed Referrals: [facility] [Provider Group] Stefani Castellanos ARNP [Primary Care Provider] - Visit Report Forms: Patient Portal/API <Antonia Melara DO - Last Filed: 04/15/22 07:33> Cosign ED Attending Adrielature Attestation: I did see and evaluate patient. She does have significant pain is in her knee distal pedal pulses intact calf is soft no sign of compartment syndrome. At this time I have explained that there is no need for an emergent MRI of her knee today. I do suggest that she get [address] today is negative and does not show any underlying fracture. However her injury has only been 24 hours all lots of swelling. She is given medication for comfort along with crutches. I was immediately available in the department for consultation. Documentation has been reviewed. I agree with assessment and plan.
[2022-04-14] MEDS: KETOROLAC 30 MG/ML VIAL 15 MG IM (15:35)
[2022-04-14] MEDS: methocarbamoL 500 MG TABLET 750 MG PO (15:36)
[2022-04-14] MEDS: HYDROMORPHONE 1 MG INJ IM (15:36)
[2022-04-14 17:06] VITALS: BP 152/66; PULSE 65; RESP 18; O2SAT 97
== END 2022-04-14 17:14 | disposition home or self-care (01) ==
PROVIDERS: Emergency Provider Nurse Practitioner Critical Care Medicine; PCP Family Medicine
DX: M25.461 Effusion, right knee (principal); M17.11 Unilateral primary osteoarthritis, right knee; M25.561 Pain in right knee; X50.1XXA Overexertion from prolonged static or awkward postures, initial encounter; Y99.0 Civilian activity done for income or pay
CPT/HCPCS: 73560; 73700; 96372; 99284; J1170; J1885

== ENCOUNTER → 2022-05-03 10:46 | Outpatient (CLI) | payer OTHER, SELFPAY ==
[2021-01-12 10:25] VITALS: BMI 39.1
--- NOTE | 2022-05-03 | DI.MRI.S_ITS ---
PROCEDURE: MR KNEE RT WO CON INDICATIONS: Unspecified internal derangement of right knee TECHNIQUE: Noncontrast sagittal PD fast spin echo and T2 fast spin echo with fat saturation, sagittal 3-D FLASH with fat saturation; coronal T1 spin echo and PD fast spin echo with fat saturation, and axial PD fast spin echo with fat saturation through the knee. COMPARISON: None. FINDINGS: Image quality: Excellent. Menisci: There is a complex tear involving the posterior horn and body of the patient's medial meniscus which extends to both superior and inferior joint surfaces. There is also some fraying along the free edge of the body of the patient's lateral meniscus. Cruciate ligaments: The anterior and posterior cruciate ligaments appear intact. Medial structures: The medial collateral ligament appears intact. The posterior oblique ligament, semimembranosus tendon insertions, oblique popliteal ligament, and meniscocapsular junction appear intact. Visualized portions of the pes anserinus tendons appear normal. No abnormal bursal fluid. Lateral structures: The lateral collateral ligament, long and short heads of the biceps femoris tendon appear intact. The popliteus tendon appears normal; the popliteofibular ligament appears intact. The posterosuperior and anteroinferior popliteomeniscal fascicles appear intact. The arcuate and fabellofibular ligaments appear intact, on either side of the lateral inferior geniculate artery. Iliotibial band appears normal. Anterior structures: The quadriceps and patellar tendons appear intact. Patellar alignment is normal. No femoral trochlear dysplasia or ventral trochlear prominence. No edema in the infrapatellar fat pad. Bones and cartilage: There is moderate to severe chondromalacia involving the articular surface of the medial compartment with some moderate chondromalacia involving the patellofemoral joint. Joint space: There is a small knee joint effusion and a small Yanes cyst present. Incidentally noted are some varicosities present in the subcutaneous tissues along the medial aspect of the patient's knee. IMPRESSION: 1. Complex tear involving the posterior horn and body of the patient's medial meniscus extending both to superior and inferior joint surfaces. 2. Truncation along the free edge of the body of the patient's lateral meniscus. 3. Moderate to severe chondromalacia involving the articular surface of the medial compartment. 4. Moderate chondromalacia patellofemoral joint. 5. Small knee joint effusion. 6. Small Yanes's cyst. 7. Varicosities in the subcutaneous tissues along the medial aspect of the knee. Dictated by: David Albrecht M.D. on 05/03/2022 at 11:41 Approved by: David Albrecht M.D. on 05/03/2022 at 11:48
== END ==
PROVIDERS: PCP Family Medicine; Referring Provider Orthopaedic Surgery; Visit Provider Orthopaedic Surgery
DX: S83.231A Complex tear of medial meniscus, current injury, right knee, initial encounter (principal); M22.41 Chondromalacia patellae, right knee; M23.91 Unspecified internal derangement of right knee; M25.461 Effusion, right knee; M71.21 Synovial cyst of popliteal space [Baker], right knee; I83.91 Asymptomatic varicose veins of right lower extremity
CPT/HCPCS: 73721

== ENCOUNTER → 2022-05-31 10:50 | Outpatient (CLI) | payer OTHER, SELFPAY ==
[2021-01-12 10:25] VITALS: BMI 39.1
--- NOTE | 2022-05-31 10:53 | DI.CT.S_ITS ---
PROCEDURE: CT SHOULDER RIGHT WITHOUT CON INDICATIONS: Other specific joint derangements of right shoulde TECHNIQUE: Noncontrast 1-1.5 mm thick sections acquired from the acromioclavicular joint to the inferior scapula, with coronal and sagittal reformatting. COMPARISON: None. FINDINGS: Image quality: Excellent. Bones: Imaging finding shows no evidence for acute osseous abnormality involving the patient's right shoulder. There appears to be surgical screws present in the region of the bicipital groove. There is some mild AC joint degenerative change present. No significant glenohumeral joint degenerative change is seen. Soft tissues: Soft tissues appear within normal limits. . IMPRESSION: 1. No evidence for acute osseous abnormality involving the patient's right shoulder. 2. Prior postsurgical changes in the region of the bicipital groove suggesting prior surgical repair of the long head biceps tendon. 3. Mild AC joint degenerative change. Dictated by: David Albrecht M.D. on 05/31/2022 at 11:49 Approved by: David Albrecht M.D. on 05/31/2022 at 11:54
== END ==
PROVIDERS: PCP Family Medicine; Referring Provider Orthopaedic Surgery; Visit Provider Orthopaedic Surgery
DX: M24.811 Other specific joint derangements of right shoulder, not elsewhere classified (principal)
CPT/HCPCS: 73200

== ENCOUNTER → 2022-07-08 14:56 | Outpatient (CLI) | payer OTHER, BC, SELFPAY ==
[2021-01-12 10:25] VITALS: BMI 39.1
[2022-07-08 16:25] LABS: Estimated Glomerular Filt Rate > 60 mL/min (>60)
== END ==
PROVIDERS: PCP Family Medicine; Referring Provider Radiology Diagnostic Radiology; Visit Provider Radiology Diagnostic Radiology
DX: I72.8 Aneurysm of other specified arteries (principal)
CPT/HCPCS: 36415; 82565

== ENCOUNTER → 2022-07-13 09:30 | Outpatient (CLI) | payer OTHER, BC, SELFPAY ==
[2021-01-12 10:25] VITALS: BMI 39.1
--- NOTE | 2022-07-13 | DI.CT.S_ITS ---
PROCEDURE: CT UE RT W CON INDICATIONS: Unspecified rotator cuff tear or rupture of right shoulder, TECHNIQUE: After the intra-articular administration of 12 mL of dilute non-ionic contrast, 1-1.5 mm thick sections acquired from the acromioclavicular joint to the inferior scapula, with coronal and sagittal reformatting. COMPARISON: [facility], CT, CT SHOULDER RIGHT WITHOUT CON, 05/31/2022, 10:58. FINDINGS: Image quality: Excellent. Bones: Postsurgical changes are seen involving anterior aspect of humeral head which may indicate proximal biceps tendon repair unchanged from prior study. No acute fracture or dislocation. Mild acromioclavicular joint and glenohumeral joint osteoarthritic changes are again seen with joint space narrowing and subchondral sclerosis. No suspicious bony lesions. Visualized right upper ribs are intact. Soft tissues: There is no full-thickness rotator cuff tendon rupture. Suggestion of low to moderate grade articular surface partial-thickness tear involving distal supraspinatus and infraspinatus is seen extending to musculotendinous junction. Distal subscapularis tendon is grossly intact. Sagittal images shows no significant muscle atrophy. No abnormal soft tissue calcifications. No gross intra-articular loose bodies. Limited evaluation of right shoulder labrum shows subtle irregularity involving superior anterior labrum at 1 to 2 o'clock position concerning for subtle superior anterior labral tear. Proximal intra-articular portion of long head of biceps tendon is thickened. IMPRESSION: 1. Postsurgical changes in anterior aspect of humeral head from prior biceps tendon repair. 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 No fracture or dislocation. No suspicious bony lesions. 2. Low to moderate grade articular surface partial-thickness tear involving distal supraspinatus and infraspinatus. No full-thickness rotator cuff tendon rupture. No significant muscle atrophy. 3. Finding may represent very subtle superior anterior labral tear at 1 to 2 o'clock position. 4. Proximal intra-articular portion of long head of biceps tendinosis. Dictated by: Boaz Elizondo M.D. on 07/13/2022 at 11:26 Approved by: Boaz Elizondo M.D. on 07/13/2022 at 13:02
--- NOTE | 2022-07-13 | DI.RAD.S_ITS ---
PROCEDURE: FL SHOULDER INJECTION MR/CT RT INDICATIONS: Unspecified rotator cuff tear or rupture of right shoulder, COMPARISON: [facility], CT, CT UE RT W CON, 07/13/2022, 10:15. TECHNIQUE: The indications, alternatives, benefits, risks, and complications of the procedure were explained to the patient. Written informed consent was obtained and placed in the chart. The shoulder was examined fluoroscopically and a site for needle placement chosen for entry into the glenohumeral joint from an anterior approach. The skin was prepped and draped in a sterile fashion, and 1% lidocaine infiltrated from skin down to joint capsule. A spinal needle was inserted into the glenohumeral joint, and a small amount of iodinated contrast media injected to confirm intra-articular placement of the needle tip. This was followed by approximately 12 mL of iodinated contrast. The needle was removed and a dressing was applied. The patient was given postprocedural instructions and sent to the CT suite for imaging. FINDINGS: A single fluoroscopic spot image demonstrates intra-articular location of injected iodinated contrast. IMPRESSION: Successful fluoroscopically guided administration of iodinated contrast solution into the shoulder joint for CT arthrogram. Dictated by: Shaquille Garay M.D. on 07/13/2022 at 11:18 Approved by: Shaquille Garay M.D. on 07/13/2022 at 11:19
== END ==
PROVIDERS: PCP Family Medicine; Referring Provider Orthopaedic Surgery; Visit Provider Orthopaedic Surgery
DX: M75.101 Unspecified rotator cuff tear or rupture of right shoulder, not specified as traumatic (principal)
CPT/HCPCS: 23350; 73201; 77002

== ENCOUNTER 2024-03-27 21:18 | Emergency (ER) | payer BC, MEDICARE, OTHER, SELFPAY ==
[2021-01-12 10:25] VITALS: BMI 39.1
[2024-03-27 21:27] VITALS: BP 167/76; PULSE 81; RESP 23; TEMP 36.9; O2SAT 95; BMI 33.9
[2024-03-27 21:31] VITALS: BP 145/73; PULSE 94; RESP 29; O2SAT 94
[2024-03-27] MEDS: ALBUTEROL/IPRATROPIUM 3 ML AMPUL 6 ML INH (21:38)
--- NOTE | 2024-03-27 21:53 | DI.RAD.S_ITS ---
PROCEDURE: XR CHEST 2V INDICATIONS: shortness of breath, cough TECHNIQUE: 2 views of the chest were acquired. COMPARISON: [facility], CR, XR CHEST 1V, 07/28/2021, 10:51. FINDINGS: Surgical changes and devices: None. Lungs and pleura: Ill-defined airspace opacities are noted in right infrahilar region. No pleural effusions or pneumothorax. Mediastinum: Mediastinal contours are normal. Heart size is enlarged. Bones and chest wall: No suspicious bony abnormalities. Soft tissues appear unremarkable. IMPRESSION: Finding is suggestive of small right lower lobe infiltrate. No pleural effusion or pneumothorax. Dictated by: Boaz Elizondo M.D. on 03/27/2024 at 22:18 Approved by: Boaz Elizondo M.D. on 03/27/2024 at 22:19
[2024-03-27 22:04] VITALS: PULSE 81; RESP 31; O2SAT 95
--- NOTE | 2024-03-27 22:18 | ED_ITS ---
HPI - SOB/Dyspnea General Chief Complaint: Shortness of Breath/Dyspnea Stated Complaint: SOB, cold, low O2 Time Seen by Provider: 03/27/24 21:26 Source: patient Mode of arrival: Ambulatory Limitations: no limitations History of Present Illness HPI Narrative: 68-year-old female with history of hidradenitis suppurativa, unspecified lung disease (previously told asthma, but tests indicate otherwise) presents for 1 d ay of increased wheezing and shortness of breath. Patient states that she has had 2-3 days of nonspecific nasal congestion and upper respiratory infections prior to shortness of breath onset. Reports room oxygen saturations 92%. Negative home COVID-19 test. Patient states that she previously was on Humira for hidradenitis suppurativa, however due to insurance issues she has not been on Humira for several months. Related Data Home Medications Medication Instructions Recorded Confirmed atorvastatin 10 mg tablet (Lipitor) 20 mg PO BEDTIME 02/21/19 02/14/24 levothyroxine 50 mcg capsule 50 mcg PO QAM 02/21/19 02/14/24 aspirin 81 mg chewable tablet 81 mg PO DAILY 07/04/19 02/14/24 (Aspirin Childrens) dupilumab 300 mg/2 mL subcutaneous 300 mg SUBCUT Q2W 08/01/19 02/14/24 syringe (Dupixent) cholecalciferol (vitamin D3) 125 125 mcg PO DAILY 12/25/19 02/14/24 mcg (5,000 unit) capsule prednisolone acetate 1 % eye 1 drp EYE-RIGHT BID 08/25/20 02/14/24 drops,suspension (Pred Forte) budesonide 160 mcg-glycopyr 9 2 inh inhalation BID 12/04/20 02/14/24 mcg-formot 4.8 mcg/actuation HFA inhaler (Breztri Aerosphere) adalimumab 80 mg/0.8 mL 80 mg SUBCUT .BiWeekly 02/14/24 02/14/24 subcutaneous pen kit (Humira(CF) Pen) Previous Rx's Medication Instructions Recorded levalbuterol tartrate 45 2 puff inhalation Q4-6H PRN 08/24/20 mcg/actuation aerosol inhaler shortness of breath or wheezing (Xopenex HFA) #15 grams ipratropium 0.5 mg-albuterol 3 mg 3 ml INH RTBID #50 mL 03/07/21 (2.5 mg base)/3 mL nebulization soln prednisone 10 mg tablet 40 mg (4 x 10 mg) PO DAILY #20 tabs 08/31/20 albuterol sulfate 2.5 mg/3 mL 2.5 mg (3 mL) inhalation Q4-6H PRN 07/28/21 (0.083 %) solution for nebulization shortness of breath or wheezing #90 mL prednisone 20 mg tablet 20 mg PO DAILY #30 tabs 07/28/21 diclofenac sodium 1 % topical gel 4 g topical QID #100 grams 04/14/22 ketorolac 10 mg tablet 10 mg PO Q8H PRN pain #30 tabs 04/14/22 methocarbamol 750 mg tablet 750 mg PO TID muscle spasms #30 04/14/22 tabs oxycodone-acetaminophen 5 mg-325 1 tab PO Q6H PRN pain #14 tabs 04/14/22 mg tablet (Percocet) trazodone 100 mg tablet 100 mg PO BEDTIME #90 tabs 08/17/23 venlafaxine 150 mg 150 mg PO DAILY #90 caps 08/17/23 capsule,extended release 24 hr (Effexor XR) albuterol sulfate 1.25 mg/3 mL 2.5 mg (6 mL) inhalation Q4-6H PRN 03/27/24 solution for nebulization shortness of breath or wheezing #75 mL azithromycin 250 mg tablet See Rx Instructions PO .COMPLEX #6 03/27/24 tabs prednisone 20 mg tablet 40 mg (2 x 20 mg) PO DAILY #10 tabs 03/27/24 Allergies Allergy/AdvReac Type Severity Reaction Status Date / Time adhesive tape Allergy Severe rash Verified 02/14/24 09:08 pseudoephedrine Allergy Severe tachy Verified 02/14/24 09:08 [From Sudafed] Sulfa (Sulfonamide Allergy Severe hives Verified 02/14/24 09:08 Antibiotics) fluticasone Allergy Intermediate hives Verified 02/14/24 09:08 [From Advair Diskus] salmeterol Allergy Intermediate hives Verified 02/14/24 09:08 [From Advair Diskus] naproxen Allergy Mild hives Verified 02/14/24 09:08 erythromycin base AdvReac Intermediate vomiting Verified 02/14/24 09:08 Patient History Medical History Diabetes Hypothyroid History of posttraumatic stress disorder (PTSD) Anxiety Major depressive disorder, recurrent severe without psychotic features Surgical History H/O hysterectomy with oophorectomy H/O dilation and curettage S/P rotator cuff repair H/O sinus surgery History of left knee surgery H/O left wrist surgery Hx of breast biopsy Social History household members: spouse Smoking Status: Never smoker alcohol intake: current Smoking Status: Never smoker alcohol intake frequency: 0-2 drinks per day Substance Use Type: does not use Exam Initial Vital Signs Initial Vital Signs: Vital Signs Temperature 98.5 F 03/27/24 21:27 Pulse Rate 81 03/27/24 21:27 Respiratory Rate 23 03/27/24 21:27 Blood Pressure 167/76 H 03/27/24 21:27 Pulse Oximetry 95 03/27/24 21:27 Oxygen Delivery Method Room Air 03/27/24 21:27 Const: Awake, alert, ill-appearing, nontoxic Cardiac: regular rate, regular rhythm RESP: Increased work of breathing, loud expiratory wheezes upper and lower lung gregg, having to catch her breath at end Of long sentences MSK: No edema, full range of motion, pulses equal Skin: Warm, Dry, intact, no rashes Neuro: AO x3, CN II-XII grossly intact, moves all extremities Course Orders Ordered: ED Orders 03/27/24 21:33 RT Consult Eval and Treat NOW 03/27/24 21:53 Chest [XR chest 2V] Stat Discontinued Medications Albuterol (Albuterol Hfa Prepack) 1 box MISC DIRECTED ONE Stop: 03/27/24 23:31 Last Admin: 03/27/24 23:36 Dose: 1 box Documented By: MR Albuterol/Ipratropium (Albuterol/Ipratropium 3 Ml Ampul) 6 ml INH NOW ONE Stop: 03/27/24 21:35 Last Admin: 03/27/24 21:38 Dose: 6 ml Documented By: MR Albuterol/Ipratropium (Albuterol/Ipratropium 3 Ml Ampul) 3 ml INH NOW ONE Stop: 03/27/24 22:14 Last Admin: 03/27/24 22:27 Dose: 3 ml Documented By: Dexamethasone (Dexamethasone 10 Mg/Ml Vial) 10 mg PO NOW ONE Stop: 03/27/24 22:20 Last Admin: 03/27/24 22:36 Dose: 10 mg Documented By: MANUELG Vital Signs Vital signs: Vital Signs - 8 hr 03/27/24 21:27 03/27/24 21:31 03/27/24 21:31 Temperature 98.5 F Pulse Rate 81 94 H Respiratory Rate 23 29 H Blood Pressure 167/76 H 145/73 H Pulse Oximetry 95 94 Oxygen Delivery Method Room Air 03/27/24 22:04 03/27/24 22:37 03/27/24 23:00 Temperature Pulse Rate 81 84 85 Respiratory Rate 31 H 20 21 Blood Pressure Pulse Oximetry 95 95 Oxygen Delivery Method 03/27/24 23:30 Temperature Pulse Rate 99 H Respiratory Rate 20 Blood Pressure Pulse Oximetry 98 Oxygen Delivery Method MDM - SOB/Dyspnea Differential Diagnosis Differential diagnosis: Likely acute exacerbation of chronic obstructive airways disease, community acquired pneumonia and asthma with exacerbation Imaging Data Chest x-ray: Radiologist's Impression: PROCEDURE: XR CHEST 2V INDICATIONS: shortness of breath, cough TECHNIQUE: 2 views of the chest were acquired. COMPARISON: [facility], , XR CHEST 1V, 07/28/2021, 10:51. FINDINGS: Surgical changes and devices: None. Lungs and pleura: Ill-defined airspace opacities are noted in right infrahilar region. No pleural effusions or pneumothorax. Mediastinum: Mediastinal contours are normal. Heart size is enlarged. Bones and chest wall: No suspicious bony abnormalities. Soft tissues appear unremarkable. IMPRESSION: Finding is suggestive of small right lower lobe infiltrate. No pleural effusion or pneumothorax. Dictated by: Boaz Elizondo M.D. on 03/27/2024 at 22:18 Approved by: Boaz Elizondo M.D. on 03/27/2024 at 22:19 [facility] Narrative Medical decision making narrative: Shortness of breath with wheezing, low O2 sats at home. Patient did have increased work of breathing on arrival, oxygen saturations at 95% on room air. Respiratory therapy paged to administer DuoNeb treatments. Two-view chest x-ray is suggestive of trace right lower lobe pneumonia. Patient received 3 nebulizer treatments as well as oral Decadron and reports feeling significantly improved. Patient was now resting comfortably in bed, able to speak in complete sentences without dyspnea. There are still trace and expiratory wheezes in upper lung gregg, however patient states that she feels improved enough and wants to go home. Patient was informed of chest x-ray findings. We will treat as community-acquired pneumonia with azithromycin. Additional steroid burst and albuterol sent to pharmacy of choice. ED return precautions discussed at bedside. Discharge Plan Departure Patient Disposition: Home Clinical Impression: Community acquired pneumonia, Dyspnea, Wheezing Instructions: DI for Pneumonia -- Adult Activity Restrictions/Additional Instructions: Your chest x-ray shows that you may have a trace of pneumonia on the right-hand side. This overall appears very mild. Finish all of your antibiotics as prescribed even if you feel better. Steroids and nebulizers has been sent to your pharmacy. Follow up with your primary care doctor. If your shortness of breath worsens despite therapy please come back to the emergency department for repeat evaluation. Prescriptions: New prednisone 20 mg tablet 40 mg PO DAILY Qty: 10 0RF albuterol sulfate 1.25 mg/3 mL solution for nebulization 2.5 mg inhalation Q4-6H PRN (Reason: shortness of breath or wheezing) Qty: 75 0RF azithromycin 250 mg tablet See Rx Instructions .ROUTE .COMPLEX Qty: 6 0RF Rx Instructions: For 250 mg dose pack: take 500 mg today (day 1), then 250 mg for 4 days (days 2-5) No Action levothyroxine 50 mcg capsule 50 mcg PO QAM atorvastatin [Lipitor] 10 mg tablet 20 mg PO BEDTIME cholecalciferol (vitamin D3) 125 mcg (5,000 unit) capsule 125 mcg PO DAILY Breztri Aerosphere 160-9-4.8 mcg/actuation HFA aerosol inhaler 2 inh inhalation BID venlafaxine [Effexor XR] 150 mg capsule,extended release 24hr 150 mg PO DAILY Qty: 90 3RF trazodone 100 mg tablet 100 mg PO BEDTIME Qty: 90 3RF aspirin [Aspirin Childrens] 81 mg tablet,chewable 81 mg PO DAILY Dupixent Syringe 300 mg/2 mL syringe 300 mg SUBCUT Q2W Humira(CF) Pen 80 mg/0.8 mL pen injector kit 80 mg SUBCUT .BiWeekly Rx Instructions: administer as 2 x 40 mg doses every 2 weeks levalbuterol tartrate [Xopenex HFA] 45 mcg/actuation HFA aerosol inhaler 2 puff inhalation Q4-6H PRN (Reason: shortness of breath or wheezing) Qty: 15 0RF prednisolone acetate [Pred Forte] 1 % drops,suspension 1 drp EYE-RIGHT BID prednisone 10 mg tablet 40 mg PO DAILY Qty: 20 0RF Rx Instructions: take 4 tabs for 2 days then 3 tabs for 2 days then 2 tabs for 2 days then 1 tab for 2 days ipratropium-albuterol 0.5 mg-3 mg(2.5 mg base)/3 mL Solution For Nebulization 3 ml INH RTBID Qty: 50 0RF albuterol sulfate 2.5 mg /3 mL (0.083 %) solution for nebulization 2.5 mg inhalation Q4-6H PRN (Reason: shortness of breath or wheezing) Qty: 90 0RF prednisone 20 mg tablet 20 mg PO DAILY Qty: 30 0RF Rx Instructions: use as directed methocarbamol 750 mg tablet 750 mg PO TID Qty: 30 0RF oxycodone-acetaminophen [Percocet] 5-325 mg tablet 1 tab PO Q6H PRN (Reason: pain) Qty: 14 0RF diclofenac sodium 1 % gel 4 g topical QID Qty: 100 0RF Rx Instructions: apply to rt knee as needed for pain ketorolac 10 mg tablet 10 mg PO Q8H PRN (Reason: pain) Qty: 30 0RF Rx Instructions: take with food and water Referrals: Miscellaneous,Doctor, MD [Non-Staff] - Stand Alone Forms: Patient Portal/API
[2024-03-27] MEDS: ALBUTEROL/IPRATROPIUM 3 ML AMPUL INH (22:27)
[2024-03-27] MEDS: DEXAMETHASONE 10 MG/ML VIAL PO (22:36)
[2024-03-27 22:37] VITALS: PULSE 84; RESP 20
[2024-03-27 23:00] VITALS: PULSE 85; RESP 21; O2SAT 95
[2024-03-27 23:30] VITALS: PULSE 99; RESP 20; O2SAT 98
[2024-03-27] MEDS: ALBUTEROL HFA PREPACK 1 BOX MISC (23:36)
== END 2024-03-27 23:47 | disposition home or self-care (01) ==
PROVIDERS: Emergency Provider Emergency Medicine; PCP Student in an Organized Health Care Education/Training Program
DX: J18.9 Pneumonia, unspecified organism (principal); R06.00 Dyspnea, unspecified; R06.2 Wheezing
CPT/HCPCS: 71046; 94640; 99283; J1100